=== PATIENT | female | born 1950 | race Caucasian/White ===

== ENCOUNTER 2020-02-24 15:37 | Inpatient (IN) | payer MEDICARE, SELFPAY ==
[2020-02-24] VITALS (7 sets, daily range): BP systolic 126–153; BP diastolic 50–69; PULSE 65–90; RESP 16–20; TEMP 36.6–36.7; O2SAT 95–98; BMI 28.5
--- NOTE | ~2020-02-24 | CT_ITS ---
EXAMINATION: CT abdomen pelvis w con DATE: 02/24/2020 19:38 INDICATION: Abdominal pain. TECHNIQUE: Computed tomography (CT) of the abdomen and pelvis was performed with 100 mL Omnipaque 350 intravenous contrast. Automated exposure control and iterative reconstruction technique were employe d. The dose-length product was 772.20 mGy-cm. COMPARISON: CT abdomen and pelvis 09/30/2017 FINDINGS: The visualized portions of the lung bases demonstrate minimal atelectasis on the left. No p leural effusion. There is left atrial enlargement of the heart. There are coronary artery calcificati ons. There are calcifications of the aortic valve. No pericardial effusion. The liver demonstrates samuels rface nodularity and hypertrophy of left lateral segment, consistent with cirrhosis. The spleen is no rmal in size. There are gallstones in the gallbladder, which is normal in size. The pancreas and adre nal glands are normal. There is cortical thinning of the kidneys. There is a 8 mm cyst in right kidne y. There is a left inguinal hernia containing fat. There is diverticulosis of the colon without evide nce of diverticulitis. There are no dilated loops of bowel. The appendix is normal. There are changes of fundoplication of the stomach. There are no pathologically enlarged lymph nodes. There is no free intraperitoneal fluid. There is calcified atherosclerosis of the aorta and many of the other arterie s. There is lumbar levocurvature and severe spondylosis. There is a chronic burst fracture of T12. Th ere is a chronic compression fracture of L3. IMPRESSION: 1. Cirrhosis of the liver. 2. Cholelithiasis. Reviewed, dictated and finalized at location A.
--- NOTE | 2020-02-24 16:11 | ECG_ITS ---
Measurements Intervals [place] Rate: 67 P: [place]: 0 QRS: -27 QRSD: 102 T: 52 QT: 435 QTc: 460 Interpretive Statements ATRIAL FIBRILLATION DELAYED PRECORDIAL R/S TRANSITION BASELINE ARTIFACT- I, III, AVR, AVL, AVF ABNORMAL ECG Electronically Signed On 02-24-2020 16:29:24 CDT by Bladimir Stein D.O.
[2020-02-24 16:22] LABS: Basophils Percent Auto 0.3 % (0.2-1.2); Eosinophils Absolute Auto 0.3 K/mm3 (0-0.3); Eosinophils Percent Auto 4.2 % (0-4.4); Hematocrit 32.1 % (37.0-47.0); Hemoglobin 10.2 g/dL (12.0-15.0); Immature Granulocyte Absolute 0.05 K/mm3 (0.00-0.031); Immature Granulocyte Percent A 0.8 % (0-0.5); Lymphocytes Absolute Auto 1.68 K/mm3 (0.9-3.2); Lymphocytes Percent Auto 27.2 % (18.3-44.2); Mean Corpuscular HGB Conc 31.8 g/dl (32-36); Mean Corpuscular Hemoglobin 28.5 pg (26-34); Mean Corpuscular Volume 89.7 fl (80-100); Monocytes Absolute Auto 0.6 K/mm3 (0.1-0.6); Monocytes Percent Auto 9.7 % (2.6-8.5); Neutrophils Absolute Auto 3.6 K/mm3 (1.3-6.7); Neutrophils Percent Auto 57.8 % (45.5-73.1); Platelet Count Result 159 k/mm3 (150-375); Red Blood Count 3.58 M/mm3 (4.2-5.4); Red Cell Distribution Width 16.6 % (11.5-14.5); White Blood Count 6.2 K/mm3 (4.5-10.0)
[2020-02-24 16:32] LABS: INR 1.1; Prothrombin Time 13.9 Seconds (11.1-14.7)
[2020-02-24 16:33] LABS: Partial Thromboplastin Time 29.2 SECONDS (22.3-36.8)
[2020-02-24 16:37] LABS: Alanine Aminotransferase 33 U/L (4-35); Albumin Level 4.5 g/dL (3.5-5.1); Alkaline Phosphatase 80 U/L (38-126); Anion Gap 8 mmol/L (8-16); Aspartate Amino Transferase 38 U/L (14-36); Bilirubin,Total 0.6 mg/dL (0.2-1.3); Blood Urea Nitrogen 31 mg/dL (7-17); Calcium 9.4 mg/dL (8.4-10.2); Carbon Dioxide 29 mmol/L (22-30); Chloride 98 mmol/L (98-107); Estimated CRCL calculation 38 ml/min; Estimated Glomerular Filt Rate 37; Glucose 145 mg/dL (65-105); Potassium 3.9 mmol/L (3.4-5.0); Sodium 135 mmol/L (137-145)
--- NOTE | 2020-02-24 18:02 | ED.GIBLEED ---
HPI - GI Bleed General Chief complaint: GI Bleed Stated complaint: abd pain last saturday w/ dark stool Time Seen by Provider: 02/24/20 17:54 Source: RN notes reviewed History of Present Illness HPI Narrative: Patient presents emergency department from home for GI bleed. Patient states that she had an episode of abdominal pain in the upper abdomen approximately 1 week ago. She states that since that time she has been having black stools. She states today she developed dizziness when she stands up she states she does have a history of seen Dr. Simon before in the past with EGD and has had gastric ulcers. She denies vomiting she denies any fevers or chills chest pain shortness of breath or any other symptoms. Patient states she is on a aspirin 81 mg daily but denies any other blood thinners Related Data Home Medications Medication Instructions Recorded Confirmed albuterol sulfate 90 mcg/actuation 2 puff INHALATION Q4-6H PRN gm 04/25/19 02/24/20 aerosol inhaler amlodipine 5 mg tablet 5 mg PO DAILY 04/25/19 02/24/20 aspirin 325 mg tablet 325 mg PO DAILY 04/25/19 02/24/20 bumetanide 2 mg tablet 2 mg PO DAILY 04/25/19 02/24/20 ferrous sulfate 325 mg (65 mg 325 mg PO DAILY 04/25/19 02/24/20 iron) tablet,delayed release magnesium oxide 400 mg (241.3 mg 400 mg PO DAILY 04/25/19 02/24/20 magnesium) tablet pravastatin 40 mg tablet 40 mg PO DAILY 04/25/19 02/24/20 Allergies Allergy/AdvReac Type Severity Reaction Status Date / Time codeine Allergy Intermediate Hives Verified 02/24/20 18:38 meperidine Allergy Intermediate Hives Verified 02/24/20 18:38 propoxyphene Allergy Intermediate Hives Verified 02/24/20 18:38 hydromorphone AdvReac Intermediate Hives Verified 02/24/20 18:38 KETCHUP Allergy Severe Hives, Uncoded 02/24/20 18:38 swelling Review of Systems Review of Systems: Narrative: Gen.: Denies fevers or chills ENT: Denies congestion Respiratory: Denies shortness of breath or cough CV: Denies chest pain or palpitations GI: See HPI denies burning, urgency, frequency or hematuria Musculoskeletal: Denies back pain or muscle pain Neuro: Denies numbness, tingling, weakness or focal weakness Skin: Denies rash Except as documented, all other systems reviewed and negative [facility] Past Medical History Medical History (Updated 02/25/20 @ 09:29 by Gabriele Tavares MD) Acute renal insufficiency Chronic renal failure Aortic valve stenosis Atrial fibrillation Paroxysmal Basal cell carcinoma Cirrhosis noted by CT scan in 2018 with portal venous hypertension COPD (chronic obstructive pulmonary disease) Diastolic congestive heart failure Encounter for removal of skin lesion H/O: GI bleed 2018 Hypercholesterolemia Hyperlipidemia Hypertensive heart disease Moderate aortic valve stenosis Paroxysmal atrial fibrillation Pulmonary hypertension Seizure Type 2 diabetes mellitus Surgical History Surgical History H/O arthroscopy of left knee H/O dilation and curettage H/O rectal polypectomy H/O shoulder surgery Bilateral pens that were later removed. H/O: hysterectomy History of Chelly fundoplication History of tonsillectomy Family History Family History Sibling Cerebrovascular accident, Onset Age: 60 Brother and sister Family history of renal failure Patient's sister is Patient's brother is Hypertension Brother Diabetes mellitus Brother and sister Mother Patient's mother is Family history of diabetes mellitus in first degree relative Heart disease Father Family history of malignant neoplasm, Onset Age: 88 Leukemia Hypertension Social History Social History Social History: The patient lives with her Pawan who is a durable power criminal attorney for he
[2020-02-24 18:19] LABS: Add Urine Microscopic? YES; Appearance Urine Clear (Clear); Bilirubin Urine Negative (Negative); Blood Urine Negative (Negative); Color Urine Straw (Yellow); Glucose Urine UA Negative (Negative); Ketones Urine Negative (Negative); Leukocyte Esterase Ur Negative LEU/UL (Negative); Nitrate Urine Negative (Negative); Protein Urine Negative (Negative); RBC Urine 0-2 /hpf (0-2); Specific Grav Ur 1.009 (1.001-1.035); Squamous Epithelial Cell Urine Occasional /hpf (Few); Urobilinogen Urine Negative mg/dL (<2.0); WBC Urine 0-3 /hpf
[2020-02-24 18:24] LABS: Lipase 97 U/L (23-300)
[2020-02-24] MEDS: PANTOPRAZOLE SODIUM IV 40 MG VIAL IV PUSH (18:27)
[2020-02-24 21:01] LABS: Glucose Point of Care 122 (65-105)
--- NOTE | 2020-02-24 21:01 | ADMGEN ---
This patient, Nisha Lu, was admitted to IMU Room 200-01. Patient/family oriented to hospital policies and general routines including ID bracelet, bed and alarms, visiting hours, pain management, procedures, bathroom and other care routines, personal items, smoking policy, room service/diet, and visiting hours. Valuables list has been completed. Information on how to activate the Rapid Response Team has been discussed. Patient/Family are encouraged to report perceived risks to care and to ask questions if they do not understand what they are told or what they should do. report from [facility] arrived approx [id number]
[2020-02-24] MEDS: SODIUM CHLORIDE 0.9% IV 1,000 ML 125 ML IV CONT (21:09)
[2020-02-24 21:32] LABS: Hematocrit 31.2 % (37.0-47.0); Hemoglobin 10.1 g/dL (12.0-15.0)
[2020-02-25] VITALS (18 sets, daily range): BP systolic 119–178; BP diastolic 50–65; PULSE 55–74; RESP 14–28; TEMP 36.1–36.9; O2SAT 96–100
--- NOTE | 2020-02-25 00:04 | PM.IMHP ---
H&P: HPI History of Present Illness Date/Time: 02/25/20 00:04 Chief complaint: GI blee, anemia, a fib Narrative: Nisha Lu is a 69 year old female who has had a history of having peptic ulcer disease in the past and had a fundoplication in the past. The patient has seen Dr. eller many years ago. The patient stated that she had epigastric pain about 1 week ago and had dark stools than a did have a stool for while. She does not take any iron supplement although ferrous sulfate is listed on her home medication list. Patient's hemoglobin 2 years ago was between 6 point drain 8.5. I have nothing to represent her lab work between 2018 and now. Other than today's H&H was 10.2 and 32.1 and repeat was 10.1 and 31.2. The patient called her primary care doctor who instructed her to come to the emergency room because the dark stools. The patient no longer has any epigastric discomfort. She is not having any bloody stools. She has no hematemesis either. Chills or cough. Patient developed some dizziness when she stands up. Patient still continues to smoke 2 or 3 cigarettes a day. Patient's BUN is 31 creatinine 1.4. However when I look into the past history in 2018 her creatinine was anywhere from 1.1-1.8.Of breath. The patient has a history of COPD. Patient has some valve regurgitation and sees [facility] ear. A CT then of the abdomen and pelvis was read as roses of the liver and cholelithiasis. Review of Systems Review of Systems: All systems reviewed & are unremarkable except as noted in HPI and below Constitutional: Constitutional: Reports as per HPI and Reports no additional constitutional complaints Eyes: Eyes: Reports as per HPI and Reports no additional eye complaints ENT: Reports system reviewed and no additional complaints, except as documented and Reports Normal hearing present Cardiovascular: Cardiovascular: Reports no additional cardiovascular complaints Respiratory: Respiratory: Reports no additional respiratory complaints and Reports no additional respiratory complaints Gastrointestinal: Gastrointestinal: Reports as per HPI and Reports no additional gastrointestinal complaints Musculoskeletal: Musculoskeletal: Reports no additional musculoskeletal complaints Integumentary/Breasts: Skin/Breast: Reports system reviewed and no additional complaints, except as docu and Reports as per HPI Neurologic: Reports system reviewed and no additional complaints, except as documented, Reports as per HPI and Reports Normal hearing present Psychiatric: Psychiatric: Reports no additional psychiatric complaints and Reports as per HPI Endocrine: Endocrine: Reports no additional endocrine complaints Hematologic/Lymphatic: Hematologic/Lymphatic: Reports no additional hematologic/lymphatic complaints Allergic/Immunologic: Allergic/Immunologic: Reports no additional allergic/immunologic complaints [facility] Past Medical History Medical History (Updated 02/25/20 @ 00:20 by Pamela Kaiser NP) Acute renal insufficiency Chronic renal failure Aortic valve stenosis Atrial fibrillation Paroxysmal Basal cell carcinoma COPD (chronic obstructive pulmonary disease) Diastolic congestive heart failure Encounter for removal of skin lesion Hypercholesterolemia Hyperlipidemia Hypertensive heart disease Moderate aortic valve stenosis Paroxysmal atrial fibrillation Pulmonary hypertension Seizure Type 2 diabetes mellitus Surgical History Surgical History (Updated 02/25/20 @ 00:20 by Pamela Kaiser NP) H/O arthroscopy of left knee H/O dilation and curettage H/O rectal polypectomy H/O shoulder surgery Bilateral pens that were later removed. H/O: hysterectomy History of Chelly fundoplication History of tonsillectomy Family History Family History (Updated 02/25/20 @ 00:22 by Pamela Kaiser NP) Sibling Cerebrovascular accident, Onset Age: 60 Brother and sister Family history of renal failure Patie
[2020-02-25 03:23] LABS: Basophils Percent Auto 0.5 % (0.2-1.2); Eosinophils Absolute Auto 0.3 K/mm3 (0-0.3); Eosinophils Percent Auto 4.2 % (0-4.4); Hematocrit 29.7 % (37.0-47.0); Hemoglobin 9.4 g/dL (12.0-15.0); Immature Granulocyte Absolute 0.05 K/mm3 (0.00-0.031); Immature Granulocyte Percent A 0.8 % (0-0.5); Lymphocytes Percent Auto 26.2 % (18.3-44.2); Mean Corpuscular HGB Conc 31.6 g/dl (32-36); Mean Corpuscular Hemoglobin 28.9 pg (26-34); Mean Corpuscular Volume 91.4 fl (80-100); Mean Platelet Volume 10.3 fl (7.4-10.4); Monocytes Absolute Auto 0.6 K/mm3 (0.1-0.6); Monocytes Percent Auto 9.1 % (2.6-8.5); Neutrophils Absolute Auto 3.8 K/mm3 (1.3-6.7); Neutrophils Percent Auto 59.2 % (45.5-73.1); Platelet Count Result 149 k/mm3 (150-375); Red Blood Count 3.25 M/mm3 (4.2-5.4); Red Cell Distribution Width 16.3 % (11.5-14.5); White Blood Count 6.5 K/mm3 (4.5-10.0)
[2020-02-25 03:32] LABS: Anion Gap 5 mmol/L (8-16); Blood Urea Nitrogen 25 mg/dL (7-17); Carbon Dioxide 27 mmol/L (22-30); Chloride 104 mmol/L (98-107); Estimated CRCL calculation 44 ml/min; Estimated Glomerular Filt Rate 45; Glucose 126 mg/dL (65-105); Potassium 3.8 mmol/L (3.4-5.0); Sodium 136 mmol/L (137-145)
[2020-02-25] MEDS: SODIUM CHLORIDE 0.9% IV 1,000 ML 125 ML IV CONT (05:35)
[2020-02-25 08:25] LABS: Hematocrit 29.6 % (37.0-47.0); Hemoglobin 9.5 g/dL (12.0-15.0)
[2020-02-25] MEDS: POTASSIUM CHLORIDE 10 MEQ TABLET.ER PO (08:28)
[2020-02-25] MEDS: PANTOPRAZOLE SODIUM IV 40 MG VIAL IV PUSH ×2 (08:28→17:33)
[2020-02-25] MEDS: METOPROLOL TARTRATE 25 MG TABLET PO ×2 (08:28→19:57)
[2020-02-25] MEDS: PRAVASTATIN SODIUM 20 MG TABLET 40 MG PO (08:28)
[2020-02-25] MEDS: MAGNESIUM OXIDE 400 MG TABLET PO (08:28)
[2020-02-25] MEDS: BUMETANIDE 1 MG TABLET 2 MG PO (08:29)
--- NOTE | 2020-02-25 08:58 | WPDCN ---
Assessment and Plan Assessment and plan (1) Atrial fibrillation: Code(s): I48.91 - Unspecified atrial fibrillation Status: Chronic Assessment and Plan: Patient with a history of paroxysmal AFib, now appears persistent, with a controlled heart rate of taking metoprolol 25 mg b.i.d. Has not been anticoagulated because of a history of GI bleeds. Considering referral for Watchman device, although patient still need to be able to take anticoagulants for short per time and then long-term aspirin (or Plavix). Will FU on this as OPT. Continue metoprolol. (2) Aortic valve stenosis: Code(s): I35.0 - Nonrheumatic aortic (valve) stenosis Status: Chronic Assessment and Plan: Moderate to severe aortic stenosis which appears asymptomatic. Followed in our office. Stable. (3) Diastolic congestive heart failure: Code(s): I50.30 - Unspecified diastolic (congestive) heart failure Status: Chronic Assessment and Plan: History of diastolic heart failure, appearing euvolemic now. Will follow fluid status during her hospital stay which may change depending on IV fluids, bleeding etc.. (4) GI bleed: Code(s): K92.2 - Gastrointestinal hemorrhage, unspecified Status: Acute Assessment and Plan: Melena with GI bleeding and a drop in hematocrit , while taking aspirin, occasional Naprosyn and pantoprazole. History of GI bleeds in the past. Mildly symptomatic with dizziness and mild orthostasis. Blood pressure medicines on hold. (5) Hypertensive heart disease: Code(s): I11.9 - Hypertensive heart disease without heart failure Status: Chronic Assessment and Plan: Blood pressure reasonably controlled. Spironolactone and amlodipine are on hold. Resume when we are sure she is hemodynamically stable. (6) COPD (chronic obstructive pulmonary disease): Code(s): J44.9 - Chronic obstructive pulmonary disease, unspecified Status: Chronic Assessment and Plan: Previously used Ellipta and albuterol inhalers. Seems moderately wheezy, will resume Albuteral. HPI Data of Consult Date/Time: 02/25/20 08:58 Requesting Physician: Mike Van MD Primary Care Provider: Enoch Gandhi DO Consult Narrative Narrative: Date of service: 02/25/2020 Nisha Lu is a 69 year old female We were asked to see at the request of the hospitalist for advice and opinion regarding her atrial fibrillation in consultation. She was admitted with melena and dizziness. She normally sees Dr. Colby for her paroxysmal atrial fibrillation, and aortic stenosis. The patient takes aspirin for her atrial fibrillation and Naprosyn p.r.n. for her DJD. She takes Protonix also. She was in her normal state of health until Saturday when she started having lower abdominal pain and melena. She has progressive dizziness and came to the emergency room yesterday. She was mildly orthostatic with her blood pressure dropping 25 points yesterday and her blood pressure medicines have been held. She is mildly anemic with a hematocrit status dropped down to 29. Dr. Linares has been consulted. She has been in persistent atrial fibrillation with a heart rate in the 60s. The patient has a history of a GI bleed when on Eliquis in the past. Subsequently she has been treated with aspirin and when she last saw Dr. Colby in May 2019 they discussed the Watchman device; she was going to to discuss with her and call back if she wanted to proceed with the procedure. She states that she has been distracted with her other health issues and COVID and never got back to the office. Her last echocardiogram was in July 2019 showing EF 67%, mild LVH, diastolic dysfunctio
--- NOTE | 2020-02-25 09:16 | WPDGICN ---
Assessment and Plan Assessment and plan (1) Melena: Code(s): K92.1 - Melena Status: Acute Assessment and Plan: will proceed with EGD today. she has known history of ulcer and also gastric AVM's, will check also for PGH (h/o cirrhosis), varices, etc continue with ppi for now, she is already npo trend hb (2) GI bleed: Code(s): K92.2 - Gastrointestinal hemorrhage, unspecified Status: Acute Assessment and Plan: monitor hb and transfuse if hb less than 7 (3) Cirrhosis: Code(s): K74.60 - Unspecified cirrhosis of liver Status: Acute Assessment and Plan: CT scan 2018 and again this time we will get blood work to further investigate for potential cause denies etoh, ? MEZA (4) Diastolic congestive heart failure: Code(s): I50.30 - Unspecified diastolic (congestive) heart failure Status: Chronic (5) COPD (chronic obstructive pulmonary disease): Code(s): J44.9 - Chronic obstructive pulmonary disease, unspecified Status: Chronic Assessment and Plan: by primary, still smoking counseled to quit (6) Atrial fibrillation: Code(s): I48.91 - Unspecified atrial fibrillation Status: Chronic Assessment and Plan: only using aspirin GI Consult Note Consult date/time: 02/25/20 09:16 Reason for consult: melena HPI: Nisha Lu is a 69 year old female with most recent hospitalization here 2017 with anemia, hb 7.2 and ferritin 3. She is a patient of Dr Henderson who has seen her several times because GIB, she had EGD in January 2015 and she was found to have a 2 cm antral ulcer, repeat EGD later 2014 confirmed healing of the gastric antral ulcer. She also had a previous colonoscopy in April 2016, revealing extensive diverticular disease, otherwise unremarkable. 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 She also has cirrhosis based on CT imaging, diastolic heart failure, COPD. She came to the hospital because last Saturday noted dark tarry stools and she has been feeling dizzy, also abdominal discomfort therefore called her doctor and was advised to come here. Blood work BUN is 31 creatinine 1.4, hb 9.4, inr 1.1, platelets 149 (130-140's in the past), ast 38, alb 4.5, normal bili. She is using pantoprazole at home, also aspirin no other blood thinners. Denies nsaid's Review of Systems Constitutional: Constitutional: Denies headache(s) and Reports weakness Eyes: Eyes: Denies blurry vision ENT: Reports Normal hearing present, Denies headache(s) and Denies neck pain Cardiovascular: Cardiovascular: Denies chest pain and Denies dyspnea Respiratory: Respiratory: Denies dyspnea Gastrointestinal: Gastrointestinal: Reports no additional gastrointestinal complaints Genitourinary: Genitourinary: Denies dysuria Musculoskeletal: Musculoskeletal: Denies neck pain Integumentary/Breasts: Skin/Breast: Denies dry skin Neurologic: Reports Normal hearing present, Reports dizziness and Denies weakness Psychiatric: Psychiatric: Denies anxiety Endocrine: Endocrine: Denies change in body appearance Hematologic/Lymphatic: Hematologic/Lymphatic: Denies easy bleeding Allergic/Immunologic: Allergic/Immunologic: Denies urticaria PMFSH Past Medical History Medical History (Updated 02/25/20 @ 09:29 by Gabriele Tavares MD) Acute renal insufficiency Chronic renal failure Aortic valve stenosis Atrial fibrillation Paroxysmal Basal cell carcinoma Cirrhosis noted by CT scan in 2018 with portal venous hypertension COPD (chronic obstructive pulmonary disease) Diastolic congestive heart failure Encounter for removal of skin lesion H/O: GI bleed 2018 Hypercholesterolemia Hyperlipidemia Hypertensive heart disease Moderate aortic valve stenosis Paroxysmal atrial fibrillation Pulmonary hypertension Seizure Type 2 diabe
--- NOTE | 2020-02-25 09:58 | PM.IMPN ---
Progress Note: A&P Assessment and Plan (1) Melena: Code(s): K92.1 - Melena Status: Acute Assessment and Plan: Patient is now s/p EGD, will resume a diet. Follow GI recs. Continue to monitor. (2) H/O: GI bleed: Code(s): Z87.19 - Personal history of other diseases of the digestive system Status: Acute Assessment and Plan: Hx of peptic ulcer and gastrici AVM, will continue to monitor. (3) Hyperlipidemia: Code(s): E78.5 - Hyperlipidemia, unspecified Status: Chronic Assessment and Plan: Low cholesterol, low fat high fiber diet. (4) Aortic valve stenosis: Code(s): I35.0 - Nonrheumatic aortic (valve) stenosis Status: Chronic Assessment and Plan: Stable, continue to monitor. Follow up i the outaptient setting. (5) Diastolic congestive heart failure: Code(s): I50.30 - Unspecified diastolic (congestive) heart failure Status: Chronic Assessment and Plan: Stable, does not appear to be in exacerbation. Continue to monitor. (6) COPD (chronic obstructive pulmonary disease): Code(s): J44.9 - Chronic obstructive pulmonary disease, unspecified Status: Chronic Assessment and Plan: Does not appear to in exacerbation, continue to monitor. (7) Hypertensive heart disease: Code(s): I11.9 - Hypertensive heart disease without heart failure Status: Chronic Assessment and Plan: Stable, resume home meds. Continue to monitor. (8) LENORA (obstructive sleep apnea): Code(s): G47.33 - Obstructive sleep apnea (adult) (pediatric) Status: Chronic Assessment and Plan: Encourage the use of CPAP at night time. (9) Atrial fibrillation: Code(s): I48.91 - Unspecified atrial fibrillation Status: Chronic Assessment and Plan: Rate controlled, has had GI bleed in the past currently on no anticoagulation. Appreciate Cardiology note.Follow recs. Subjective Date/time seen: 02/25/20 09:58 Patient seen and examined earlier today in the morning. Review of Systems Review of Systems: Narrative: Patient presented to ED due to having melena few episodes for the last 5 to 6 days. Constitutional: Comments: No weight loss, no fevers, no fatigue. Eyes: Comments: Denies any vision changes. ENT: Comments: No blurry vision, no throat pain, no ear pain, no hearing loss. Cardiovascular: Comments: No pnd or orthopnea, no sob, no chest pain. Respiratory: Comments: No changes, patient is a chronic smoker. Gastrointestinal: Gastrointestinal: Reports as per HPI Comments: Melena, several episodes. Musculoskeletal: Musculoskeletal: Reports no additional musculoskeletal complaints Integumentary/Breasts: Comments: Denies rashes, changes, discoloration, wounds. Neurologic: Comments: Denies sensation or motor deficit, no paresthesias as well. Exam Narrative: Exam Narrative: In bed in NAD, well appearing. Const: General: cooperative, healthy appearing, comfortable, no acute distress and well developed Nutritional Appearance: well nourished Orientation/consciousness: patient oriented x3 Limitations: no limitations HENMT: Head: normal to inspection and normocephalic Ears: hearing grossly normal bilaterally General nose exam: Normal external nose present Face and sinus: normal facial exam Mouth: Yes Normal oral and palatal mucosa present Eyes: General: appearance normal, both eyes and all related structures Pupils: Equal, round and reactive pupils present EOM: EOMs intact bilaterally Neck: Neck: normal visual inspection, full ROM, no lymphadenopathy and no JVD Thyroid: thyroid normal Resp: Effort & Inspection: normal respiratory effort Auscultation: clear to auscultation bilaterally Cardio: Jugular venous distension: no JVD Palpation: normal PMI Rate: regular rate Rhythm: regular rhythm Heart sounds: S1 normal heart sound present and S2 normal heart sound present GI: Inspection: normal to inspe
[2020-02-25] MEDS: LACTATED RINGERS 1,000 ML 150 ML IV CONT (12:15)
--- NOTE | 2020-02-25 12:17 | WPDANESEPPF ---
Anes - Initial Pre Proc Eval Procedure: Operation Date: 02/25/20 13:00 Proposed Procedures p Esophagogastroduodenoscopy - Gabriele Tavares MD Date/Time: 02/25/20 12:17 Surgeon: Mike Van MD Pre Op Diagnosis: GI blee, anemia, a fib Patient Data Age: 69 Gender: F Height: 1.7 m Weight: 82.3 kg Last Vital Signs Temp 36.8 C 02/25/20 12:16 Pulse 66 02/25/20 12:16 Resp 18 02/25/20 12:16 BP 178/50 H 02/25/20 12:16 Pulse Ox 97 02/25/20 12:16 Allergies Allergy/AdvReac Type Severity Reaction Status Date / Time codeine Allergy Intermediate Hives Verified 02/24/20 18:38 meperidine Allergy Intermediate Hives Verified 02/24/20 18:38 propoxyphene Allergy Intermediate Hives Verified 02/24/20 18:38 hydromorphone AdvReac Intermediate Hives Verified 02/24/20 18:38 KETCHUP Allergy Severe Hives, Uncoded 02/24/20 18:38 swelling Home Medications Medication Instructions Recorded Confirmed Type albuterol sulfate 90 mcg/actuation 2 puff INHALATION Q4-6H PRN gm 04/25/19 02/24/20 History aerosol inhaler amlodipine 5 mg tablet 5 mg PO DAILY 04/25/19 02/24/20 History aspirin 325 mg tablet 325 mg PO DAILY 04/25/19 02/24/20 History bumetanide 2 mg tablet 2 mg PO DAILY 04/25/19 02/24/20 History ferrous sulfate 325 mg (65 mg 325 mg PO DAILY 04/25/19 02/24/20 History iron) tablet,delayed release magnesium oxide 400 mg (241.3 mg 400 mg PO DAILY 04/25/19 02/24/20 History magnesium) tablet pravastatin 40 mg tablet 40 mg PO DAILY 04/25/19 02/24/20 History blood sugar diagnostic #100 each 04/30/19 02/24/20 Rx blood-glucose meter #1 each 04/30/19 02/24/20 Rx metoprolol tartrate 25 mg tablet 25 mg PO BID #60 tablet 05/11/19 02/24/20 Rx sucralfate 1 gram tablet 1 gm PO QID #120 tablet 08/02/19 02/24/20 Rx potassium chloride 10 mEq 10 meq PO DAILY #90 tablet 10/07/19 02/24/20 Rx tablet,extended release spironolactone 25 mg tablet 25 mg PO DAILY #30 tablet 11/09/19 02/24/20 Rx pantoprazole 40 mg tablet,delayed 40 mg PO QAM #30 tablet 11/10/19 02/24/20 Rx release Laboratory Tests 02/24/20 02/24/20 02/24/20 16:07 16:07 16:07 WBC 6.2 K/mm3 K/mm3 (4.5-10.0) RBC 3.58 M/mm3 L M/mm3 (4.2-5.4) Hgb 10.2 g/dL L g/dL (12.0-15.0) Hct 32.1 % L % (37.0-47.0) MCV 89.7 fl fl (80-100) MCH 28.5 pg pg (26-34) MCHC 31.8 g/dl L g/dl (32-36) RDW 16.6 % H % (11.5-14.5) Plt Count 159 k/mm3 k/mm3 (150-375) MPV 10.0 fl fl (7.4-10.4) Immature Gran % (Auto) 0.8 % H % (0-0.5) Neut % (Auto) 57.8 % % (45.5-73.1) Lymph % (Auto) 27.2 % % (18.3-44.2) Wilkin % (Auto) 9.7 % H % (2.6-8.5) Eos % (Auto) 4.2 % % (0-4.4) Baso % (Auto) 0.3 % % (0.2-1.2) Lymph # (Auto) 1.68 K/mm3 K/mm3 (0.9-3.2) Wilkin # (Auto) 0.6 K/mm3 K/mm3 (0.1-0.6) Eos # (Auto) 0.3 K/mm3 K/mm3 (0-0.3) Baso # (Auto) 0.0 K/mm3 K/mm3 (0.0-0.1) Abs Immat Gran (auto) 0.05 K/mm3 H K/mm3 (0.00-0.031) Absolute Neuts (auto) 3.6 K/mm3 K/mm3 (1.3-6.7) Absolute Nucleated RBC 0.0 K/mm3 K/mm3 (0.0-0.012) Nucleated RBC % 0.0 % % (0.0-0.2) PT 13.9 Seconds Seconds (11.1-14.7) INR 1.1 APTT 29.2 SECONDS SECONDS (22.3-36.8) Sodium 135 mmol/L L mmol/L (137-145) Potassium 3.9 mmol/L mmol/L (3.4-5.0) Chloride 98 mmol/L mmol/L (98-107) Carbon Dioxide 29 mmol/L mmol/L (22-30) Anion Gap 8 mmol/L mmol/L (8-16) BUN 31 mg/dL H mg/dL (7-17) Creatinine 1.40 mg/dL H mg/dL (0.7-1.0) Estim Creat Clear Calc 38 ml/min ml/min Estimated GFR 37 L (59 - ) Glucose 145 mg/dL H mg/dL (65-105) POC Capillary Glucose Calcium 9.4 mg/dL mg/dL (8.4-10
--- NOTE | 2020-02-25 20:49 | PC.NURSE ---
This patient, Nisha Lu, was transferred to [facility] on 02/25/20 at 2049. Personal belongings sent with patient. Belongings list checked and signed with receiving. Report given to [employer] AGUILAR. Appropriate documentation sent with patient.
[2020-02-26 06:01] VITALS: BP 134/52; PULSE 60; RESP 17; TEMP 36.5; O2SAT 97
[2020-02-26 07:08] LABS: Iron 44 ug/dL (37-170)
[2020-02-26 07:17] LABS: Percent Iron Saturation 11 % (20-50)
[2020-02-26 07:31] LABS: Hepatitis B Surface Antigen Negative (Negative)
[2020-02-26 07:37] LABS: HAV RESULT Negative (Negative); Hepatitis B Core IgM Result Negative (Negative)
[2020-02-26 07:48] LABS: Hepatitis C Virus Antibody Negative (Negative)
[2020-02-26 08:07] LABS: Magnesium 1.9 mg/dL (1.6-2.3)
[2020-02-26 08:12] LABS: Hematocrit 30.8 % (37.0-47.0); Hemoglobin 9.8 g/dL (12.0-15.0); Mean Corpuscular HGB Conc 31.8 g/dl (32-36); Mean Corpuscular Hemoglobin 28.8 pg (26-34); Mean Corpuscular Volume 90.6 fl (80-100); Mean Platelet Volume 10.4 fl (7.4-10.4); Platelet Count Result 173 k/mm3 (150-375); Red Cell Distribution Width 15.9 % (11.5-14.5); White Blood Count 6.1 K/mm3 (4.5-10.0)
--- NOTE | 2020-02-26 09:08 | WPDGIPROGNO ---
Progress Note: A&P Assessment and Plan (1) AVM (arteriovenous malformation) of stomach, acquired: Code(s): K31.819 - Angiodysplasia of stomach and duodenum without bleeding Status: Acute Assessment and Plan: non-bleeding but treated with apc denies any more bleeding and she is not feeling dizzy anymore tolerated diet hb stable she can go home by gi standpoint. (2) Melena: Code(s): K92.1 - Melena Status: Acute Assessment and Plan: resolved (3) Cirrhosis: Code(s): K74.60 - Unspecified cirrhosis of liver Status: Acute Assessment and Plan: work up pending, she can see me in office in 3-4 weeks ? mckeon related (4) Atrial fibrillation: Code(s): I48.91 - Unspecified atrial fibrillation Status: Chronic Assessment and Plan: ok to use aspirin, she is not using any other blood thinners (5) Aortic valve stenosis: Code(s): I35.0 - Nonrheumatic aortic (valve) stenosis Status: Chronic (6) Anemia: Code(s): D64.9 - Anemia, unspecified Status: Acute Assessment and Plan: stable and chronic Subjective Date/time seen: 02/26/20 09:08 Interval history: no melena, no pain or feeling dizzy. Tolerated diet EGD found small non-bleeding avm in stomach treated with apc Review of Systems Review of Systems: All systems reviewed & are unremarkable except as noted in HPI and below Exam Const: General: comfortable and no acute distress HENMT: General nose exam: Normal nares present Eyes: General: appearance normal, both eyes and all related structures Neck: Neck: no JVD Resp: Auscultation: clear to auscultation bilaterally Cardio: Rhythm: abnormal rhythm GI: Inspection: non-distended GI Palp: Yes Soft to palpation Auscultation: normal bowel sounds Skin: General skin exam: normal color Neuro: General: gait normal Speech: normal speech Extrem: General: normal to inspection Psych: Mental Status: mental status grossly normal Objective Data Vital Signs Vital Signs: Vital Signs - 24 hr 02/25/20 10:00 02/25/20 12:00 02/25/20 12:16 Temperature 98.3 F Pulse Rate 55 L 67 66 Respiratory Rate 18 Blood Pressure 178/50 H Pulse Oximetry 97 02/25/20 13:11 02/25/20 13:21 02/25/20 13:31 Temperature Pulse Rate 70 66 61 Respiratory Rate 28 H 20 22 H Blood Pressure 139/59 L 133/54 L 133/54 L Pulse Oximetry 100 100 99 02/25/20 14:00 02/25/20 16:00 02/25/20 19:54 Temperature 98.4 F Pulse Rate 68 64 Respiratory Rate 18 Blood Pressure 123/65 141/51 H Pulse Oximetry 97 02/25/20 19:57 02/26/20 06:01 Temperature 97.7 F Pulse Rate 65 60 Respiratory Rate 17 Blood Pressure 134/52 L Pulse Oximetry 97 Intake/Output Intake/Output: Intake & Output 02/23/20 02/24/20 02/25/20 02/26/20 23:59 23:59 23:59 23:59 Intake Total 1940 400 Output Total 2650 Balance -710 400 Meds/Results Medications: Active Medications Generic Name Dose Route Start Last Admin Trade Name Freq PRN Reason Stop Dose Admin Albuterol 2 puff 02/25/20 00:02 Proventil Hfa INHALATION Q4-6H PRN Shortness Of Breath Bumetanide 2 mg 02/25/20 09:00 02/25/20 08:29 Bumex Po PO 2 mg DAILY ZULEIKA Administration Magnesium Oxide 400 mg 02/25/20 09:00 02/25/20 08:28 Mag-Ox PO 400 mg DAILY ZULEIKA Administration Metoprolol Tartrate 25 mg 02/25/20 09:00 02/25/20 19:57 Lopressor PO 25 mg Q12HR ZULEIKA Administration Pantoprazole Sodium 40 mg 02/25/20 09:00 02/25/20 17:33 Protonix Iv IV PUSH 40 mg BID ZULEIKA Administration Potassium Chloride 10 meq 02/25/20 08:00 02/25/20 08:28 Kcl Tablet PO 10 meq DAILY@0800 ZULEIKA Administration Pravastatin Sodium 40 mg 02/25/20 09:00 02/25/20 08:28 Pravastatin Sodium PO 40 mg DAILY ZULEIKA Administration Radiology Results: ITS Impressions Abdomen/Pelvis CT 02/24/20 20:04 IMPRESSION: 1. Cirrhosis of t
[2020-02-26] MEDS: MAGNESIUM OXIDE 400 MG TABLET PO (09:23)
[2020-02-26] MEDS: BUMETANIDE 1 MG TABLET 2 MG PO (09:23)
[2020-02-26] MEDS: PANTOPRAZOLE SODIUM IV 40 MG VIAL IV PUSH (09:23)
[2020-02-26 09:24] VITALS: PULSE 73
[2020-02-26] MEDS: PRAVASTATIN SODIUM 20 MG TABLET 40 MG PO (09:24)
[2020-02-26] MEDS: POTASSIUM CHLORIDE 10 MEQ TABLET.ER PO (09:24)
[2020-02-26] MEDS: METOPROLOL TARTRATE 25 MG TABLET PO (09:24)
[2020-02-26 10:24] LABS: Anion Gap 6 mmol/L (8-16); Blood Urea Nitrogen 21 mg/dL (7-17); Calcium 9.1 mg/dL (8.4-10.2); Carbon Dioxide 28 mmol/L (22-30); Chloride 101 mmol/L (98-107); Estimated CRCL calculation 43 ml/min; Estimated Glomerular Filt Rate 45; Glucose 123 mg/dL (65-105); Sodium 135 mmol/L (137-145)
--- NOTE | 2020-02-26 10:34 | PM.DS ---
DS: Admitting Diagnosis Admitting Diagnosis Admitting Diagnosis: GI blee, anemia, a fib DS: Discharge Diagnosis Discharge Diagnosis (1) Anemia: Code(s): D64.9 - Anemia, unspecified Status: Acute Assessment and Plan: Follow up in the outpatient setting.Patient is known to have AVM. (2) AVM (arteriovenous malformation) of stomach, acquired: Code(s): K31.819 - Angiodysplasia of stomach and duodenum without bleeding Status: Acute Assessment and Plan: Follow up in the outpatient setting. (3) Melena: Code(s): K92.1 - Melena Status: Acute Assessment and Plan: Resolved, underwent EGD. (4) Aortic valve stenosis: Qualifiers: Cardiac valve disease etiology: nonrheumatic Qualified Code(s): I35.0 - Nonrheumatic aortic (valve) stenosis Code(s): I35.0 - Nonrheumatic aortic (valve) stenosis Status: Chronic Assessment and Plan: Unchanged, follow up in the outpatient setting. (5) COPD (chronic obstructive pulmonary disease): Code(s): J44.9 - Chronic obstructive pulmonary disease, unspecified Status: Chronic Assessment and Plan: Stable, continue home meds, continue to monitor. (6) Acute renal insufficiency: Code(s): N28.9 - Disorder of kidney and ureter, unspecified Status: Chronic Assessment and Plan: Mildly elevated creatinine (7) Atrial fibrillation: Qualifiers: Atrial fibrillation type: persistent (not longstanding) Qualified Code(s): I48.19 - Other persistent atrial fibrillation Code(s): I48.91 - Unspecified atrial fibrillation Status: Chronic Assessment and Plan: Stable, rate controlled. (8) GI bleed: Code(s): K92.2 - Gastrointestinal hemorrhage, unspecified Status: Acute Assessment and Plan: S/O EGD. DS: Summary Time Spent with Patient Time attestation: Total time spent providing and/or coordinating discharge services: Exam Narrative: Exam Narrative: 69 yo presented to ED due to melena, well appearing. Const: General: no acute distress Nutritional Appearance: average body habitus HENMT: Head: normal to inspection Ears: hearing grossly normal bilaterally General nose exam: Normal external nose present Face and sinus: normal facial exam Mouth: Yes Normal oral and palatal mucosa present Eyes: General: appearance normal, both eyes and all related structures Pupils: Equal, round and reactive pupils present EOM: EOMs intact bilaterally Neck: Neck: full ROM, no lymphadenopathy and no JVD Resp: Auscultation: clear to auscultation bilaterally Cardio: Jugular venous distension: no JVD Heart sounds: Murmur heart sound present (Aortic area.) diastolic GI: Inspection: normal to inspection GI Palp: Yes Soft to palpation and Yes No hepatosplenomegaly present Auscultation: normal bowel sounds Skin: General skin exam: normal color Lesions: no lesions Rashes: no rashes Wounds: no wounds Neuro: General: patient oriented x3 Cranial nerves: Yes CN's II-XII intact bilaterally and Yes Equal, round and reactive pupils present Extrem: General: normal to inspection DS: Data Data Completed and Pending Pending studies at discharge: Pending at discharge 02/25/20 13:05 Surgical [PTH] Routine Labs on day of discharge: Labs from last 24 hours 02/26/20 02/26/20 02/26/20 06:00 06:00 06:00 WBC RBC Hgb Hct MCV MCH MCHC RDW Plt Count MPV Sodium 135 L Potassium 4.0 Chloride 101 Carbon Dioxide 28 Anion Gap 6 L BUN 21 H Creatinine 1.20 H Estim Creat Clear Calc 43 Estimated GFR 45 L Glucose 123 H Calcium 9.1 Magnesium Iron TIBC % Saturation Ferritin Alpha-1-AT Phenotype Ceruloplasmin TSH (Reflex) NACHO Screen Mitochondria M2 IgG Ab Pending Hepatitis A IgM Ab Negative Hep Bs Antigen Negative Hep B Core IgM Ab Negative
--- NOTE | 2020-02-26 11:19 | PM.PNCARD ---
Progress Note: A&P Assessment and Plan (1) Atrial fibrillation: Qualifiers: Atrial fibrillation type: persistent (not longstanding) Qualified Code(s): I48.19 - Other persistent atrial fibrillation Code(s): I48.91 - Unspecified atrial fibrillation Status: Chronic Assessment and Plan: History of paroxysmal AFib, now appears persistent, with a controlled heart rate of taking metoprolol 25 mg b.i.d. Has not been anticoagulated because of a history of GI bleeds. Considering referral for Watchman device, although she would still need to be able to take anticoagulants for short per time and then long-term aspirin (or Plavix). Will follow-up with Dr Colby in the office or by telephone/video appointment. Continue metoprolol. (2) Aortic valve stenosis: Qualifiers: Cardiac valve disease etiology: nonrheumatic Qualified Code(s): I35.0 - Nonrheumatic aortic (valve) stenosis Code(s): I35.0 - Nonrheumatic aortic (valve) stenosis Status: Chronic Assessment and Plan: Moderate to severe aortic stenosis which appears asymptomatic. Followed in our office. Stable. (3) Diastolic congestive heart failure: Qualifiers: Heart failure chronicity: chronic Qualified Code(s): I50.32 - Chronic diastolic (congestive) heart failure Code(s): I50.30 - Unspecified diastolic (congestive) heart failure Status: Chronic Assessment and Plan: History of diastolic heart failure, appearing euvolemic now. Metoprolol was continued through her hospital stay. She was also continued on her Bumex 2 mg daily. (4) GI bleed: Code(s): K92.2 - Gastrointestinal hemorrhage, unspecified Status: Acute Assessment and Plan: Melena with GI bleeding and a drop in hematocrit , while taking aspirin, occasional Naprosyn and pantoprazole. History of GI bleeds in the past. Mildly symptomatic with dizziness and mild orthostasis. No further dizziness. EGD : Single AVM evident in the body of the stomach with an average size of 2 mm. The AVM was not actively bleeding. The lesion was ablated with APC successfully. The bulb and 2nd portion the duodenum were normal with no ulcers or masses. Mild localized gastritis is seen in the gastric cardia with scarring tissue in the pre-pyloric area mostly from healed ulcer no signs of bleeding. Gastritis has mild erythema. Multiple biopsies were taken. Continue PPI. OK to use aspirin per Dr Tavares (5) Hypertensive heart disease: Qualifiers: Heart failure presence: without heart failure Qualified Code(s): I11.9 - Hypertensive heart disease without heart failure Code(s): I11.9 - Hypertensive heart disease without heart failure Status: Chronic Assessment and Plan: Blood pressure reasonably controlled. Spironolactone and amlodipine are on hold. Resume when we are sure she is hemodynamically stable. Orthostatics 150/57 lying, 151/70 sitting, 143/54 standing Resume spironolactone and amlodipine tomorrow. (6) COPD (chronic obstructive pulmonary disease): Code(s): J44.9 - Chronic obstructive pulmonary disease, unspecified Status: Chronic Assessment and Plan: Previously used Ellipta and albuterol inhalers. Seems moderately wheezy, will resume Albuteral. Still smoking approximately 6 cigarettes per day. Smoking cessation counseling done Additional Plan OK to discharge from cardiac standpoint. See discharge instructions for follow-up Plan discussed with Dr. Medrano 1140 02/26/2020 Subjective Date/time seen: 02/26/20 11:19 Interval history: Follow-up for: Atrial fibrillation now -persistent, aortic valve stenosis, G
[2020-02-26 11:40] VITALS: BP 150/57
[2020-02-26 11:41] VITALS: BP 143/54; BP 151/70
[2020-03-01 22:06] LABS: Mitochondrial (M2) Ab (IgG) <=20.0 U (<=20.0)
[2020-03-02 22:15] LABS: Ceruloplasmin 38 mg/dL (18-53)
[2020-03-03 12:00] LABS: Anti Nuclear Antibody Pattern Nuclear, Speckled; Anti Nuclear Antibody Titer 1:40 (Negative)
== END 2020-02-26 12:45 | disposition home or self-care (01) | DRG 378 ==
LOC: ANHED 18:47 → ANHIMU 19:29 → ANH3MED 02-26 10:34 → ANHIMU 03-01 16:34
PROVIDERS: Emergency Medicine; Internal Medicine Gastroenterology; Internal Medicine Hematology & Oncology; Nurse Practitioner; Admitting Provider Family Medicine; Emergency Provider Emergency Medicine; PCP Internal Medicine; Visit Provider Internal Medicine
PROC: 0DJ08ZZ Inspection of Upper Intestinal Tract, Via Natural or Artificial Opening Endoscopic (ICD-10-PCS; CPT 43235; principal; 2020-02-25 13:00)
DX: K31.811 Angiodysplasia of stomach and duodenum with bleeding (principal); I13.0 Hypertensive heart and chronic kidney disease with heart failure and stage 1 through stage 4 chronic kidney disease, or unspecified chronic kidney disease; I50.32 Chronic diastolic (congestive) heart failure; K76.6 Portal hypertension; I48.19 Other persistent atrial fibrillation; I27.20 Pulmonary hypertension, unspecified; K29.70 Gastritis, unspecified, without bleeding; Z28.21 Immunization not carried out because of patient refusal; D64.9 Anemia, unspecified; I35.0 Nonrheumatic aortic (valve) stenosis; J44.9 Chronic obstructive pulmonary disease, unspecified; G47.33 Obstructive sleep apnea (adult) (pediatric); E11.22 Type 2 diabetes mellitus with diabetic chronic kidney disease; N18.9 Chronic kidney disease, unspecified; K74.60 Unspecified cirrhosis of liver; E78.5 Hyperlipidemia, unspecified; F17.210 Nicotine dependence, cigarettes, uncomplicated; Z79.82 Long term (current) use of aspirin; Z87.11 Personal history of peptic ulcer disease
CPT/HCPCS: 36415; 74177; 80048; 80053; 80074; 81001; 82104; 82390; 82728; 83520; 83540; 83550; 83690; 83735; 84443; 85014; 85018; 85025; 85027; 85610; 85730; 86038; 86039; 86850; 86900; 86901; 88305; 93005; 96361; 96374; 96376; 99285; A9270; C9113; G0378; J2704; J7030; J7120; Q9967

== ENCOUNTER 2020-03-30 06:48 | Outpatient (NON) | payer MEDICARE, SELFPAY ==
[2020-03-30 23:56] LABS: SARS-CoV-2 RNA PCR Negative
== END 2020-03-30 06:49 ==
LOC: ANHCOVIDDT 06:51
PROVIDERS: PCP Internal Medicine; Visit Provider Internal Medicine
DX: Z20.828 Contact with and (suspected) exposure to other viral communicable diseases (principal); R50.9 Fever, unspecified
CPT/HCPCS: 87635; C9803; U0003

== ENCOUNTER 2020-09-01 11:24 | Inpatient (IN) | payer MEDICARE, SELFPAY ==
[2020-09-01] VITALS (28 sets, daily range): BP systolic 122–181; BP diastolic 48–65; PULSE 62–77; RESP 15–24; TEMP 36.4–36.8; O2SAT 98–100
[2020-09-01 11:50] LABS: Basophils Absolute Auto 0.1 K/mm3 (0.0-0.1); Basophils Percent Auto 0.6 % (0.2-1.2); Eosinophils Absolute Auto 0.4 K/mm3 (0-0.3); Eosinophils Percent Auto 4.6 % (0-4.4); Hemoglobin 8.1 g/dL (12.0-15.0); Immature Granulocyte Absolute 0.04 K/mm3 (0.00-0.031); Immature Granulocyte Percent A 0.5 % (0-0.5); Lymphocytes Absolute Auto 2.33 K/mm3 (0.9-3.2); Lymphocytes Percent Auto 27.5 % (18.3-44.2); Mean Corpuscular Hemoglobin 22.8 pg (26-34); Mean Corpuscular Volume 76.1 fl (80-100); Mean Platelet Volume 9.9 fl (7.4-10.4); Monocytes Absolute Auto 0.8 K/mm3 (0.1-0.6); Monocytes Percent Auto 9.6 % (2.6-8.5); Neutrophils Absolute Auto 4.8 K/mm3 (1.3-6.7); Neutrophils Percent Auto 57.2 % (45.5-73.1); Platelet Count Result 213 k/mm3 (150-375); Red Blood Count 3.55 M/mm3 (4.2-5.4); White Blood Count 8.5 K/mm3 (4.5-10.0)
--- NOTE | 2020-09-01 11:53 | ED.GIBLEED ---
HPI - GI Bleed General Chief complaint: GI Bleed Stated complaint: GI bleeding, Dizzy Time Seen by Provider: 09/01/20 11:43 Source: patient Mode of arrival: ambulatory Limitations: no limitations History of Present Illness HPI Narrative: Patient is 69 years old white female presents with black stool, noticed today. Patient reports lower abdominal discomfort 3 days ago, today about abdominal cramps. History of GI bleed secondary to gastric peptic ulcer disease which was cauterized March 2020. Patient on baby aspirin once a day, actively smoking and drinking alcohol. Patient is not on any antacid. Patient denies any fever, chills, or vomiting. Related Data Home Medications Medication Instructions Recorded Confirmed albuterol sulfate 90 mcg/actuation 2 puff INHALATION Q4-6H PRN gm 04/25/19 02/24/20 aerosol inhaler amlodipine 5 mg tablet 5 mg PO DAILY 04/25/19 02/24/20 aspirin 325 mg tablet 325 mg PO DAILY 04/25/19 02/24/20 bumetanide 2 mg tablet 2 mg PO DAILY 04/25/19 02/24/20 ferrous sulfate 325 mg (65 mg 325 mg PO DAILY 04/25/19 02/24/20 iron) tablet,delayed release magnesium oxide 400 mg (241.3 mg 400 mg PO DAILY 04/25/19 02/24/20 magnesium) tablet pravastatin 40 mg tablet 40 mg PO DAILY 04/25/19 02/24/20 Allergies Allergy/AdvReac Type Severity Reaction Status Date / Time codeine Allergy Intermediate Hives Verified 02/24/20 18:38 meperidine Allergy Intermediate Hives Verified 02/24/20 18:38 propoxyphene Allergy Intermediate Hives Verified 02/24/20 18:38 hydromorphone AdvReac Intermediate Hives Verified 02/24/20 18:38 KETCHUP Allergy Severe Hives, Uncoded 02/24/20 18:38 swelling Review of Systems Review of Systems: Narrative: CONSTITUTIONAL: Denies fever, chills, or sweats. EYES: Denies visual changes, redness, or discharge. ENT: Denies rhinorrhea, congestion, sore throat, or otalgia. CARDIOVASCULAR: Denies chest pain, palpitations, or edema. RESPIRATORY: Denies cough or dyspnea. GASTROINTESTINAL: Denies abdominal pain, nausea, vomiting, or diarrhea. GENITOURINARY: Denies dysuria or hematuria. SKIN: Denies rash or itching. MUSCULOSKELETAL: Denies back pain, joint pain, or myalgia. NEUROLOGIC: Denies headache, numbness, or weakness. PSYCHIATRIC: Denies anxiety or depression. [facility] Past Medical History Medical History Acute renal insufficiency Chronic renal failure Anemia Aortic valve stenosis Atrial fibrillation Paroxysmal AVM (arteriovenous malformation) of stomach, acquired Basal cell carcinoma Cirrhosis noted by CT scan in 2018 with portal venous hypertension COPD (chronic obstructive pulmonary disease) Diastolic congestive heart failure Encounter for removal of skin lesion H/O: GI bleed 2018 Hypercholesterolemia Hyperlipidemia Hypertensive heart disease Moderate aortic valve stenosis Paroxysmal atrial fibrillation Pulmonary hypertension Seizure Type 2 diabetes mellitus Surgical History Surgical History H/O arthroscopy of left knee H/O dilation and curettage H/O rectal polypectomy H/O shoulder surgery Bilateral pens that were later removed. H/O: hysterectomy History of Chelly fundoplication History of tonsillectomy Family History Family History Sibling Cerebrovascular accident, Onset Age: 60 Brother and sister Family history of renal failure Patient's sister is Patient's brother is Hypertension Brother Diabetes mellitus Brother and sister Mother Patient's mother is Family history of diabetes mellitus in first degree relative Heart disease Father Family history of malignant neoplasm, Onset Age: 88 Leukemia Hypertension Social History Social History Social History: The patient lives w
[2020-09-01 11:59] LABS: Prothrombin Time 13.7 Seconds (11.1-14.7)
[2020-09-01 12:00] LABS: Partial Thromboplastin Time 26.5 SECONDS (22.3-36.8)
[2020-09-01 12:04] LABS: Alanine Aminotransferase 23 U/L (4-35); Albumin Level 4.2 g/dL (3.5-5.1); Alkaline Phosphatase 78 U/L (38-126); Anion Gap 8 mmol/L (8-16); Aspartate Amino Transferase 38 U/L (14-36); Bilirubin,Total 0.5 mg/dL (0.2-1.3); Blood Urea Nitrogen 32 mg/dL (7-17); Calcium 9.3 mg/dL (8.4-10.2); Carbon Dioxide 29 mmol/L (22-30); Chloride 100 mmol/L (98-107); Estimated CRCL calculation 39 ml/min; Estimated Glomerular Filt Rate 41; Glucose 141 mg/dL (65-105); Potassium 4.6 mmol/L (3.4-5.0); Sodium 137 mmol/L (137-145)
[2020-09-01 12:08] LABS: Magnesium 2.2 mg/dL (1.6-2.3)
[2020-09-01] MEDS: PANTOPRAZOLE SODIUM IV 40 MG VIAL IV PUSH ×2 (12:08→20:33)
[2020-09-01] MEDS: SODIUM CHLORIDE 0.9% IV 1,000 ML 999 ML IV CONT (12:08)
[2020-09-01 12:30] LABS: Lactic Acid Reflex 1.5 mmol/L (0.7-2.1)
[2020-09-01 13:15] LABS: Hematocrit 24.6 % (37.0-47.0); Hemoglobin 7.4 g/dL (12.0-15.0)
--- NOTE | 2020-09-01 14:19 | PM.IMHP ---
H&P: HPI History of Present Illness Date/Time: 09/01/20 14:19 this is a 69-year-old female patient who has a history of paroxysmal atrial fibrillation. She is no longer on any anticoagulation. She has history of AVM of the stomach. The patient was admitted here on 02/25/2020 for GI bleed and was seen by Dr. Linares and had an EGD at that admission. Patient also has a history of cirrhosis. She has nonrheumatic aortic valve stenosis which is chronic as well. It was noted that the patient's AVM will be treated with APC. She she received the okay to return back to her daily aspirin. The patient came in with black stools that she noticed earlier today. She has been having some abdominal cramping for the last 3 days. The patient stated that it was more like a muscle cramp. She has been taking the aspirin once a day. She has not been on any antacids. She denied any fever chills or vomiting. 7.4 and 24.6 today. Her previous H&H was 11.1 and 37.2 May of last year. Otherwise her hemoglobin is typically 9 or 10. The same as what it typically is. She has chronic renal failure stage 3. The patient is being admitted to inpatient status on the date of service of 09/01/2020. Chief Complaint: GI bleed Review of Systems Review of Systems: All systems reviewed & are unremarkable except as noted in HPI and below Constitutional: Constitutional: Reports as per HPI and Reports no additional constitutional complaints Eyes: Eyes: Reports as per HPI and Reports no additional eye complaints ENT: Reports system reviewed and no additional complaints, except as documented and Reports Normal hearing present Cardiovascular: Cardiovascular: Reports no additional cardiovascular complaints Respiratory: Respiratory: Reports no additional respiratory complaints and Reports no additional respiratory complaints Gastrointestinal: Gastrointestinal: Reports as per HPI and Reports no additional gastrointestinal complaints Musculoskeletal: Musculoskeletal: Reports no additional musculoskeletal complaints Integumentary/Breasts: Skin/Breast: Reports system reviewed and no additional complaints, except as docu and Reports as per HPI Neurologic: Reports system reviewed and no additional complaints, except as documented, Reports as per HPI and Reports Normal hearing present Psychiatric: Psychiatric: Reports no additional psychiatric complaints and Reports as per HPI Endocrine: Endocrine: Reports no additional endocrine complaints Hematologic/Lymphatic: Hematologic/Lymphatic: Reports no additional hematologic/lymphatic complaints Allergic/Immunologic: Allergic/Immunologic: Reports no additional allergic/immunologic complaints PMFSH Past Medical History Medical History Acute renal insufficiency Chronic renal failure Anemia Aortic valve stenosis Atrial fibrillation Paroxysmal AVM (arteriovenous malformation) of stomach, acquired Basal cell carcinoma Cirrhosis noted by CT scan in 2018 with portal venous hypertension COPD (chronic obstructive pulmonary disease) Diastolic congestive heart failure Encounter for removal of skin lesion H/O: GI bleed 2018 History of obstructive sleep apnea Intolerant of the CPAP Hypercholesterolemia Hyperlipidemia Hypertensive heart disease Moderate aortic valve stenosis Paroxysmal atrial fibrillation Pulmonary hypertension Seizure Type 2 diabetes mellitus Surgical History Surgical History H/O arthroscopy of left knee H/O dilation and curettage H/O rectal polypectomy H/O shoulder surgery Bilateral pens that were later removed. H/O: hysterectomy History of Chelly fundoplication History of tonsillectomy Family History Family History Sibling Cerebrovascular accident, Onset Age: 60 Brother and sister Family history of renal failure Pa
--- NOTE | 2020-09-01 16:00 | ADMGEN ---
This patient, Nisha Lu, was admitted to [facility] Surg Room 303-01. Patient/family oriented to hospital policies and general routines including ID bracelet, bed and alarms, visiting hours, pain management, procedures, bathroom and other care routines, personal items, smoking policy, room service/diet, and visiting hours. Information on how to activate the Rapid Response Team has been discussed. Patient/Family are encouraged to report perceived risks to care and to ask questions if they do not understand what they are told or what they should do.
--- NOTE | 2020-09-01 16:18 | WPDGICN ---
Assessment and Plan Assessment and plan (1) GI bleed: Qualifiers: GI bleed type/associated pathology: unspecified gastrointestinal hemorrhage type Qualified Code(s): K92.2 - Gastrointestinal hemorrhage, unspecified Code(s): K92.2 - Gastrointestinal hemorrhage, unspecified Status: Acute Assessment and Plan: she has melena again, admitted to hospital and will proceed with egd tomorrow, had AVM in the past but also cirrhosis (need to assess for other etiologies of bleeding) on ppi bid will do a colonoscopy to assess if avm in colon, she is due to have a colonoscopy anyway and had diverticulosis in the past (2) Melena: Code(s): K92.1 - Melena Status: Acute Assessment and Plan: egd in am ppi bid (3) Acute blood loss anemia: Code(s): D62 - Acute posthemorrhagic anemia Status: Acute Assessment and Plan: trend hb and transfuse if <7 (4) Cirrhosis: Code(s): K74.60 - Unspecified cirrhosis of liver Status: Acute Assessment and Plan: work up in the past negative (only mild elevated marika titer), ? MEZA will need liver imaging every 6 months for hcc surveillance (can follow up in office) (5) COPD (chronic obstructive pulmonary disease): Code(s): J44.9 - Chronic obstructive pulmonary disease, unspecified Status: Chronic Assessment and Plan: she is wheezing and still smoking breathing rx as needed, quit smoking (6) AVM (arteriovenous malformation) of stomach, acquired: Code(s): K31.819 - Angiodysplasia of stomach and duodenum without bleeding Status: Acute Assessment and Plan: reassess with egd (7) Colon, diverticulosis: Code(s): K57.30 - Diverticulosis of large intestine without perforation or abscess without bleeding Status: Acute GI Consult Note Consult date/time: 09/01/20 16:18 Reason for consult: melena HPI: Nisha Lu is a 69 year old female with history of gastric ulcer in January 2015- found to have a 2 cm antral ulcer, repeat EGD later 2014 confirmed healing of the gastric antral ulcer. She also had a previous colonoscopy in April 2016, revealing extensive diverticular disease. She was admitted in 2018 with anemia, EGD showed AVM's in stomach treated with APC. She also has cirrhosis based on CT imaging, diastolic heart failure, COPD, Afib but not longer on anticoagulation. I met her when she was admitted to hospital 02/2020 with anemia, EGD with gastric AVM treated with APC. She is here again with dark stools, she remembers few days ago took nyquil for cough. Hb showed worsening anemia with hb 7.4 (few months ago 11). Denies abdominal pain. Review of Systems Constitutional: Constitutional: Denies chills Eyes: Eyes: Denies blurry vision ENT: Reports system reviewed and no additional complaints, except as documented Cardiovascular: Cardiovascular: Denies chest pain Respiratory: Respiratory: Reports cough and Reports wheezing Comments: smoker Gastrointestinal: Gastrointestinal: Denies abdominal pain and Reports melena Genitourinary: Genitourinary: Denies hematuria Musculoskeletal: Musculoskeletal: Reports no additional musculoskeletal complaints Integumentary/Breasts: Skin/Breast: Denies dry skin Neurologic: Denies headache(s) Psychiatric: Psychiatric: Denies behavioral changes [facility] Past Medical History Medical History Acute renal insufficiency Chronic renal failure Anemia Aortic valve stenosis Atrial fibrillation Paroxysmal AVM (arteriovenous malformation) of stomach, acquired Basal cell carcinoma Cirrhosis noted by CT scan in 2018 with portal venous hypertension COPD (chronic obstructive pulmonary disease) Diastolic congestive heart failure Encounter for removal of skin lesion H/O: GI bleed 2018 History of obstructive sleep apnea Intolerant of the CPAP Hypercholesterolemia Hyperlipidemia Hypertensiv
[2020-09-01] MEDS: SODIUM CHLORIDE 0.9% IV 1,000 ML 125 ML IV CONT (16:38)
[2020-09-01] MEDS: BISACODYL 5 MG TABLET EC 20 MG PO (17:53)
[2020-09-01] MEDS: polyethylene glycoL 3350 238 GM BOTTLE PO (17:53)
--- NOTE | 2020-09-01 19:02 | ECG_ITS ---
Measurements Intervals [place] Rate: 72 P: CO: 0 QRS: 16 QRSD: 109 T: 48 QT: 424 QTc: 464 Interpretive Statements ATRIAL FIBRILLATION DELAYED PRECORDIAL R/S TRANSITION BASELINE ARTIFACT- I, II, III, AVR, AVL, AVF, V1-V6 ABNORMAL ECG Electronically Signed On 09-02-2020 6:38:14 CDT by Bladimir Stein D.O.
[2020-09-01 19:06] LABS: Hemoglobin 7.8 g/dL (12.0-15.0)
[2020-09-01 19:31] LABS: Troponin I < 0.012 ng/mL (0.000-0.034)
[2020-09-01] MEDS: traMADol HCL (*CRX) 25 MG TABLET PO (23:24)
[2020-09-02] VITALS (17 sets, daily range): BP systolic 131–163; BP diastolic 40–85; PULSE 61–84; RESP 18–33; TEMP 36.2–37.2; O2SAT 91–100
[2020-09-02 00:46] LABS: Hematocrit 23.2 % (37.0-47.0); Hemoglobin 7.1 g/dL (12.0-15.0)
[2020-09-02] MEDS: SODIUM CHLORIDE 0.9% IV 1,000 ML 125 ML IV CONT ×2 (03:42→11:44)
[2020-09-02] MEDS: MAGNESIUM CITRATE 300 ML BTL PO (05:39)
[2020-09-02 06:23] LABS: Hematocrit 24.2 % (37.0-47.0); Hemoglobin 7.3 g/dL (12.0-15.0)
[2020-09-02 07:38] LABS: Anion Gap 8 mmol/L (8-16); Blood Urea Nitrogen 21 mg/dL (7-17); Calcium 8.7 mg/dL (8.4-10.2); Carbon Dioxide 26 mmol/L (22-30); Chloride 103 mmol/L (98-107); Estimated CRCL calculation 42 ml/min; Estimated Glomerular Filt Rate 45; Glucose 151 mg/dL (65-105); Potassium 3.6 mmol/L (3.4-5.0); Sodium 137 mmol/L (137-145)
[2020-09-02 07:39] LABS: Magnesium 1.8 mg/dL (1.6-2.3)
[2020-09-02] MEDS: PANTOPRAZOLE SODIUM IV 40 MG VIAL IV PUSH (08:25)
[2020-09-02] MEDS: METOPROLOL TARTRATE 25 MG TABLET PO ×2 (09:30→20:44)
[2020-09-02 13:25] LABS: Glucose Point of Care 157 (65-105)
[2020-09-02] MEDS: LACTATED RINGERS 1,000 ML 150 ML IV CONT (13:38)
--- NOTE | 2020-09-02 13:42 | WPDANESEPPF ---
Anes - Initial Pre Proc Eval Procedure: Operation Date: 09/02/20 14:15 Proposed Procedures p Esophagogastroduodenoscopy & Colonoscopy - Gabriele Tavares MD Date/Time: 09/02/20 13:42 Surgeon: Rodolfo Tapia PA-C Pre Op Diagnosis: GI bleeding, anemia Patient Data Age: 69 Gender: F Height: 5 ft 5 in Weight: 81.6 kg Last Vital Signs Temp 97.7 F 09/02/20 13:34 Pulse 61 09/02/20 13:34 Resp 19 09/02/20 13:34 BP 143/46 H 09/02/20 13:34 Pulse Ox 94 09/02/20 13:34 Allergies Allergy/AdvReac Type Severity Reaction Status Date / Time codeine Allergy Intermediate Hives Verified 09/02/20 13:27 meperidine Allergy Intermediate Hives Verified 09/02/20 13:27 propoxyphene Allergy Intermediate Hives Verified 09/02/20 13:27 hydromorphone AdvReac Intermediate Hives Verified 09/02/20 13:27 KETCHUP Allergy Severe Hives, Uncoded 09/02/20 13:27 swelling Home Medications Medication Instructions Recorded Confirmed Type albuterol sulfate 90 mcg/actuation 2 puff INHALATION Q4-6H PRN gm 04/25/19 09/02/20 History aerosol inhaler amlodipine 5 mg tablet 5 mg PO DAILY 04/25/19 09/02/20 History aspirin 325 mg tablet 325 mg PO DAILY 04/25/19 09/02/20 History bumetanide 2 mg tablet 2 mg PO DAILY 04/25/19 09/02/20 History ferrous sulfate 325 mg (65 mg 325 mg PO DAILY 04/25/19 09/02/20 History iron) tablet,delayed release magnesium oxide 400 mg (241.3 mg 400 mg PO DAILY 04/25/19 09/02/20 History magnesium) tablet pravastatin 40 mg tablet 40 mg PO DAILY 04/25/19 09/02/20 History blood sugar diagnostic #100 each 04/30/19 09/02/20 Rx blood-glucose meter #1 each 04/30/19 09/02/20 Rx potassium chloride 10 mEq 10 meq PO DAILY #90 tablet 04/05/20 09/02/20 Rx tablet,extended release sucralfate 1 gram tablet 1 g PO QID #120 tablet 04/12/20 09/02/20 Rx spironolactone 25 mg tablet 25 mg PO DAILY #30 tablet 04/19/20 09/02/20 Rx metoprolol tartrate 25 mg tablet 25 mg PO BID #60 tablet 05/18/20 09/02/20 Rx pantoprazole 40 mg tablet,delayed 40 mg PO QAM #90 tablet 05/23/20 09/02/20 Rx release Laboratory Tests 09/01/20 09/01/20 09/02/20 18:48 18:53 00:27 Hgb 7.8 g/dL L g/dL 7.1 g/dL L g/dL (12.0-15.0) (12.0-15.0) Hct 26.0 % L % 23.2 % L % (37.0-47.0) (37.0-47.0) Sodium Potassium Chloride Carbon Dioxide Anion Gap BUN Creatinine Estim Creat Clear Calc Estimated GFR Glucose POC Capillary Glucose Calcium Magnesium Troponin I < 0.012 ng/mL ng/mL (0.000-0.034) 09/02/20 09/02/20 09/02/20 06:15 06:15 06:15 Hgb 7.3 g/dL L g/dL (12.0-15.0) Hct 24.2 % L % (37.0-47.0) Sodium 137 mmol/L mmol/L (137-145) Potassium 3.6 mmol/L mmol/L (3.4-5.0) Chloride 103 mmol/L mmol/L (98-107) Carbon Dioxide 26 mmol/L mmol/L (22-30) Anion Gap 8 mmol/L mmol/L (8-16) BUN 21 mg/dL H D mg/dL (7-17) Creatinine 1.20 mg/dL H mg/dL (0.7-1.0) Estim Creat Clear Calc 42 ml/min ml/min Estimated GFR 45 L (59 - ) Glucose 151 mg/dL H mg/dL (65-105) POC Capillary Glucose Calcium 8.7 mg/dL mg/dL (8.4-10.2) Magnesium 1.8 mg/dL mg/dL (1.6-2.3) Troponin I 09/02/20 13:22 Hgb Hct Sodium Potassium Chloride Carbon Dioxide Anion Gap BUN Creatinine Estim Creat Clear Calc Estimated GFR Glucose POC Capillary Glucose 157 mg/dl H mg/dl (65-105) Calcium Magnesium Troponin I Patient hx anesthesia problems: none Family hx anesthesia problems: none PMFSH Past Medical History Medical History (Updated 09/01/20 @ 16:31 by Gabriele Tavares MD) Acute
[2020-09-02] MEDS: BENZOCAINE (*SP) 60 ML SPRAY CAN (HURRICAINE) 1 SPRAY MUCOUS MEM (14:35)
[2020-09-02] MEDS: MAGNESIUM OXIDE 400 MG TABLET PO (16:18)
[2020-09-02] MEDS: BUMETANIDE 1 MG TABLET 2 MG PO (16:18)
[2020-09-02] MEDS: POTASSIUM CHLORIDE 10 MEQ TABLET.ER PO (16:18)
[2020-09-02] MEDS: SPIRONOLACTONE 25 MG TABLET PO (16:18)
[2020-09-02] MEDS: SUCRALFATE 1 GM TABLET PO ×2 (16:20→20:44)
[2020-09-02] MEDS: amLODIPine BESYLATE 5 MG TABLET PO (16:20)
--- NOTE | 2020-09-02 16:43 | PM.IMPN ---
Progress Note: A&P Assessment and Plan (1) GI bleed: Qualifiers: GI bleed type/associated pathology: unspecified gastrointestinal hemorrhage type Qualified Code(s): K92.2 - Gastrointestinal hemorrhage, unspecified Code(s): K92.2 - Gastrointestinal hemorrhage, unspecified Status: Acute Assessment and Plan: EGD/colonoscopy today per Dr. Linares. [place] to be related to AVM which did not appear to be actively bleeding. H&H relatively stable. Aspirin has been held. Continue BID PPI Monitor H&H tomorrow ASA held; anticipate will hold for 1 week Monitor overnight; hopefully d/c tomorrow if H&H stable (2) AVM (arteriovenous malformation) of stomach, acquired: Code(s): K31.819 - Angiodysplasia of stomach and duodenum without bleeding Status: Acute Assessment and Plan: Please see above a/p. Further recommendations per GI (3) Hyperlipidemia: Code(s): E78.5 - Hyperlipidemia, unspecified Status: Chronic Assessment and Plan: continue home meds (4) Diastolic congestive heart failure: Qualifiers: Heart failure chronicity: chronic Qualified Code(s): I50.32 - Chronic diastolic (congestive) heart failure Code(s): I50.30 - Unspecified diastolic (congestive) heart failure Status: Chronic Assessment and Plan: Appears to be compensated Continue home meds (5) COPD (chronic obstructive pulmonary disease): Code(s): J44.9 - Chronic obstructive pulmonary disease, unspecified Status: Chronic Assessment and Plan: A bit wheezy on exam today. Would benefit from neb treatment DuoNebs now and then Q6hr prn Continue with home medication. (6) Hypertensive heart disease: Qualifiers: Heart failure presence: without heart failure Qualified Code(s): I11.9 - Hypertensive heart disease without heart failure Code(s): I11.9 - Hypertensive heart disease without heart failure Status: Chronic Assessment and Plan: BP 140s sys Continue with home medications (7) Atrial fibrillation: Qualifiers: Atrial fibrillation type: persistent (not longstanding) Qualified Code(s): I48.19 - Other persistent atrial fibrillation Code(s): I48.91 - Unspecified atrial fibrillation Status: Chronic Assessment and Plan: Takes ASA 325 mg daily as she is not on a/c due to previous GI bleed. Rate controlled Hold aspirin Continue home metoprolol Subjective Date/time seen: 09/02/20 16:43 Interval history: Patient is a 69 yo F with history of gastric ulcer 01/2015 (repeat EGD confirmed healing), GI bleed due to AVM 02/2020, COPD, Cirrhosis based on CT imaging, a fib (not on a/c due to previous GI bleed; takes full dose aspirin), diastolic CHF, among other comorbid conditions who is seen in follow up for anemia likely secondary to GI bleed likely from AVM. Patient states she feels okay currently; a bit dizzy when walking to bathroom, but she feels this is from being NPO. She thinks her BMs do not appear as dark/black. She is a bit SOB but relates this to her COPD. No other complaints. Denies f/c/s, cp/palpitations, cough, n/v/d/c, abd pain, dysuria, hematuria, cloudy urine, calf pain/swelling. Review of Systems Review of Systems: All systems reviewed & are unremarkable except as noted in HPI and below Exam Narrative: Exam Narrative: General: Patient resting supine in bed in no acute distress. HEENT: Normocephalic, EOMI, oral mucosa moist. Cardiovascular: Rate and rhythm are regular. systolic murmur appreciated Respiratory: Mild scattered rhonchi/wheezing. Non-labored breathing. speaks in full sentences. On RA at time of visit [place]
[2020-09-02 16:45] LABS: Hematocrit 24.2 % (37.0-47.0); Hemoglobin 7.2 g/dL (12.0-15.0)
[2020-09-02 17:04] LABS: Iron 20 ug/dL (37-170)
[2020-09-02 17:14] LABS: Percent Iron Saturation 5 % (20-50)
[2020-09-02] MEDS: ALBUTEROL SULFATE NEB 2.5 MG/0.5 ML INH INHALATION (17:53)
[2020-09-02] MEDS: IPRATROPIUM BR 0.02% INH SOLN 0.5 MG/2.5 ML VIAL INHALATION (17:53)
[2020-09-02] MEDS: MELATONIN 3 MG TABLET PO (21:40)
[2020-09-02] MEDS: ACETAMINOPHEN 325 MG TABLET 650 MG PO (21:40)
[2020-09-03] VITALS (14 sets, daily range): BP systolic 119–145; BP diastolic 35–47; PULSE 49–671; RESP 16–18; TEMP 36.6–37.3; O2SAT 91–98
[2020-09-03] MEDS: SUCRALFATE 1 GM TABLET PO ×2 (06:25→11:55)
[2020-09-03 06:28] LABS: Hematocrit 22.4 % (37.0-47.0); Mean Corpuscular HGB Conc 29.5 g/dl (32-36); Mean Corpuscular Hemoglobin 22.9 pg (26-34); Mean Corpuscular Volume 77.8 fl (80-100); Mean Platelet Volume 10.2 fl (7.4-10.4); Platelet Count Result 173 k/mm3 (150-375); Red Blood Count 2.88 M/mm3 (4.2-5.4); Red Cell Distribution Width 18.4 % (11.5-14.5); White Blood Count 7.4 K/mm3 (4.5-10.0)
[2020-09-03 06:30] LABS: Hemoglobin 6.6 g/dL (12.0-15.0)
[2020-09-03 06:37] LABS: INR 1.1; Prothrombin Time 14.4 Seconds (11.1-14.7)
[2020-09-03 06:44] LABS: Potassium 3.3 mmol/L (3.4-5.0)
[2020-09-03 06:49] LABS: Anion Gap 5 mmol/L (8-16); Blood Urea Nitrogen 16 mg/dL (7-17); Calcium 8.6 mg/dL (8.4-10.2); Carbon Dioxide 29 mmol/L (22-30); Chloride 103 mmol/L (98-107); Estimated CRCL calculation 42 ml/min; Estimated Glomerular Filt Rate 45; Glucose 133 mg/dL (65-105); Magnesium 1.9 mg/dL (1.6-2.3); Sodium 137 mmol/L (137-145)
--- NOTE | 2020-09-03 08:25 | WPDANESPN ---
Anes - Prog Note Post-Op Date/Time: 09/03/20 08:25 Cardiovascular status: normal Respiratory status: normal Airway patency: baseline Mental status: baseline Post-Op hydration status: normal Vital Signs: Last Vital Signs Temp 37.0 C 09/03/20 05:35 Pulse 61 09/03/20 05:35 Resp 18 09/03/20 05:35 BP 119/36 L 09/03/20 05:35 Pulse Ox 91 09/03/20 05:35 Pain Score (VAS): 0/10. Patient resting in bed at time of assessment, appears comfortable. I/O: Intake & Output 09/02/20 09/03/20 09/03/20 23:59 07:59 15:59 Intake Total 790 250 Output Total 600 400 Balance 190 -150 Laboratory Tests 09/03/20 05:46 09/03/20 05:46 09/01/20 09/02/20 09/02/20 11:41 13:22 16:32 WBC RBC Hgb 7.2 L Hct 24.2 L MCV MCH MCHC RDW Plt Count MPV PT INR Sodium Potassium Chloride Carbon Dioxide Anion Gap BUN Creatinine Estim Creat Clear Calc Estimated GFR Glucose POC Capillary Glucose 157 H Calcium Magnesium Iron TIBC % Saturation Ferritin Blood Type O Negative Antibody Screen Negative Crossmatch See Detail 09/02/20 09/03/20 09/03/20 16:32 05:46 05:46 WBC 7.4 RBC 2.88 L Hgb 6.6 L* Hct 22.4 L MCV 77.8 L MCH 22.9 L MCHC 29.5 L RDW 18.4 H Plt Count 173 MPV 10.2 PT 14.4 INR 1.1 Sodium Potassium Chloride Carbon Dioxide Anion Gap BUN Creatinine Estim Creat Clear Calc Estimated GFR Glucose POC Capillary Glucose Calcium Magnesium Iron 20 L TIBC 434 % Saturation 5 L Ferritin 8.00 L Blood Type Antibody Screen Crossmatch 09/03/20 05:46 WBC RBC Hgb Hct MCV MCH MCHC RDW Plt Count MPV PT INR Sodium 137 Potassium 3.3 L Chloride 103 Carbon Dioxide 29 Anion Gap 5 L BUN 16 Creatinine 1.20 H Estim Creat Clear Calc 42 Estimated GFR 45 L Glucose 133 H POC Capillary Glucose Calcium 8.6 Magnesium 1.9 Iron TIBC % Saturation Ferritin Blood Type Antibody Screen Crossmatch Post-procedural complaints: none Patient Feedback: Patient satisfied with anesthetic care.
[2020-09-03] MEDS: PRAVASTATIN SODIUM 20 MG TABLET 40 MG PO (08:34)
[2020-09-03] MEDS: FERROUS SULFATE 324 MG TABLET PO (08:34)
[2020-09-03] MEDS: MAGNESIUM OXIDE 400 MG TABLET PO (08:35)
[2020-09-03] MEDS: SPIRONOLACTONE 25 MG TABLET PO (08:35)
[2020-09-03] MEDS: BUMETANIDE 1 MG TABLET 2 MG PO (08:35)
[2020-09-03] MEDS: POTASSIUM CHLORIDE 10 MEQ TABLET.ER PO (08:35)
[2020-09-03] MEDS: SODIUM CHLORIDE 0.9% IV 250 ML 30 ML IV CONT (08:50)
--- NOTE | 2020-09-03 08:54 | PM.DS ---
DS: Admitting Diagnosis Admitting Diagnosis Admitting Diagnosis: GI bleed, acute blood loss anemia DS: Discharge Diagnosis Discharge Diagnosis (1) GI bleed: Qualifiers: GI bleed type/associated pathology: unspecified gastrointestinal hemorrhage type Qualified Code(s): K92.2 - Gastrointestinal hemorrhage, unspecified Code(s): K92.2 - Gastrointestinal hemorrhage, unspecified Status: Acute Assessment and Plan: EGD/colonoscopy 09/[address] Linares. [place] to be related to small AVM x2 in body of stomach which did not appear to be actively bleeding; treated with APC. Hgb 6.6 this morning; 1 u pRBC transfused today; repeat Hgb 8.0. Patient denies any further bleeding; feels much better today; eager to be discharged. Aspirin has been held. Okay to discharge per GI. Continue daily PPI Received 1 u pRBC 09/03 Hgb 8.0 ASA held; anticipate will hold for 1 week Discharge today with labs on 09/05 and f/u with PCP on 09/08 and f/u with Dr. Vijay Kahn (2) Acute blood loss anemia: Code(s): D62 - Acute posthemorrhagic anemia Status: Acute Assessment and Plan: 07/12 above. No longer showing s/sx of bleeding. Iron studies suggest KYLE as well. Received 300 mg IV venofer x 2 during stay Will increase dosing of iron supplementation to 325 mg BIDWM f/u with PCP Please see above a/p. (3) AVM (arteriovenous malformation) of stomach, acquired: Code(s): K31.819 - Angiodysplasia of stomach and duodenum without bleeding Status: Acute Assessment and Plan: Please see above a/p. Further recommendations per GI (4) Hyperlipidemia: Code(s): E78.5 - Hyperlipidemia, unspecified Status: Chronic Assessment and Plan: continue home meds (5) Diastolic congestive heart failure: Qualifiers: Heart failure chronicity: chronic Qualified Code(s): I50.32 - Chronic diastolic (congestive) heart failure Code(s): I50.30 - Unspecified diastolic (congestive) heart failure Status: Chronic Assessment and Plan: Appears to be compensated Continue home meds (6) COPD (chronic obstructive pulmonary disease): Code(s): J44.9 - Chronic obstructive pulmonary disease, unspecified Status: Chronic Assessment and Plan: Improved exam today, but still slightly wheezy. Feels much better. DuoNeb treatment today prior to discharge Continue with home medication. (7) Hypertensive heart disease: Qualifiers: Heart failure presence: without heart failure Qualified Code(s): I11.9 - Hypertensive heart disease without heart failure Code(s): I11.9 - Hypertensive heart disease without heart failure Status: Chronic Assessment and Plan: BP 140s sys Continue with home medications (8) Atrial fibrillation: Qualifiers: Atrial fibrillation type: persistent (not longstanding) Qualified Code(s): I48.19 - Other persistent atrial fibrillation Code(s): I48.91 - Unspecified atrial fibrillation Status: Chronic Assessment and Plan: Takes ASA 325 mg daily as she is not on a/c due to previous GI bleed. Rate controlled Hold aspirin x 1 week Continue home metoprolol DS: Summary Hospital Course Reason for hospitalization: GI bleed, acute blood loss anemia Hospital Course: Date of arrival: 09/01/20 Date of discharge: 09/03/20 Patient is a 69 yo F with history of gastric ulcer 01/2015 (repeat EGD confirmed healing), GI bleed due to AVM 02/2020, COPD, Cirrhosis based on CT imaging, a fib (not on a/c due to previous GI bleed; takes full dose aspirin), diastolic CHF, among other comorbid conditions who presented
[2020-09-03] MEDS: ACETAMINOPHEN 325 MG TABLET 650 MG PO (09:20)
[2020-09-03] MEDS: POTASSIUM CHLORIDE 20 MEQ PACKET (FOR LIQUID) PO (11:34)
[2020-09-03] MEDS: METOPROLOL TARTRATE 25 MG TABLET PO (11:49)
[2020-09-03] MEDS: PANTOPRAZOLE 40 MG TABLET PO (11:55)
--- NOTE | 2020-09-03 12:10 | WPDGIPROGNO ---
Progress Note: A&P Assessment and Plan (1) AVM (arteriovenous malformation) of stomach, acquired: Code(s): K31.819 - Angiodysplasia of stomach and duodenum without bleeding Status: Acute Assessment and Plan: treated yesterday with apc again no more melena, still low hb getting iv iron infusion and then she is going home, will need to monitor cbc as outpatient and if more anemic then we can perform another EGD (known history of gastric avm's) (2) Acute blood loss anemia: Code(s): D62 - Acute posthemorrhagic anemia Status: Acute Assessment and Plan: from egd findings most likely colonoscopy negative for bleeding had polyps, next colonoscopy in 5 years (3) GI bleed: Qualifiers: GI bleed type/associated pathology: unspecified gastrointestinal hemorrhage type Qualified Code(s): K92.2 - Gastrointestinal hemorrhage, unspecified Code(s): K92.2 - Gastrointestinal hemorrhage, unspecified Status: Acute (4) Colon, diverticulosis: Code(s): K57.30 - Diverticulosis of large intestine without perforation or abscess without bleeding Status: Acute (5) Pulmonary hypertension: Code(s): I27.20 - Pulmonary hypertension, unspecified Status: Chronic (6) COPD (chronic obstructive pulmonary disease): Code(s): J44.9 - Chronic obstructive pulmonary disease, unspecified Status: Chronic (7) Cirrhosis: Code(s): K74.60 - Unspecified cirrhosis of liver Status: Acute Assessment and Plan: she can also follow up in office Subjective Date/time seen: 09/03/20 12:10 Interval history: no new complaints, tolerating diet and she is getting iv iron infusion Review of Systems Review of Systems: All systems reviewed & are unremarkable except as noted in HPI and below Exam Const: General: comfortable and no acute distress HENMT: General nose exam: Normal nares present Eyes: General: appearance normal, both eyes and all related structures Neck: Neck: supple Resp: Auscultation: no crackles and wheezes Cardio: Rhythm: abnormal rhythm irregularly irregular GI: Inspection: non-distended GI Palp: Yes Soft to palpation, No Firmness to palpation present (GI) and No Tenderness to palpation present (GI) Auscultation: normal bowel sounds Skin: General skin exam: normal color Neuro: Speech: normal speech Motor exam (neuro): Normal motor muscle tone present throughout Extrem: General: no edema Psych: Mental Status: mental status grossly normal Objective Data Vital Signs Vital Signs: Vital Signs - 24 hr 09/02/20 13:34 09/02/20 15:17 09/02/20 15:27 Temperature 97.7 F Pulse Rate 61 78 76 Respiratory Rate 19 33 H 27 H Blood Pressure 143/46 H 136/85 149/46 H Pulse Oximetry 94 100 96 09/02/20 15:37 09/02/20 15:45 09/02/20 16:00 Temperature 98.6 F Pulse Rate 67 68 67 Respiratory Rate 27 H 18 Blood Pressure 140/40 L 142/56 H Pulse Oximetry 93 91 09/02/20 17:55 09/02/20 20:00 09/02/20 22:00 Temperature 98.9 F Pulse Rate 75 70 70 Respiratory Rate 18 18 18 Blood Pressure 131/48 L Pulse Oximetry 92 92 09/03/20 00:00 09/03/20 04:00 09/03/20 05:35 Temperature 98.6 F Pulse Rate 70 49 L 61 Respiratory Rate 18 Blood Pressure 119/36 L Pulse Oximetry 91 09/03/20 08:52 09/03/20 09:07 09/03/20 09:20 Temperature 98.7 F 99.2 F 99.2 F Pulse Rate 68 63 Respiratory Rate 16 16 Blood Pressure 142/35 H 130/36 L Pulse Oximetry 96 92 09/03/20 09:22 09/03/20 10:08 09/03/20 10:20 Temperature 99 F 98.8 F Pulse Rate 61 Respiratory Rate 16 Blood Pressure 145/47 H Pulse Oximetry 98 95 09/03/20 11:08 09/03/20 11:25 09/03/20 11:49 Temperature 98.1 F 97.8 F Pulse Rate 69 65 671 H Respiratory Rate 16 16 Blood Pressure 140/40 L 127/41 L Pulse Oximetry 92 Intake/Output Intake/Output: Intake & Output 08/31/20 09/01/20 09/02/20 09/03/20 23:59 23:59 23:59 23:59 Intake Total
[2020-09-03 13:22] LABS: Hematocrit 26.7 % (37.0-47.0)
== END 2020-09-03 13:55 | disposition home or self-care (01) | DRG 378 ==
LOC: ANHED 12:49 → ANH3MEDSUR 16:07
PROVIDERS: Emergency Medicine; Internal Medicine Gastroenterology; Nurse Practitioner; Admitting Provider Internal Medicine; Emergency Provider Emergency Medicine; PCP Internal Medicine; Visit Provider Physician Assistant
PROC: 0DJ08ZZ Inspection of Upper Intestinal Tract, Via Natural or Artificial Opening Endoscopic (ICD-10-PCS; CPT 43235; principal; 2020-09-02 14:15)
DX: K31.811 Angiodysplasia of stomach and duodenum with bleeding (principal); I50.32 Chronic diastolic (congestive) heart failure; I48.19 Other persistent atrial fibrillation; I13.0 Hypertensive heart and chronic kidney disease with heart failure and stage 1 through stage 4 chronic kidney disease, or unspecified chronic kidney disease; D62 Acute posthemorrhagic anemia; I27.20 Pulmonary hypertension, unspecified; E11.22 Type 2 diabetes mellitus with diabetic chronic kidney disease; N18.9 Chronic kidney disease, unspecified; K63.5 Polyp of colon; K57.30 Diverticulosis of large intestine without perforation or abscess without bleeding; K64.8 Other hemorrhoids; K74.60 Unspecified cirrhosis of liver; E78.5 Hyperlipidemia, unspecified; I35.0 Nonrheumatic aortic (valve) stenosis; J44.9 Chronic obstructive pulmonary disease, unspecified; F17.210 Nicotine dependence, cigarettes, uncomplicated; G47.33 Obstructive sleep apnea (adult) (pediatric); Z79.82 Long term (current) use of aspirin; Z79.899 Other long term (current) drug therapy; Z87.11 Personal history of peptic ulcer disease
CPT/HCPCS: 36415; 36430; 80048; 80053; 82728; 82948; 83540; 83550; 83605; 83735; 84484; 85014; 85018; 85025; 85027; 85610; 85730; 86850; 86900; 86901; 86923; 88305; 93005; 94640; 96374; 99285; A9270; C9113; J0131; J1756; J2704; J7030; J7050; J7120; P9016

== ENCOUNTER 2020-09-06 09:57 | Observation (INO) | payer MEDICARE, SELFPAY ==
--- NOTE | ~2020-09-06 | US_ITS ---
EXAMINATION: US venous doppler UE EXAM DATE: 09/07/2020 14:26 INDICATION: Edema, erythema, firm mass in left. TECHNIQUE: Multiple grayscale, color flow, Doppler sonographic images of the left upper extremity vei ns obtained by technologist. Compression was performed where able. Comparison is made to prior exami nation from 06/23/2015. FINDINGS: Left upper extremity: Jugular vein: ------------> Normal. Subclavian vein: --------> Normal. Axillary vein:------------> Normal. Brachial vein:-----------> Normal. Basilic vein: ------------> Thrombosed. Cephalic vein: ----------> Thrombosed. Radial vein: ------------> Normal. Ulnar vein: > Normal. The cephalic venous thrombosis correlates to area of concern, firm mass in left antecubital fossa. IMPRESSION: 1. Positive for basilic and cephalic superficial venous thrombophlebitis. 2. No deep venous thrombosis of the left upper extremity. Reviewed, dictated and finalized at location A.
--- NOTE | ~2020-09-06 | CT_ITS ---
EXAMINATION: CT elbow LT w con DATE: 09/06/2020 12:10 INDICATION: Soft tissue cellulitis. Assess for abscess. TECHNIQUE: High resolution computed tomography (CT) of the left elbow was performed with 100 mL Omnip aque-350 intravenous contrast. Additional sagittal and coronal reconstructions were performed. Automa huong exposure control and iterative reconstruction technique were employed. The dose-length product wa s 508.57 mGy-cm. COMPARISON: None FINDINGS: Bone alignment is normal. No fracture. Normal joint space at the left elbow with no elbow joint effus ion. Stranding in the subcutaneous fat along the dorsal aspect of the proximal to mid left forearm co nsistent with given history of cellulitis. No discrete abscess. Visualized portion of the upper abdom en is unremarkable. Visualized portions of the lungs are clear. Atherosclerotic coronary artery calci fications. Aortic valve and mitral annular calcification. No pericardial effusion. IMPRESSION: 1. Stranding in the subcutaneous fat at the dorsal aspect of the proximal to mid left forearm consist ent with cellulitis without discrete abscess. Reviewed, dictated and finalized at location A. IMPRESSION: 1. Stranding in the subcutaneous fat at the dorsal aspect of the proximal to mi d left forearm consistent with cellulitis without discrete abscess.
[2020-09-06 10:03] VITALS: BP 149/67; PULSE 67; RESP 18; TEMP 36.4; O2SAT 100
[2020-09-06 11:38] LABS: Basophils Absolute Auto 0.1 K/mm3 (0.0-0.1); Basophils Percent Auto 0.5 % (0.2-1.2); Eosinophils Absolute Auto 0.3 K/mm3 (0-0.3); Eosinophils Percent Auto 2.8 % (0-4.4); Hematocrit 33.4 % (37.0-47.0); Immature Granulocyte Absolute 0.12 K/mm3 (0.00-0.031); Immature Granulocyte Percent A 1.1 % (0-0.5); Lymphocytes Absolute Auto 1.94 K/mm3 (0.9-3.2); Lymphocytes Percent Auto 17.1 % (18.3-44.2); Mean Corpuscular HGB Conc 29.9 g/dl (32-36); Mean Corpuscular Hemoglobin 23.8 pg (26-34); Mean Corpuscular Volume 79.3 fl (80-100); Mean Platelet Volume 10.1 fl (7.4-10.4); Monocytes Absolute Auto 1.4 K/mm3 (0.1-0.6); Monocytes Percent Auto 11.9 % (2.6-8.5); Neutrophils Absolute Auto 7.6 K/mm3 (1.3-6.7); Neutrophils Percent Auto 66.6 % (45.5-73.1); Nucleated Red Blood Cells Perc 0.2 % (0.0-0.2); Platelet Count Result 232 k/mm3 (150-375); Red Blood Count 4.21 M/mm3 (4.2-5.4); Red Cell Distribution Width 20.8 % (11.5-14.5); White Blood Count 11.4 K/mm3 (4.5-10.0)
[2020-09-06 11:50] LABS: Anion Gap 7 mmol/L (8-16); Blood Urea Nitrogen 21 mg/dL (7-17); Calcium 9.7 mg/dL (8.4-10.2); Carbon Dioxide 31 mmol/L (22-30); Chloride 99 mmol/L (98-107); Estimated CRCL calculation 44 ml/min; Estimated Glomerular Filt Rate 45; Glucose 118 mg/dL (65-105); Potassium 3.9 mmol/L (3.4-5.0); Sodium 137 mmol/L (137-145)
[2020-09-06 12:01] LABS: Platelet Estimate Adequate (Adequate)
[2020-09-06 12:02] LABS: Anisocytosis 2+ (NORMAL); Hypochromasia 1+ (NORMAL)
[2020-09-06 12:03] LABS: Ovalocytes 2+ (NORMAL); Stomatocytes 2+ (NORMAL)
--- NOTE | 2020-09-06 12:40 | ED.UPPEXIN ---
HPI - Extremity Injury (Upper) General Chief Complaint: Extremity Injury, Upper Stated Complaint: left arm swelling Time Seen by Provider: 09/06/20 10:30 Source: patient Mode of arrival: ambulatory Limitations: no limitations History of Present Illness HPI narrative: 69-year-old female She was hospitalized here a few days ago for GI bleeding issues and had a EGD and a colonoscopy She had an IV in her left arm and a couple days after going home but started to become red and painful and that is increased over the last day or 2 No fever, no numbness or weakness Related Data Home Medications Medication Instructions Recorded Confirmed albuterol sulfate 90 mcg/actuation 2 puff INHALATION Q4-6H PRN gm 04/25/19 09/02/20 aerosol inhaler amlodipine 5 mg tablet 5 mg PO DAILY 04/25/19 09/02/20 aspirin 325 mg tablet 325 mg PO DAILY 04/25/19 09/02/20 bumetanide 2 mg tablet 2 mg PO DAILY 04/25/19 09/02/20 magnesium oxide 400 mg (241.3 mg 400 mg PO DAILY 04/25/19 09/02/20 magnesium) tablet pravastatin 40 mg tablet 40 mg PO DAILY 04/25/19 09/02/20 Allergies Allergy/AdvReac Type Severity Reaction Status Date / Time codeine Allergy Intermediate Hives Verified 09/06/20 10:06 meperidine Allergy Intermediate Hives Verified 09/06/20 10:06 propoxyphene Allergy Intermediate Hives Verified 09/06/20 10:06 hydromorphone AdvReac Intermediate Hives Verified 09/06/20 10:06 KETCHUP Allergy Severe Hives, Uncoded 09/06/20 10:06 swelling Review of Systems Review of Systems: All systems reviewed & are unremarkable except as noted in HPI and below Constitutional: Constitutional: Denies chills, Denies fatigue, Denies fever(s), Denies headache(s) and Denies weakness Eyes: Eyes: Reports no additional eye complaints and Denies change in vision ENT: Denies headache(s), Denies epistaxis, Denies nasal congestion and Denies sore throat Cardiovascular: Cardiovascular: Denies chest pain, Denies leg edema, Denies palpitations and Denies dyspnea Respiratory: Respiratory: Denies cough and Denies dyspnea Gastrointestinal: Gastrointestinal: Denies diarrhea, Reports nausea and Denies vomiting Genitourinary: Genitourinary: Denies hematuria, Denies urinary frequency and Denies dysuria Musculoskeletal: Musculoskeletal: Denies deformity, Reports arthralgias, Reports joint swelling, Denies muscle weakness and Denies numbness Integumentary/Breasts: Skin/Breast: Reports erythema, Reports rash and Denies wounds Neurologic: Denies headache(s), Denies focal weakness, Denies numbness and Denies weakness Psychiatric: Psychiatric: Reports no additional psychiatric complaints Endocrine: Endocrine: Denies fatigue and Denies palpitations Hematologic/Lymphatic: Hematologic/Lymphatic: Denies easy bleeding and Denies easy bruising Allergic/Immunologic: Allergic/Immunologic: Denies wheezing PMFSH Past Medical History Medical History (Updated 09/06/20 @ 12:52 by Mohan Red MD) Acute blood loss anemia Acute renal insufficiency Chronic renal failure Anemia Aortic valve stenosis Atrial fibrillation Paroxysmal AVM (arteriovenous malformation) of stomach, acquired Basal cell carcinoma Cirrhosis noted by CT scan in 2018 with portal venous hypertension Colon, diverticulosis COPD (chronic obstructive pulmonary disease) Diastolic congestive heart failure Encounter for removal of skin lesion H/O: GI bleed 2018 History of obstructive sleep apnea Intolerant of the CPAP Hypercholesterolemia Hyperlipidemia Hypertensive heart disease Moderate aortic valve stenosis Paroxysmal atrial fibrillation Pulmonary hypertension Seizure Type 2 diabetes mellitus Surgical History Surgical History H/O arthroscopy of left knee H/O dilation and curettage H/O rectal polypectomy H/O shoulder surgery Bilateral pens that were later removed. H/O: hysterectomy History of [place] fundoplication History of tonsillecto
[2020-09-06 13:02] VITALS: BP 161/62; PULSE 70; RESP 18; O2SAT 97
--- NOTE | 2020-09-06 14:05 | PC.NURSE ---
Report given to LAUREN Alvarado.
[2020-09-06 14:19] VITALS: BP 161/62; PULSE 70; RESP 18
--- NOTE | 2020-09-06 14:50 | ADMGEN ---
This patient, Nisha Lu, was admitted to 3 [facility] Surg Room 319-01. Patient/family oriented to hospital policies and general routines including ID bracelet, bed and alarms, visiting hours, pain management, procedures, bathroom and other care routines, personal items, smoking policy, room service/diet, and visiting hours. Information on how to activate the Rapid Response Team has been discussed. Patient/Family are encouraged to report perceived risks to care and to ask questions if they do not understand what they are told or what they should do.
[2020-09-06] MEDS: LACTATED RINGERS 1,000 ML 125 ML IV CONT (15:07)
[2020-09-06] MEDS: HYDROcodone/acetaminophen (*CRX) 5-325 MG TABLET 1 TAB PO ×2 (15:28→20:55)
[2020-09-06 15:31] VITALS: BP 148/47; PULSE 71; RESP 18; TEMP 36.4; O2SAT 97; BMI 27.1
--- NOTE | 2020-09-06 19:42 | PM.IMHP ---
H&P: HPI History of Present Illness Date/Time: 09/06/20 19:42 this is a 69-year-old female patient who was recently discharged from this hospital on 09/03/2020. The patient was here with a GI bleed. She did receive a unit of packed red blood cells. Her aspirin is to be held for 1 week. The patient had to AVM treated with APC of the stomach and she had some colon polyps removed at that time. The patient stated that she felt that an IV had infiltrated her left forearm. The left antecubital area became painful and red in. This increased over the last [address] of that elbow shows that she has cellulitis. I did have Dr. choudhury look at that left arm to make sure that it was not fasciitis. Is felt that is possibly thrombophlebitis and needed a warm soak. The patient was started on vancomycin. 11.4. H&H 10.0 in 33.4 which has increased since her last admission. Her creatinine is 1.2 which is her baseline. The patient is being placed as inpatient admission on the date of service of 09/06/2020 Chief Complaint: Redness to left arm Review of Systems Review of Systems: All systems reviewed & are unremarkable except as noted in HPI and below Constitutional: Constitutional: Reports as per HPI and Reports no additional constitutional complaints Eyes: Eyes: Reports as per HPI and Reports no additional eye complaints ENT: Reports system reviewed and no additional complaints, except as documented and Reports Normal hearing present Cardiovascular: Cardiovascular: Reports no additional cardiovascular complaints Respiratory: Respiratory: Reports no additional respiratory complaints and Reports no additional respiratory complaints Gastrointestinal: Gastrointestinal: Reports as per HPI and Reports no additional gastrointestinal complaints Musculoskeletal: Musculoskeletal: Reports no additional musculoskeletal complaints Integumentary/Breasts: Skin/Breast: Reports system reviewed and no additional complaints, except as docu and Reports as per HPI Neurologic: Reports system reviewed and no additional complaints, except as documented, Reports as per HPI and Reports Normal hearing present Psychiatric: Psychiatric: Reports no additional psychiatric complaints and Reports as per HPI Endocrine: Endocrine: Reports no additional endocrine complaints Hematologic/Lymphatic: Hematologic/Lymphatic: Reports no additional hematologic/lymphatic complaints Allergic/Immunologic: Allergic/Immunologic: Reports no additional allergic/immunologic complaints PMFSH Past Medical History Medical History Acute blood loss anemia Acute renal insufficiency Chronic renal failure Anemia Aortic valve stenosis Atrial fibrillation Paroxysmal AVM (arteriovenous malformation) of stomach, acquired Basal cell carcinoma Cirrhosis noted by CT scan in 2018 with portal venous hypertension Colon, diverticulosis COPD (chronic obstructive pulmonary disease) Diastolic congestive heart failure Encounter for removal of skin lesion H/O: GI bleed 2018 History of obstructive sleep apnea Intolerant of the CPAP Hypercholesterolemia Hyperlipidemia Hypertensive heart disease Moderate aortic valve stenosis Paroxysmal atrial fibrillation Pulmonary hypertension Seizure Type 2 diabetes mellitus Surgical History Surgical History H/O arthroscopy of left knee H/O dilation and curettage H/O rectal polypectomy H/O shoulder surgery Bilateral pens that were later removed. H/O: hysterectomy History of Chelly fundoplication History of tonsillectomy Family History Family History Sibling Cerebrovascular accident, Onset Age: 60 Brother and sister Family history of renal failure Patient's sister is Patient's brother is Hypertension Brother Diabetes mellitus Brother and sis
[2020-09-06] MEDS: SUCRALFATE 1 GM TABLET PO (20:56)
[2020-09-06] MEDS: BUMETANIDE 1 MG TABLET 2 MG PO (20:56)
[2020-09-06] MEDS: METOPROLOL TARTRATE 25 MG TABLET PO (20:56)
[2020-09-06] MEDS: FERROUS SULFATE 324 MG TABLET PO (20:57)
[2020-09-06 22:00] VITALS: BP 128/64; PULSE 67; RESP 18; TEMP 36.3; O2SAT 97
[2020-09-06 22:48] LABS: Glucose Point of Care 140 (65-105)
[2020-09-07] VITALS (10 sets, daily range): BP systolic 123–145; BP diastolic 40–75; PULSE 65–82; RESP 17–20; TEMP 36.1–37.4; O2SAT 91–93
[2020-09-07] MEDS: HYDROcodone/acetaminophen (*CRX) 5-325 MG TABLET 1 TAB PO ×3 (01:06→06:36)
[2020-09-07 06:45] LABS: Basophils Absolute Auto 0.1 K/mm3 (0.0-0.1); Basophils Percent Auto 0.7 % (0.2-1.2); Eosinophils Absolute Auto 0.4 K/mm3 (0-0.3); Eosinophils Percent Auto 5.8 % (0-4.4); Hematocrit 30.3 % (37.0-47.0); Hemoglobin 9.2 g/dL (12.0-15.0); Immature Granulocyte Absolute 0.04 K/mm3 (0.00-0.031); Immature Granulocyte Percent A 0.5 % (0-0.5); Lymphocytes Absolute Auto 1.54 K/mm3 (0.9-3.2); Lymphocytes Percent Auto 20.8 % (18.3-44.2); Mean Corpuscular HGB Conc 30.4 g/dl (32-36); Mean Corpuscular Hemoglobin 24.4 pg (26-34); Mean Corpuscular Volume 80.4 fl (80-100); Mean Platelet Volume 10.1 fl (7.4-10.4); Monocytes Percent Auto 12.8 % (2.6-8.5); Neutrophils Absolute Auto 4.4 K/mm3 (1.3-6.7); Neutrophils Percent Auto 59.4 % (45.5-73.1); Platelet Count Result 194 k/mm3 (150-375); Red Blood Count 3.77 M/mm3 (4.2-5.4); White Blood Count 7.4 K/mm3 (4.5-10.0)
[2020-09-07 06:50] LABS: Lactic Acid Reflex 0.6 mmol/L (0.7-2.1)
[2020-09-07 06:52] LABS: Alanine Aminotransferase 18 U/L (4-35); Alkaline Phosphatase 74 U/L (38-126); Anion Gap 5 mmol/L (8-16); Aspartate Amino Transferase 23 U/L (14-36); Bilirubin,Total 0.9 mg/dL (0.2-1.3); Blood Urea Nitrogen 21 mg/dL (7-17); Calcium 8.8 mg/dL (8.4-10.2); Carbon Dioxide 32 mmol/L (22-30); Chloride 98 mmol/L (98-107); Estimated CRCL calculation 33 ml/min; Estimated Glomerular Filt Rate 37; Glucose 140 mg/dL (65-105); Lactate Dehydrogenase 315 U/L (313-618); Lipase 40 U/L (23-300); Magnesium 1.7 mg/dL (1.6-2.3); Sodium 135 mmol/L (137-145)
[2020-09-07] MEDS: SUCRALFATE 1 GM TABLET PO ×4 (06:57→20:35)
[2020-09-07] MEDS: PRAVASTATIN SODIUM 20 MG TABLET 40 MG PO (09:48)
[2020-09-07] MEDS: METOPROLOL TARTRATE 25 MG TABLET PO ×2 (09:48→20:35)
[2020-09-07] MEDS: SPIRONOLACTONE 25 MG TABLET PO (09:49)
[2020-09-07] MEDS: MAGNESIUM OXIDE 400 MG TABLET PO (09:49)
[2020-09-07] MEDS: BUMETANIDE 1 MG TABLET 2 MG PO ×2 (09:49→17:19)
[2020-09-07] MEDS: amLODIPine BESYLATE 5 MG TABLET PO (09:50)
[2020-09-07] MEDS: FERROUS SULFATE 324 MG TABLET PO ×2 (09:51→17:19)
[2020-09-07] MEDS: PANTOPRAZOLE 40 MG TABLET PO (09:55)
[2020-09-07] MEDS: POTASSIUM CHLORIDE 20 MEQ TABLET.ER PO ×2 (10:44→17:18)
[2020-09-07] MEDS: HYDROcodone/acetaminophen (*CRX) 10-325 MG TABLET 1 TAB PO ×2 (10:44→18:32)
[2020-09-07 11:31] LABS: Glucose Point of Care 180 (65-105)
--- NOTE | 2020-09-07 12:27 | PM.IMPN ---
Progress Note: A&P Assessment and Plan (1) Cellulitis of arm, left: Code(s): L03.114 - Cellulitis of left upper limb Status: Acute Assessment and Plan: She has an area edema warmth surrounding the left antecubital fossa. She was recently hospitalized from 09/01-09/03/20 and it is noted that she had an IV in the left AC during that stay that possibly infiltrated. She has a palpable, firm cord in the left AC. Thrombophlebitis is suspected. CT of the elbow showed subcutaneous fat stranding consistent with cellulitis without any evidence of discrete abscess formation. No leukocytosis. She is afebrile. Continue IV vancomycin at this time Obtain venous Doppler of left upper extremity Provide warm compresses Blood cultures pending. Analgesics available as needed for pain Monitor area closely for any evidence of progression (2) COPD (chronic obstructive pulmonary disease): Code(s): J44.9 - Chronic obstructive pulmonary disease, unspecified Status: Chronic Assessment and Plan: Diffuse wheezing noted on exam. She is maintaining adequate oxygen saturations on room air. No significant cough or dyspnea. Begin albuterol and ipratropium nebulizers q6h At this time, will hold on systemic corticosteroids and monitor clinically (3) Hypokalemia: Code(s): E87.6 - Hypokalemia Status: Acute Assessment and Plan: This appears to be chronic issue as she is on daily potassium supplements at home. Potassium decreased at 3.0 today. Initiate 20 mEq KCL PO BID. Cautious use in light of spironolactone therapy and renal insufficiency Monitor potassium daily (4) Anemia: Code(s): D64.9 - Anemia, unspecified Status: Acute Assessment and Plan: Blood loss anemia and underwent transfusion. Hemoglobin and hematocrit are improved from prior hospitalization. Iron studies at that time consistent with iron deficiency anemia. H&H remaining stable. Vital signs are stable. No evidence of ongoing blood loss. Trend H& H. Transfuse as needed with hemoglobin threshold <7.0 (5) AVM (arteriovenous malformation) of stomach, acquired: Code(s): K31.819 - Angiodysplasia of stomach and duodenum without bleeding Status: Acute Assessment and Plan: Noted on EGD on 09/02/2020. The area was cauterized and there did not seem to any ongoing bleeding. No evidence of blood loss at this time. Continue Protonix Continue Carafate Aspirin to be held for 1 week from 09/03/2020. This can be resumed on 09/10/2020 Follow-up with energy sales consultant Dr. Linares as an outpatient as previously scheduled (6) Atrial fibrillation: Qualifiers: Atrial fibrillation type: persistent (not longstanding) Qualified Code(s): I48.19 - Other persistent atrial fibrillation Code(s): I48.91 - Unspecified atrial fibrillation Status: Chronic Assessment and Plan: Rate is well controlled at this time. She is not on chronic anticoagulation due to history of GI bleeds. Continue metoprolol (7) Chronic kidney disease: Code(s): N18.9 - Chronic kidney disease, unspecified Status: Acute Assessment and Plan: Appears to be variable from 1.2-1.4. Creatinine is 1.4 today. Monitor renal function closely. Renally dose medications and avoid nephrotoxins. Cautious use with vancomycin. Monitor kidney function closely while continuing this medication. Subjective Date/time seen: 09/07/20 12:27 Interval history: Date of service: 09/07/2020 Nisha Lu is a 69 year old female with a history of anemia, renal insufficiency, aortic stenosis, atrial fibrillation not on anticoagulation, AVM of stomach, COPD, diastolic CHF, LENORA, and [id number] type 2 diabetes mellitus who is seen in follow-up for cellulitis of left antecubital fossa. She is having worsening pain in the left arm today. It feels heavy and she is having
--- NOTE | 2020-09-07 15:20 | PC.NURSE ---
On 09/07/20, the student, [Lauren Faustin ], provided care and completed [facility] documentation on this patient. I have reviewed the student's documentation and agree with the findings.
--- NOTE | 2020-09-07 15:21 | PC.NURSE ---
On 09/07/20, the student, [ Karuna Parekh], provided care and completed [facility] documentation on this patient. I have reviewed the student's documentation and agree with the findings.
[2020-09-07] MEDS: ALBUTEROL SULFATE NEB 2.5 MG/0.5 ML INH INHALATION ×2 (15:30→21:07)
[2020-09-07] MEDS: IPRATROPIUM BR 0.02% INH SOLN 0.5 MG/2.5 ML VIAL INHALATION ×2 (15:31→21:07)
[2020-09-07 17:48] LABS: Glucose Point of Care 172 (65-105)
[2020-09-08] MEDS: ONDANSETRON INJ 4 MG/2 ML VIAL IV PUSH (00:33)
[2020-09-08] MEDS: HYDROcodone/acetaminophen (*CRX) 10-325 MG TABLET 1 TAB PO ×2 (00:33→06:56)
[2020-09-08 00:38] LABS: Glucose Point of Care 159 (65-105)
[2020-09-08] MEDS: IPRATROPIUM BR 0.02% INH SOLN 0.5 MG/2.5 ML VIAL INHALATION ×2 (02:14→08:30)
[2020-09-08] MEDS: ALBUTEROL SULFATE NEB 2.5 MG/0.5 ML INH INHALATION ×2 (02:14→08:30)
[2020-09-08 02:16] VITALS: PULSE 71; RESP 18
[2020-09-08 02:26] VITALS: PULSE 74; RESP 18
[2020-09-08 06:00] VITALS: BP 147/54; PULSE 64; RESP 20; TEMP 36.8; O2SAT 94
[2020-09-08] MEDS: SUCRALFATE 1 GM TABLET PO (06:56)
--- NOTE | 2020-09-08 06:57 | PC.NURSE ---
All assessment and meds passed from 189909/07/2020 by LAUREN Alvarado were passed by Sadie Delong.
[2020-09-08 07:47] LABS: Hematocrit 31.6 % (37.0-47.0); Hemoglobin 9.4 g/dL (12.0-15.0)
[2020-09-08 08:00] LABS: Anion Gap 5 mmol/L (8-16); Blood Urea Nitrogen 24 mg/dL (7-17); Calcium 8.9 mg/dL (8.4-10.2); Carbon Dioxide 34 mmol/L (22-30); Chloride 96 mmol/L (98-107); Estimated CRCL calculation 33 ml/min; Estimated Glomerular Filt Rate 37; Glucose 139 mg/dL (65-105); Hemoglobin A1C 5.9 % (<5.7); Magnesium 1.8 mg/dL (1.6-2.3); Potassium 3.7 mmol/L (3.4-5.0); Sodium 135 mmol/L (137-145)
[2020-09-08] MEDS: FERROUS SULFATE 324 MG TABLET PO (08:09)
[2020-09-08 08:10] LABS: Glucose Point of Care 184 (65-105)
[2020-09-08] MEDS: POTASSIUM CHLORIDE 20 MEQ TABLET.ER PO (08:10)
[2020-09-08] MEDS: amLODIPine BESYLATE 5 MG TABLET PO (08:10)
[2020-09-08] MEDS: BUMETANIDE 1 MG TABLET 2 MG PO (08:11)
[2020-09-08 08:12] VITALS: PULSE 64
[2020-09-08] MEDS: PRAVASTATIN SODIUM 20 MG TABLET 40 MG PO (08:12)
[2020-09-08] MEDS: METOPROLOL TARTRATE 25 MG TABLET PO (08:12)
[2020-09-08] MEDS: PANTOPRAZOLE 40 MG TABLET PO (08:12)
[2020-09-08] MEDS: MAGNESIUM OXIDE 400 MG TABLET PO (08:12)
[2020-09-08] MEDS: SPIRONOLACTONE 25 MG TABLET PO (08:12)
[2020-09-08 08:32] VITALS: PULSE 71; RESP 16; O2SAT 90
--- NOTE | 2020-09-08 12:47 | PM.DS ---
DS: Admitting Diagnosis Admitting Diagnosis Admitting Diagnosis: Superficial venous thrombophlebitis DS: Discharge Diagnosis Discharge Diagnosis (1) Thrombophlebitis of superficial veins of upper extremities: Code(s): I80.8 - Phlebitis and thrombophlebitis of other sites Status: Acute Assessment and Plan: She was recently hospitalized from 09/01-09/03/20 and it is noted that she had an IV in the left AC during that stay that likely infiltrated. She had a palpable cord in the left antecubital fossa with surrounding erythema and warmth. Venous Doppler of upper extremity showed thrombosed basilic and cephalic veins without DVT. Supportive care including warm compresses provided. No anticoagulation required given low risk for thromboembolism and propensity for/history of bleeds. She should continue to apply warm compresses 4-5 times daily and will need to follow-up with her PCP for further monitoring. (2) Cellulitis of arm, left: Code(s): L03.114 - Cellulitis of left upper limb Status: Acute Assessment and Plan: As above. CT of the elbow showed subcutaneous fat stranding consistent with cellulitis without any evidence of discrete abscess formation. She did not have leukocytosis. She remained afebrile. She was treated with IV vancomycin and transition to p.o. Bactrim which she will continue for 7 days. Preliminary blood cultures negative to date and final cultures will be monitored. Cellulitis improved significantly during her stay. (3) COPD (chronic obstructive pulmonary disease): Code(s): J44.9 - Chronic obstructive pulmonary disease, unspecified Status: Chronic Assessment and Plan: She initially had wheezing noted on exam. She was maintaining adequate oxygen saturations on room air. No significant cough or dyspnea. Albuterol and ipratropium nebulizers initiated and she had prompt resolution of wheezing following. Systemic steroids not felt to be required. Continue with albuterol p.r.n.. She would benefit from outpatient referral for PFTs. (4) Hypokalemia: Code(s): E87.6 - Hypokalemia Status: Acute Assessment and Plan: This appears to be chronic issue as she is on daily potassium supplements at home. Potassium levels improved with supplementation. Continue daily potassium supplements. I did place orders to repeat BMP in 4 days to ensure potassium levels do not become elevated with initiation of Bactrim in combination with potassium supplements and spironolactone. Given her chronic low potassium, it is unlikely that she will have issues with hyperkalemia. (5) Anemia: Code(s): D64.9 - Anemia, unspecified Status: Acute Assessment and Plan: She was recently 09/01/2020-09/03/2020 and treated for blood loss anemia. She had a transfusion on 09/03/2020. Hemoglobin and hematocrit are improved from prior hospitalization. Iron studies at that time consistent with iron deficiency anemia. H&H remained stable. Vital signs stable and she had no evidence of ongoing blood loss. (6) AVM (arteriovenous malformation) of stomach, acquired: Code(s): K31.819 - Angiodysplasia of stomach and duodenum without bleeding Status: Acute Assessment and Plan: Noted on EGD on 09/02/2020. The area was cauterized and there did not seem to any ongoing bleeding. No evidence of blood loss during this hospital stay. Continue Protonix and Carafate. Aspirin to be held for 1 week from 09/03/2020. This can be resumed on 09/10/2020. Follow-up with peoplesoft analyst Dr. Linares as an outpatient as previously scheduled (7) Atrial fibrillation: Qualifiers: Atrial fibrillation type: persistent (not longstanding) Qualified Code(s): I48.19 - Other persistent atrial fibrillation Code(s): I48.91 - Unspecified atrial fibrillation Status: Chronic Assessment and Plan: Rate was well controlled. She is not on calibration laboratory technician
--- NOTE | 2020-09-08 13:05 | PC.NURSE ---
pt had 400 dollars in our safe was returned to pt counted and witnessed by myself and bob key
== END 2020-09-08 12:50 | disposition home or self-care (01) ==
LOC: ANHED 12:52 → ANH3MEDSUR 14:47
PROVIDERS: Nurse Practitioner; Physician Assistant; Admitting Provider Family Medicine; Emergency Provider Emergency Medicine; PCP Internal Medicine; Visit Provider Internal Medicine
DX: I80.8 Phlebitis and thrombophlebitis of other sites (principal); L03.114 Cellulitis of left upper limb; D64.9 Anemia, unspecified; E78.5 Hyperlipidemia, unspecified; E11.22 Type 2 diabetes mellitus with diabetic chronic kidney disease; E87.6 Hypokalemia; I50.32 Chronic diastolic (congestive) heart failure; F17.210 Nicotine dependence, cigarettes, uncomplicated; I48.91 Unspecified atrial fibrillation; J44.9 Chronic obstructive pulmonary disease, unspecified; N18.9 Chronic kidney disease, unspecified; R60.9 Edema, unspecified
CPT/HCPCS: 36415; 73201; 80048; 80053; 82948; 83036; 83605; 83615; 83690; 83735; 84443; 85014; 85018; 85025; 87040; 93971; 94640; 96365; 96366; 96367; 96375; 99285; A9270; G0378; J2405; J2543; J3370; J7120; Q9967

== ENCOUNTER 2022-09-11 12:40 | Inpatient (IN) | payer OTHER, SELFPAY ==
[2022-09-11] VITALS (13 sets, daily range): BP systolic 149–171; BP diastolic 49–82; PULSE 83–133; RESP 18–30; TEMP 36.4–37.4; O2SAT 94–100; BMI 25.7
--- NOTE | ~2022-09-11 | US_ITS ---
EXAMINATION: US abdomen complete DATE: 09/14/2022 12:20 INDICATION: Elevated liver enzymes TECHNIQUE: Multiple grayscale and Doppler ultrasound images of the abdomen were obtained. COMPARISON: None available FINDINGS: Bowel gas obscures visualization of the pancreas. The liver is normal with normal echogenic ity and echotexture. There is nodularity of the liver surface. Normal hepatopetal flow in the main po rtal vein. Stones are present in the nondistended gallbladder. There is mild gallbladder wall thicken ing. The common bile duct measures 8 mm which can be normal in size for patient age. There was no son ographic Carlton sign. The visualized portions of the aorta and inferior vena cava are normal. The spleen is normal in appearance and measures 8.2 cm. The right kidney measures 9.2 x 5.1 x 4 cm. T he left kidney measures 9.4 x 4.2 x 4 cm. The kidneys demonstrate normal parenchymal echogenicity. Th ere is no hydronephrosis. IMPRESSION: 1. Cirrhosis. 2. Cholelithiasis and mild wall thickening of the gallbladder which could be due to chronic liver dis ease. No additional findings of acute cholecystitis are identified. Recommend correlation for right u pper quadrant tenderness. Reviewed, dictated and finalized at location B. IMPRESSION: 1. Cirrhosis. 2. Cholelithiasis and mild wall thickening of the gallbladder which could be du e to chronic liver disease. No additional findings of acute cholecystitis are i dentified. Recommend correlation for right upper quadrant tenderness.
--- NOTE | ~2022-09-11 | CT_ITS ---
EXAMINATION: CT brain wo con DATE: 09/11/2022 13:11 INDICATION: Left hemiparesis. TECHNIQUE: Computed tomography (CT) of the head was performed without intravenous contrast. The mA wa s adjusted according to patient size. Iterative reconstruction technique was employed. The dose-lengt h product was 756.67 mGy-cm. COMPARISON: Head CT 01/30/2015 FINDINGS: There is an infarct in right temporal occipital region. There is an old infarct in posterio r right frontal lobe. There is an old lacunar infarct in left caudate nucleus. There are scattered ar eas of low attenuation in the cerebral white matter. There is no intracranial hemorrhage or abnormal mass lesion. The ventricles are normal in size. There is extensive dental disease. The mastoid air ce lls are normal. There is cerumen in the external auditory canal bilaterally. The orbits are normal. IMPRESSION: 1. Infarct in the right temporal occipital region, likely acute or subacute. 2. Old infarct in the posterior right frontal lobe. Old lacunar infarct in left caudate nucleus. 3. Worsened moderate nonspecific cerebral white matter disease, which likely represents chronic small vessel ischemic disease. Reviewed, dictated and finalized at location A. IMPRESSION: 1. Infarct in the right temporal occipital region, likely acute or subacute. 2. Old infarct in the posterior right frontal lobe. Old lacunar infarct in left caudate nucleus. 3. Worsened moderate nonspecific cerebral white matter disease, which likely re presents chronic small vessel ischemic disease.
--- NOTE | ~2022-09-11 | CT_ITS ---
EXAMINATION: CTA brain carotid DATE: 09/11/2022 15:51 INDICATION: Cerebrovascular accident. TECHNIQUE: Computed tomographic angiography (CTA) of the head was performed with 100 mL Omnipaque-350 intravenous contrast. CTA of the neck was performed with intravenous contrast. Automated exposure co ntrol and iterative reconstruction technique were employed. The dose-length product was 1157.65 mGy-c m. Maximum intensity projection and volume rendered 3D-reconstructions were created by the technologi st on a separate workstation. COMPARISON: Head CT 09/11/2022 FINDINGS: HEAD CTA: There is an infarct in right temporal occipital region. There is an old infarct in posterio r right frontal lobe. There is an old lacunar infarct in left caudate nucleus. There are scattered ar eas of low attenuation in the cerebral white matter. There is an old infarct in left occipital lobe. There is no intracranial hemorrhage or abnormal mass lesion. The ventricles are normal in size. There is extensive dental disease. The paranasal sinuses are clear. The orbits are normal. The mastoid air cells are normal. There is cerumen in the external auditory canals. The vertebral arteries are codom inant. There is no significant stenosis of basilar artery or the posterior cerebral arteries. There i s total occlusion of right P2 posterior cerebral artery. The posterior communicating arteries are nor mal. There is moderate stenosis of the intracranial internal carotid arteries. There is no significan t stenosis of the anterior or middle cerebral arteries. Anterior communicating artery is normal. Ther e is no aneurysm. NECK CTA: There is moderate stenosis of origin of right vertebral artery. There is severe stenosis of origin of left vertebral artery from the aortic arch. There is plaque in the proximal internal carot id arteries. There is 64% stenosis of the proximal right internal carotid artery relative to normal d istal artery lumen diameter (NASCET criteria). There is 12% stenosis of the proximal left internal ca rotid artery relative to normal distal artery lumen diameter. There is severe cervical spondylosis. IMPRESSION: 1. Infarct in right temporal occipital region, likely acute or subacute. 2. 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 3. 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 4. Moderate nonspecific cerebral white matter disease, which likely represents chronic small vessel i schemic disease. 5. Moderate stenosis of intracranial internal carotid arteries. 6. 64% stenosis of the proximal right internal carotid artery relative to normal distal artery lumen diameter (NASCET criteria). 7. 12% stenosis of the proximal left internal carotid artery relative to normal distal artery lumen d iameter. 8. Moderate stenosis of origin of right vertebral artery. Severe stenosis of origin of left vertebral artery. Reviewed, dictated and finalized at location A. IMPRESSION: 1. Infarct in right temporal occipital region, likely acute or subacute. 2. 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 3. 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 4. Moderate nonspecific cerebral white matter disease, which likely represents chronic small vessel ischemic disease. 5. Moderate stenosis of intracranial internal carotid arteries. 6. 64% stenosis of the proximal right internal carotid artery relative to agustin l distal artery lumen diameter (NASCET criteria). 7. 12% stenosis of the proximal left internal carotid artery relative to normal distal artery lumen diameter. 8. Moderate stenosis of origin of right vertebral artery. Severe stenosis of or igin of left vertebral artery.
--- NOTE | ~2022-09-11 | MR_ITS ---
EXAMINATION: MR brain/brain stem wo/w con DATE: 09/12/2022 12:47 INDICATION: Stroke with left-sided weakness and right-sided gaze deviation TECHNIQUE: Magnetic resonance imaging (MRI) of the brain and brainstem was performed without and with 15 mL Multihance intravenous contrast. Sequences included sagittal and axial T1-weighted SE, axial d iffusion-weighted FS SE, axial T2*-weighted GRE, axial 3D SWAN, axial T2-weighted FLAIR, and axial T2 -weighted FSE. Postcontrast axial and coronal T1-weighted SE was obtained. Apparent diffusion coeffic ient (ADC) maps were created. COMPARISON: Head CT dated 09/11/2022 FINDINGS: Restricted diffusion consistent with acute infarct involving the medial right temporal occipital francesca on and extending to the posterior right basal ganglia. Encephalomalacia consistent with chronic infar ct in the posterior right frontal lobe. Small old lacunar infarct at the left caudate nucleus. No int racranial hemorrhage or abnormal intracranial mass lesion. There are scattered areas of nonspecific i ncreased T2-weighted signal intensity in the cerebral white matter, predominantly involving the ponti ne, deep and periventricular white matter. There are no intraparenchymal signal abnormalities seen on the other pulse sequences. The ventricles are symmetric and normal in size. There are no abnormal ex tra-axial fluid collections. Flow voids are seen in the cerebral arteries on the T2-weighted sequence s consistent with their expected patency. Mild mucosal thickening in the paranasal sinuses. Visualize d orbits and soft tissues are unremarkable. There are no areas of abnormal enhancement on the post co ntrast images. IMPRESSION: 1. Acute infarct in the medial right temporal occipital region extending to the posterior right basal ganglia. 2. Old infarct in the posterior right frontal lobe and small old lacunar infarct at the left caudate nucleus. 3. Moderate scattered deep, periventricular and pontine predominant vasogenic white matter T2 hyperin tensity most likely related to chronic small vessel ischemic disease. Reviewed, dictated and finalized at location A. IMPRESSION: 1. Acute infarct in the medial right temporal occipital region extending to the posterior right basal ganglia. 2. Old infarct in the posterior right frontal lobe and small old lacunar infarc t at the left caudate nucleus. 3. Moderate scattered deep, periventricular and pontine predominant vasogenic w ezequiel matter T2 hyperintensity most likely related to chronic small vessel ische alpa disease.
--- NOTE | ~2022-09-11 | XR_ITS ---
EXAMINATION: XR ERCP DATE: 09/17/2022 14:40 CDT INDICATION: ABDOMINAL PAIN . TECHNIQUE: 4 fluoroscopic images of the right upper quadrant were obtained during ERCP performed by t ryder surgeon. I was not present in the operating room. Fluoroscopy exposure time was 89.5 seconds. Air Kerma 22.67 mGy. DAP 0.71746 mGym2. COMPARISON: None FINDINGS: Endoscope over the right upper quadrant, with cannulation of the common bile duct. Mild duct dilation . Filling defect in the mid duct may represent the previously detected common bile duct stone versus gas bubble. IMPRESSION: Fluoroscopic documentation of ERCP. Please refer to the operative note for complete procedural detail s . Reviewed, dictated and finalized at location K. IMPRESSION: Fluoroscopic documentation of ERCP. Please refer to the operative note for comp lete procedural details .
--- NOTE | ~2022-09-11 | XR_ITS ---
EXAMINATION: XR hip BI 2V w AP pelvis DATE: 09/11/2022 14:57 INDICATION: Hip pain. Fall. TECHNIQUE: An anteroposterior view of the pelvis and 2 views of each hip were obtained. COMPARISON: Pelvis radiograph 05/26/2014 FINDINGS: Bone alignment is normal. No fracture. There is severe lumbar spondylosis. There is mild os teoarthritis of the hips. IMPRESSION: 1. Mild osteoarthritis of the hips. Reviewed, dictated and finalized at location A.
--- NOTE | ~2022-09-11 | XR_ITS ---
EXAMINATION: XR_KNEE1-2VLT_CR, XR_KNEE1-2VRT_CR DATE: 09/12/2022 11:01 INDICATION: Bilateral knee pain post fall TECHNIQUE: 1. Portable AP and lateral views of the left knee were obtained. 2. Portable AP and lateral views of the right knee were obtained.. COMPARISON: None. FINDINGS: Alignment is normal at both knees. No fractures. Chondrocalcinosis at the medial lateral compartments of both knees. Moderate joint space narrowing at the medial compartment of the left knee. Remaining joint spaces appear relatively preserved although narrowing can be underestimated on nonweightbearing imaging. Minimal left knee joint effusion. No right knee joint effusion. Likely age-related symmetri c bilateral muscular atrophy. Atherosclerotic calcification posterior at the bilateral thighs and pro ximal calves. IMPRESSION: 1. Nonspecific small left knee joint effusion. No acute osseous abnormality. 2. Chondrocalcinosis of both knees with moderate osteoarthritis at the medial compartment of the left knee. Reviewed, dictated and finalized at location A. IMPRESSION: 1. Nonspecific small left knee joint effusion. No acute osseous abnormality. 2. Chondrocalcinosis of both knees with moderate osteoarthritis at the medial c ompartment of the left knee.
--- NOTE | ~2022-09-11 | MR_ITS ---
EXAMINATION: MR MRCP wo/w con/w 3D wo ind DATE: 09/15/2022 08:06 INDICATION: Abnormal liver function tests. TECHNIQUE: Magnetic resonance imaging (MRI) of the abdomen was performed without and with 14 mL Multi Andre intravenous contrast. Sequences included coronal T2-weighted FS FSE, coronal T2-weighted FSE, a xial T1-weighted LAVA, coronal FS FIESTA, axial dual-echo T1-weighted SPGR, coronal lava-FLEX, sagitt al T2-weighted FSE, axial T2-weighted FSE, and axial DWI. Thick-slab T2-weighted FSE images were obta ined for magnetic resonance cholangiopancreatography (MRCP). Maximum intensity projection 3-D reconst ructions of the volumetric data were created by the technologist. Postcontrast sequences included cor onal LAVA-flex and time course of axial T1-weighted LAVA. COMPARISON: Abdomen MRI 09/14/2022 FINDINGS: ABDOMEN MRI: The liver demonstrates surface nodularity, consistent with cirrhosis. The gallbladder is distended and contains gallstones. Gallbladder wall thickening is noted. There is fat stranding arou nd the gallbladder. The spleen is normal in size. The pancreas and adrenal glands normal. There is co rtical thinning in the kidneys. There is an 8 mm cyst in right kidney. There are no dilated loops of bowel. There are changes of fundoplication of the stomach. There are no pathologically enlarged lymph nodes. There is no free intraperitoneal fluid. ABDOMEN MRCP: There is a 7 mm stone in the common bile duct. The common bile duct is dilated to 11 mm . IMPRESSION: 1. 7 mm stone in the common bile duct with common duct dilatation. 2. Acute cholecystitis. 3. Cirrhosis of the liver. Reviewed, dictated and finalized at location E.
--- NOTE | 2022-09-11 12:59 | ECG_ITS ---
Measurements Intervals [place] Rate: 92 P: WV: 0 QRS: -16 QRSD: 101 T: 51 QT: 380 QTc: 472 Interpretive Statements ATRIAL FIBRILLATION MODERATE ST DEPRESSION [0.05+ mV ST DEPRESSION] ABNORMAL ECG COMPARED TO ECG 09/01/2020 20:50:44 ST (T WAVE) DEVIATION NOW PRESENT Electronically Signed On 09-12-2022 13:39:03 CDT by Theo Elam M.D.
[2022-09-11 13:04] LABS: Glucose Point of Care 157 mg/dl (65-105)
--- NOTE | 2022-09-11 13:31 | ED.NEUROSD ---
HPI - Neuro Symptoms/Deficit General Chief Complaint: Fall Stated Complaint: fall, hip injury & confused Time Seen by Provider: 09/11/22 12:42 History of Present Illness HPI Narrative: Pt presents with left sided weakness and right gaze preference. Pt states she thinks she had this this morning when she slid out of bed early this morning (before 800). Pt called for lift assist from EMS. Pt called EMS again for weakness and was transported to ED for evaluation. Pt denies [place]O. Pt has left sided weakness and eyes are gazing to the right. Related Data Home Medications Medication Instructions Recorded Confirmed amlodipine 5 mg tablet 5 mg PO DAILY 04/25/19 09/11/22 aspirin 325 mg tablet 325 mg PO DAILY 04/25/19 09/11/22 bumetanide 2 mg tablet 2 mg PO BID 04/25/19 09/11/22 magnesium oxide 400 mg (241.3 mg 400 mg PO DAILY 04/25/19 09/11/22 magnesium) tablet (MagOx) ezetimibe 10 mg tablet 10 mg PO DAILY 09/11/22 09/11/22 Allergies Allergy/AdvReac Type Severity Reaction Status Date / Time codeine Allergy Intermediate Hives Verified 07/24/22 08:30 meperidine Allergy Intermediate Hives Verified 07/24/22 08:30 propoxyphene Allergy Intermediate Hives Verified 07/24/22 08:30 hydromorphone AdvReac Intermediate Hives Verified 07/24/22 08:30 KETCHUP Allergy Severe Hives, Uncoded 07/24/22 08:30 swelling Review of Systems Review of Systems: All systems reviewed & are unremarkable except as noted in HPI and below PMFSH Past Medical History Medical History Acute blood loss anemia Acute renal insufficiency Chronic renal failure Anemia Aortic valve stenosis Atrial fibrillation Paroxysmal AVM (arteriovenous malformation) of stomach, acquired Basal cell carcinoma Cirrhosis noted by CT scan in 2018 with portal venous hypertension Colon, diverticulosis COPD (chronic obstructive pulmonary disease) Diastolic congestive heart failure Encounter for removal of skin lesion H/O: GI bleed 2018 History of obstructive sleep apnea Intolerant of the CPAP Hypercholesterolemia Hyperlipidemia Hypertensive heart disease Moderate aortic valve stenosis Paroxysmal atrial fibrillation Pulmonary hypertension Seizure Type 2 diabetes mellitus Surgical History Surgical History H/O arthroscopy of left knee H/O dilation and curettage H/O rectal polypectomy H/O shoulder surgery Bilateral pens that were later removed. H/O: hysterectomy History of Chelly fundoplication History of tonsillectomy Family History Family History Sibling Cerebrovascular accident, Onset Age: 60 Brother and sister Family history of renal failure Patient's sister is Patient's brother is Hypertension Brother Diabetes mellitus Brother and sister Mother Patient's mother is Family history of diabetes mellitus in first degree relative Heart disease Father Family history of malignant neoplasm, Onset Age: 88 Leukemia Hypertension Social History Social History Social History: The patient lives with her Pawan who is a durable power black jack dealer for healthcare. The patient desires to be a full code. Her son Trev is her only child. She worked at [employer] adult and children. She smokes 3-5 cigarettes a day. She occasionally has a Ingris with a Samoan food. Smoking packs per day: 0.5 Smoking cigarettes per day: 10.0 Years smoked: 50 Smoking pack-years: 25.00 Smoking status: Current every day smoker Tobacco type: cigarettes Second hand tobacco smoke exposure: No Smoking end date: 06/10/16 Alcohol intake: current Drinks per week: 4 Substance use: never Substance use type: does not use Lack of Transportatio
[2022-09-11] MEDS: ASPIRIN 325 MG TABLET PO (14:59)
[2022-09-11] MEDS: CLOPIDOGREL BISULFATE 75 MG TABLET PO (15:00)
[2022-09-11] MEDS: fentaNYL CITRATE INJ (*CRX) 100 MCG/2 ML VIAL 50 MCG IV PUSH (15:02)
[2022-09-11 15:21] LABS: Basophils Percent Auto 0.3 % (0.2-1.2); Hematocrit 40.5 % (37.0-47.0); Hemoglobin 13.3 g/dL (12.0-15.0); Immature Granulocyte Absolute 0.03 K/mm3 (0.00-0.031); Immature Granulocyte Percent A 0.3 % (0-0.5); Lymphocytes Percent Auto 9.9 % (18.3-44.2); Mean Corpuscular HGB Conc 32.8 g/dl (32-36); Mean Corpuscular Hemoglobin 28.1 pg (26-34); Mean Corpuscular Volume 85.6 fl (80-100); Mean Platelet Volume 10.2 fl (7.4-10.4); Monocytes Absolute Auto 0.8 K/mm3 (0.1-0.6); Monocytes Percent Auto 7.6 % (2.6-8.5); Neutrophils Absolute Auto 9.1 K/mm3 (1.3-6.7); Neutrophils Percent Auto 81.9 % (45.5-73.1); Platelet Count Result 179 k/mm3 (150-375); Red Blood Count 4.73 M/mm3 (4.2-5.4); Red Cell Distribution Width 14.2 % (11.5-14.5); White Blood Count 11.1 K/mm3 (4.5-10.0)
[2022-09-11 15:30] LABS: INR 1.1; Prothrombin Time 13.5 Seconds (11.1-14.7)
[2022-09-11 15:31] LABS: Alanine Aminotransferase 27 U/L (6-35); Albumin Level 4.4 g/dL (3.5-5.1); Alkaline Phosphatase 102 U/L (38-126); Anion Gap 7 mmol/L (8-16); Aspartate Amino Transferase 40 U/L (14-36); Bilirubin,Total 1.4 mg/dL (0.2-1.3); Blood Urea Nitrogen 21 mg/dL (7-17); Calcium 9.2 mg/dL (8.4-10.2); Carbon Dioxide 30 mmol/L (22-30); Chloride 98 mmol/L (98-107); Estimated Glomerular Filt Rate > 60; Glucose 147 mg/dL (65-110); Partial Thromboplastin Time 26.2 SECONDS (22.3-36.8); Potassium 3.8 mmol/L (3.4-5.0); Sodium 135 mmol/L (137-145)
[2022-09-11 16:01] LABS: Troponin I 0.039 ng/mL (0.000-0.034)
--- NOTE | 2022-09-11 17:18 | PC.NURSE ---
Pt reports starting to feeling nauseous and is requesting medication.
--- NOTE | 2022-09-11 17:39 | PM.IMHP ---
H&P: HPI History of Present Illness Date/Time: 09/11/22 17:39 Chief Complaint: Fall Narrative: This is a 71-year-old female patient who has a history of atrial fibrillation and diabetes type 2. The patient came to the emergency room with complaint of left-sided weakness and right gaze. The patient stated that she slid out of bed this morning before 8:00 a.m. and called for lift assistance via EMS. The patient was then transported to the emergency room for further evaluation. The patient's speech is clear. She has no facial droop but she has left-sided neglect. Her left upper arm and left lower extremity are flaccid. White counts 11.1 her glucose was 147. Troponin 0.039. AFib was noted on EKG. Head and neck CTA read as a following1. Infarct in right temporal occipital region, likely acute or subacute. 2. 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 3. 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 4. Moderate nonspecific cerebral white matter disease, which likely represents chronic small vessel ischemic disease. 5. Moderate stenosis of intracranial internal carotid arteries. 6. 64% stenosis of the proximal right internal carotid artery relative to normal distal artery lumen diameter (NASCET criteria). 7. 12% stenosis of the proximal left internal carotid artery relative to normal distal artery lumen diameter. 8. Moderate stenosis of origin of right vertebral artery. Severe stenosis of origin of left vertebral artery. Hip and pelvis x-ray mild osteoarthritis of the hips. Head CT read as the following1. Infarct in the right temporal occipital region, likely acute or subacute. 2. Old infarct in the posterior right frontal lobe. Old lacunar infarct in left caudate nucleus. 3. Worsened moderate nonspecific cerebral white matter disease, which likely represents chronic small vessel ischemic disease. Neurology was consulted. The patient was placed on aspirin and Plavix. The patient is being admitted to inpatient status on the date of service of 09/11/2022. Review of Systems Review of Systems: All systems reviewed & are unremarkable except as noted in HPI and below Constitutional: Constitutional: Reports as per HPI and Reports no additional constitutional complaints Eyes: Eyes: Reports as per HPI and Reports no additional eye complaints ENT: Reports system reviewed and no additional complaints, except as documented and Reports Normal hearing present Cardiovascular: Cardiovascular: Reports no additional cardiovascular complaints Respiratory: Respiratory: Reports no additional respiratory complaints and Reports no additional respiratory complaints Gastrointestinal: Gastrointestinal: Reports as per HPI and Reports no additional gastrointestinal complaints Musculoskeletal: Musculoskeletal: Reports no additional musculoskeletal complaints Integumentary/Breasts: Skin/Breast: Reports system reviewed and no additional complaints, except as docu and Reports as per HPI Neurologic: Reports system reviewed and no additional complaints, except as documented, Reports as per HPI and Reports Normal hearing present Psychiatric: Psychiatric: Reports no additional psychiatric complaints and Reports as per HPI Endocrine: Endocrine: Reports no additional endocrine complaints Hematologic/Lymphatic: Hematologic/Lymphatic: Reports no additional hematologic/lymphatic complaints Allergic/Immunologic: Allergic/Immunologic: Reports no additional allergic/immunologic complaints PMFSH Past Medical History Medical History Acute blood loss anemia Acute renal insufficiency Chronic renal failure Anemia Aortic valve stenosis Atrial fibrillation Paroxysmal AVM (arteriovenous malformation) of stomach, acquired Basal cell carcinoma Cirrhosis noted by CT scan in 2018 with portal venous hypertension Colon, diverticulosis COPD (chronic obstructive pulmonary di
[2022-09-11] MEDS: ONDANSETRON INJ 4 MG/2 ML VIAL IV PUSH (18:06)
--- NOTE | 2022-09-11 19:32 | ADMGEN ---
This patient, Nisha Lu, was admitted to Virtual Bed 3rd Floor-1. Patient/family oriented to hospital policies and general routines including ID bracelet, bed and alarms, visiting hours, pain management, procedures, bathroom and other care routines, personal items, smoking policy, room service/diet, and visiting hours. Information on how to activate the Rapid Response Team has been discussed. Patient/Family are encouraged to report perceived risks to care and to ask questions if they do not understand what they are told or what they should do.
[2022-09-12] VITALS (13 sets, daily range): BP systolic 115–156; BP diastolic 47–64; PULSE 71–100; RESP 18–20; TEMP 36.4–36.6; O2SAT 91–98
--- NOTE | 2022-09-12 | ECHO_ITS ---
Patient Info Name: Nisha Lu Age: 71 years : 1950 Gender: Female Ht: 67 in Wt: 164 lbs BSA: 1.89 m2 HR: 98 bpm BP: 156 / 61 mmHg Heart Rhythm: Sinus Rhythm Technical Quality: Fair Exam Date: 09/12/2022 11:04 AM Exam Location: [facility] Pulmonary Exam Room: 214 Patient Status: Inpatient Admit Date: 09/11/2022 Staff Ordering Physician: Cara Carrillo DO Spooler Operator Automatic: Enriqueta Childs RDCS Attending Provider: Tory Chan MD Referring Physician: Gerardo WORLEY; Exam Type: CA echo dop color flow w con Study Info Indications - CVA Complete two-dimensional, color flow and Doppler transthoracic echocardiogram is performed with contrast to opacify the left ventricle and to improve the deliniation of the left ventricle endocardial borders. Contrast/Agitated Saline Contrast/Ag. Saline: Definity Amount: 2.00 ml Administered By: Enriqueta Childs [facility] Existing IV Access: Yes IV Access Condition: patent with no signs of infiltration Summary 1. Left ventricular chamber dimension is normal. 2. Left ventricular systolic function is hyperdynamic, estimated at >70%. 3. There is mildly increased left ventricular wall thickness. 4. The left ventricular diastolic function is abnormal. 5. Right atrial chamber dimension is mildly enlarged. 6. Left atrial chamber dimension is severely enlarged. 7. There is moderate aortic valve stenosis with a peak velocity of 308.76 cm/s, mean gradient of 19 mmHg, and aortic valve area of 1.11 cm2. 8. There is mild aortic valve regurgitation. 9. There is moderate aortic valve calcification. 10. There is mild mitral valve stenosis. 11. The mitral valve has thickened leaflets. 12. There is mild mitral valve regurgitation. 13. The mitral valve annulus is severely calcified. 14. There is mild tricuspid valve regurgitation. 15. Mild pulmonary hypertension, estimated pulmonary arterial systolic pressure is 38 mmHg. 16. There is mild pulmonic regurgitation. Left Ventricle Left ventricular chamber dimension is normal. Left ventricular systolic function is hyperdynamic, estimated at >70%. There is mildly increased left ventricular wall thickness. The left ventricular diastolic function is abnormal. Right Ventricle Right ventricular chamber dimension is normal. Right ventricular systolic function is normal. Left Atria Left atrial chamber dimension is severely enlarged. Right Atria Right atrial chamber dimension is mildly enlarged. Atrial Septum Intact interatrial septum visualized by color flow imaging. Aortic Valve The aortic valve is trileaflet. There is moderate aortic valve stenosis with a peak velocity of 308.76 cm/s, mean gradient of 19 mmHg, and aortic valve area of 1.11 cm2. There is mild aortic valve regurgitation. There is moderate aortic valve calcification. Pulmonic Valve The pulmonic valve is normal. There is no pulmonic valve stenosis. There is mild pulmonic regurgitation. Mitral Valve The mitral valve has thickened leaflets. There is mild mitral valve stenosis. There is mild mitral valve regurgitation. The mitral valve annulus is severely calcified. Tricuspid Valve The tricuspid valve leaflets are normal. There is no significant tricuspid valve stenosis. There is mild tricuspid valve regurgitation. Mild pulmonary hypertension, estimated pulmonary arterial systolic pressure is 38 mmHg. Pericardium/Pleural The pericardium a
[2022-09-12 04:36] LABS: Basophils Percent Auto 0.3 % (0.2-1.2); Eosinophils Absolute Auto 0.1 K/mm3 (0-0.3); Eosinophils Percent Auto 0.7 % (0-4.4); Hemoglobin 13.1 g/dL (12.0-15.0); Immature Granulocyte Absolute 0.04 K/mm3 (0.00-0.031); Immature Granulocyte Percent A 0.4 % (0-0.5); Lymphocytes Absolute Auto 1.65 K/mm3 (0.9-3.2); Lymphocytes Percent Auto 18.5 % (18.3-44.2); Mean Corpuscular HGB Conc 31.2 g/dl (32-36); Mean Corpuscular Hemoglobin 27.5 pg (26-34); Mean Corpuscular Volume 88.2 fl (80-100); Mean Platelet Volume 10.1 fl (7.4-10.4); Monocytes Absolute Auto 0.8 K/mm3 (0.1-0.6); Monocytes Percent Auto 9.2 % (2.6-8.5); Neutrophils Absolute Auto 6.3 K/mm3 (1.3-6.7); Neutrophils Percent Auto 70.9 % (45.5-73.1); Platelet Count Result 162 k/mm3 (150-375); Red Blood Count 4.76 M/mm3 (4.2-5.4); Red Cell Distribution Width 14.3 % (11.5-14.5); White Blood Count 8.9 K/mm3 (4.5-10.0)
[2022-09-12 04:53] LABS: Alanine Aminotransferase 27 U/L (6-35); Albumin Level 4.4 g/dL (3.5-5.1); Alkaline Phosphatase 98 U/L (38-126); Anion Gap 8 mmol/L (8-16); Aspartate Amino Transferase 45 U/L (14-36); Bilirubin,Total 1.3 mg/dL (0.2-1.3); Blood Urea Nitrogen 15 mg/dL (7-17); Calcium 9.2 mg/dL (8.4-10.2); Carbon Dioxide 29 mmol/L (22-30); Chloride 101 mmol/L (98-107); Estimated CRCL calculation 49 ml/min; Estimated Glomerular Filt Rate > 60; Glucose 133 mg/dL (65-110); Lipase 42 U/L (23-300); Magnesium 2.2 mg/dL (1.6-2.3); Potassium 3.9 mmol/L (3.4-5.0); Sodium 138 mmol/L (137-145)
[2022-09-12] MEDS: BUMETANIDE 1 MG TABLET 2 MG PO ×2 (08:31→17:21)
[2022-09-12] MEDS: METOPROLOL TARTRATE 25 MG TABLET PO ×2 (08:31→19:54)
[2022-09-12] MEDS: ASPIRIN 325 MG TABLET PO (08:31)
[2022-09-12] MEDS: amLODIPine BESYLATE 5 MG TABLET PO (08:31)
[2022-09-12] MEDS: POTASSIUM CHLORIDE 10 MEQ TABLET.ER PO (08:32)
[2022-09-12] MEDS: ATORVASTATIN 10 MG TABLET PO (08:32)
[2022-09-12] MEDS: EZETIMIBE 10 MG TABLET PO (08:32)
[2022-09-12] MEDS: MAGNESIUM OXIDE 400 MG TABLET PO (08:32)
[2022-09-12] MEDS: PANTOPRAZOLE 40 MG TABLET PO (08:32)
[2022-09-12] MEDS: SPIRONOLACTONE 25 MG TABLET PO (08:32)
[2022-09-12] MEDS: PERFLUTREN LIPID MICROSPHERES 1.5 ML VIAL DILUTED TO 10 ML TOTAL VOLUME IV PUSH (11:30)
--- NOTE | 2022-09-12 12:08 | WPDNEURCNPN ---
Assessment and Plan Assessment and plan (1) Acute CVA (cerebrovascular accident): Code(s): I63.9 - Cerebral infarction, unspecified Status: Acute (2) Cigarette smoker: Code(s): F17.210 - Nicotine dependence, cigarettes, uncomplicated Status: Acute (3) Type 2 diabetes mellitus: Qualifiers: Diabetes mellitus half-way insulin use: unspecified half-way insulin use status Diabetes mellitus complication status: without complication Qualified Code(s): E11.9 - Type 2 diabetes mellitus without complications Code(s): E11.9 - Type 2 diabetes mellitus without complications Status: Acute (4) Chronic kidney disease: Code(s): N18.9 - Chronic kidney disease, unspecified Status: Acute (5) Aortic valve stenosis: Qualifiers: Cardiac valve disease etiology: nonrheumatic Qualified Code(s): I35.0 - Nonrheumatic aortic (valve) stenosis Code(s): I35.0 - Nonrheumatic aortic (valve) stenosis Status: Chronic (6) Diastolic congestive heart failure: Qualifiers: Heart failure chronicity: chronic Qualified Code(s): I50.32 - Chronic diastolic (congestive) heart failure Code(s): I50.30 - Unspecified diastolic (congestive) heart failure Status: Chronic (7) Atrial fibrillation: Qualifiers: Atrial fibrillation type: persistent (not longstanding) Qualified Code(s): I48.19 - Other persistent atrial fibrillation Code(s): I48.91 - Unspecified atrial fibrillation Status: Chronic Plan 1 multiple strokes as outlined above 2 multiple underlying risk factors as outlined 3 can not use the anticoagulation, he can use aspirin Plavix for short duration, but does not mean that we will prevent the recurrence of the stroke, family is completely aware and we can increase thcholestrol lowering medication for the time being head as tolerated discussion with her son in the room. Consult date: 09/12/22 HPI: Her ultrasound venous Doppler on stephany Lu is a 71 year old female admitted to the hospital to the emergency room for the complaints of 4 because of the underlying confusion and with resultant trauma to the hip and 80 still complains of left-sided weakness with right-sided gaze peripheral patient noted that she probably had this incident early in the morning and she had cold for lift assist from EMS EMS brought her to the emergency room he did not complain of headache but noted early had the left-sided weakness and preferred the right-sided gaze. Medication as an outpatient included amlodipine 5 mg daily aspirin 325 mg daily and bumetanide 2 mg twice a day in in addition ease at MIP 10 mg daily. She is allergic to multiple medications as outlined. Her past history is consistent with anemia secondary to blood loss, renal insufficiency and chronic renal failure, aortic valvular stenosis with atrial fibrillation and atrial venous malformation office stomach in addition to cirrhosis of the liver and diverticulosis of the colon COPD and diastolic congestive heart failure PE she has a history of all years to smoke 50 smoking pack years 25 and currently every day smoker with drinks of 4 per week evaluation up until now included CBC with hemoglobin all 13.1 PT of 13.5 and INR of 1.1, hepatic enzymes normal except AST of 40 and 45 and total bilirubin initially of 1.4 troponin 0.039, head neck CTA documented total occlusion of right P2 post years stable artery, moderate stenosis of the intracranial internal carotid arteries, 60 poor % stenosis of the proximal right internal carotid artery, 12% stenosis of the proximal left internal carotid artery and moderate stenosis of origin of right vertebral artery with severe stenosis of origin of the left vertebral artery PE Review of Systems Review of Systems: All systems reviewed & are unremarkable except as noted in HPI and below PMFSH Past Medical History Medical History (Reviewed 09/11/22 @ 17:39 by Pamela Agee
--- NOTE | 2022-09-12 12:55 | PM.IMPN ---
Progress Note: A&P Assessment and Plan (1) Acute CVA (cerebrovascular accident): Code(s): I63.9 - Cerebral infarction, unspecified Status: Acute Assessment and Plan: PT/OT evaluation, increase lipitor to 80 mg, aspirin, Plavix Appreciate neurology consultation, follow-up MRI, echo (2) Hyperlipidemia: Code(s): E78.5 - Hyperlipidemia, unspecified Status: Chronic Assessment and Plan: Continue with Zetia and Lipitor (3) Diastolic congestive heart failure: Qualifiers: Heart failure chronicity: chronic Qualified Code(s): I50.32 - Chronic diastolic (congestive) heart failure Code(s): I50.30 - Unspecified diastolic (congestive) heart failure Status: Chronic Assessment and Plan: Continue metoprolol Continue spironolactone Continue Bumex (4) COPD (chronic obstructive pulmonary disease): Code(s): J44.9 - Chronic obstructive pulmonary disease, unspecified Status: Chronic Assessment and Plan: P.r.n. Xopenex (5) Atrial fibrillation: Qualifiers: Atrial fibrillation type: persistent (not longstanding) Qualified Code(s): I48.19 - Other persistent atrial fibrillation Code(s): I48.91 - Unspecified atrial fibrillation Status: Chronic Assessment and Plan: Continue with aspirin and metoprolol Plan DVT prophylaxis with SCDs GI prophylaxis with PPI Code status full code Subjective Date/time seen: 09/12/22 12:55 Interval history: 71-year-old female with past medical history significant for atrial fibrillation, diabetes is presenting with left-sided weakness and found to multiple CVAs, both acute and chronic. No overnight events noted. No chest pain or shortness of breath. No nausea, vomiting or diarrhea. No fevers or chills. Review of Systems Review of Systems: 12 point review of systems was assessed and was negative except as noted in the HPI Exam Narrative: General: No acute distress, alert and oriented per baseline HEENT: Atraumatic, normocephalic, mucous membranes moist CV: Regular rate and rhythm, S1, S2 Lungs: Clear to auscultation bilaterally, no rales or crackles noted, no wheezes, good air entry Abdomen: Soft, nontender, nondistended Extremities: Normal to inspection Skin: No rashes noted, no lesions or wounds seen Psych: Euthymic, normal affect Objective Data Vital Signs Vital Signs: Vital Signs - 24 hr 09/11/22 13:01 09/11/22 13:02 09/11/22 14:06 Temperature Pulse Rate 91 91 133 H Respiratory Rate 22 H 22 H 24 H Blood Pressure 163/64 H 150/75 H Pulse Oximetry Oxygen Delivery 09/11/22 14:31 09/11/22 14:46 09/11/22 15:31 Temperature Pulse Rate 86 83 93 Respiratory Rate 24 H 20 22 H Blood Pressure 167/73 H 163/82 H 158/72 H Pulse Oximetry Oxygen Delivery 09/11/22 17:32 09/11/22 18:01 09/11/22 18:16 Temperature Pulse Rate 86 106 H 88 Respiratory Rate 20 30 H 21 H Blood Pressure 149/55 H 156/72 H 151/69 H Pulse Oximetry 94 Oxygen Delivery 09/11/22 19:00 09/11/22 20:00 09/11/22 20:00 Temperature 98.1 F Pulse Rate 86 86 Respiratory Rate 18 Blood Pressure 171/49 H Pulse Oximetry 95 Oxygen Delivery Room Air 09/11/22 23:58 09/12/22 00:00 09/12/22 00:00 Temperature 97.6 F Pulse Rate 110 H 100 Respiratory Rate 20 Blood Pressure 157/68 H Pulse Oximetry 98 Oxygen Delivery Room Air 09/12/22 02:00 09/12/22 04:00 09/12/22 04:00 Temperature 97.8 F Pulse Rate 79 83 Respiratory Rate 20 Blood Pressure 156/61 H Pulse Oximetry 98 Oxygen Delivery Room Air 09/12/22 04:00 09/12/22 08:00 09/12/22 08:31 Temperature 97.7 F Pulse Rate 98 87 84 Respiratory Rate 20 Blood Pressure 151/47 H Pulse Oximetry 91 Oxygen Delivery 09/12/22 08:00 09/12/22 08:00 09/12/22 09:31 Temperature Pulse Rate 91 Respiratory Rate Blood Pressure Pul
[2022-09-12] MEDS: ACETAMINOPHEN 325 MG TABLET 650 MG PO (13:21)
[2022-09-12] MEDS: NICOTINE (*PBKC) 21 MG PATCH 1 PATCH TRANSDERM (18:25)
[2022-09-13] VITALS (17 sets, daily range): BP systolic 121–145; BP diastolic 49–67; PULSE 68–90; RESP 16–20; TEMP 36.2–36.8; O2SAT 92–100
--- NOTE | 2022-09-13 | ECHO_ITS ---
Patient Info Name: Nisha Lu Age: 71 years : 1950 Gender: Female Ht: 67 in Wt: 164 lbs BSA: 1.89 m2 HR: 72 bpm BP: 141 / 67 mmHg Exam Date: 09/13/2022 2:51 PM Exam Location: [facility] Pulmonary Patient Status: Inpatient Admit Date: 09/11/2022 Staff Ordering Physician: Kellen Puentes DO Trimming Machine Set Up Operator: Manuel Carlton RDCS, RT Attending Provider: Tory Chan MD Referring Physician: Dhaval TERRY; Exam Type: CA echo limited w bubble study Study Info Indications - CVA Limited two-dimensional transthoracic echocardiogram is performed with agitated saline. Summary 1. Limited study done for bubble study. 2. No evidence of an intracardiac shunt on bubble study. With Valsalva, there are a few bubbles seen in the left atrium after >5 cardiac beats, indicating a possible intrapulmonary shunt. 3. Left atrial chamber dimension is severely enlarged. 4. The mitral valve annulus is severely calcified. Left Atria Left atrial chamber dimension is severely enlarged. Atrial Septum No evidence of an intracardiac shunt on bubble study. With Valsalva, there are a few bubbles seen in the left atrium after >5 cardiac beats, indicating a possible intrapulmonary shunt. Mitral Valve The mitral valve annulus is severely calcified. Report Signatures
[2022-09-13 04:51] LABS: Basophils Percent Auto 0.5 % (0.2-1.2); Eosinophils Absolute Auto 0.1 K/mm3 (0-0.3); Eosinophils Percent Auto 0.6 % (0-4.4); Hematocrit 43.2 % (37.0-47.0); Hemoglobin 13.5 g/dL (12.0-15.0); Immature Granulocyte Absolute 0.05 K/mm3 (0.00-0.031); Immature Granulocyte Percent A 0.6 % (0-0.5); Lymphocytes Absolute Auto 1.35 K/mm3 (0.9-3.2); Lymphocytes Percent Auto 16.2 % (18.3-44.2); Mean Corpuscular HGB Conc 31.3 g/dl (32-36); Mean Corpuscular Hemoglobin 27.1 pg (26-34); Mean Corpuscular Volume 86.6 fl (80-100); Monocytes Percent Auto 11.7 % (2.6-8.5); Neutrophils Absolute Auto 5.9 K/mm3 (1.3-6.7); Neutrophils Percent Auto 70.4 % (45.5-73.1); Platelet Count Result 166 k/mm3 (150-375); Red Blood Count 4.99 M/mm3 (4.2-5.4); Red Cell Distribution Width 13.9 % (11.5-14.5); White Blood Count 8.3 K/mm3 (4.5-10.0)
[2022-09-13 05:54] LABS: Alanine Aminotransferase 28 U/L (6-35); Albumin Level 4.1 g/dL (3.5-5.1); Alkaline Phosphatase 95 U/L (38-126); Anion Gap 7 mmol/L (8-16); Aspartate Amino Transferase 43 U/L (14-36); Bilirubin,Total 2.1 mg/dL (0.2-1.3); Blood Urea Nitrogen 16 mg/dL (7-17); Calcium 8.9 mg/dL (8.4-10.2); Carbon Dioxide 33 mmol/L (22-30); Chloride 93 mmol/L (98-107); Estimated CRCL calculation 44 ml/min; Estimated Glomerular Filt Rate 55; Glucose 138 mg/dL (65-110); Potassium 3.4 mmol/L (3.4-5.0); Sodium 133 mmol/L (137-145)
[2022-09-13] MEDS: ONDANSETRON INJ 4 MG/2 ML VIAL IV PUSH (06:11)
--- NOTE | 2022-09-13 07:41 | ECG_ITS ---
Measurements Intervals [place] Rate: 78 P: [place]: 0 QRS: -26 QRSD: 100 T: 29 QT: 403 QTc: 459 Interpretive Statements ATRIAL FIBRILLATION BORDERLINE LEFT AXIS DEVIATION [QRS AXIS < -20] NONSPECIFIC ST AND T WAVE ABNORMALITY COMPARED TO ECG 09/11/2022 14:01:59 NO SIGNIFICANT CHANGES Electronically Signed On 09-13-2022 10:47:44 CDT by Tamiko Beltran M.D.
--- NOTE | 2022-09-13 07:57 | PC.NURSE ---
Pt had a 10 beat run of V-tach today, Pt also now is c/o c/p to the rt lower side mid and stating it is a dull pain denies nausea at this time, or SOB vitals are stable at this time SPO2 is 98% on RA, BP 141/67, temp 97.1, HR 77 a-fib this nurse made Dr Spears aware of findings gave order to get EKG, trop level, K, phos level stat. Pt is axox2-3 which is baseline for her at this time, pt had runs of v-tach through out the night last night.
[2022-09-13] MEDS: ATORVASTATIN 40 MG TABLET 80 MG PO (08:00)
--- NOTE | 2022-09-13 08:03 | PM.IMPN ---
Progress Note: A&P Assessment and Plan (1) Acute CVA (cerebrovascular accident): Code(s): I63.9 - Cerebral infarction, unspecified Status: Acute Assessment and Plan: PT/OT evaluation, increase lipitor to 80 mg, aspirin, Plavix Appreciate neurology consultation, echo w/bubble pending MRI brain 09/12 showed acute CVA medial right temporal occipital region extending into the posterior right basal ganglia (2) Hyperlipidemia: Code(s): E78.5 - Hyperlipidemia, unspecified Status: Chronic Assessment and Plan: Continue with Zetia and Lipitor (3) Diastolic congestive heart failure: Qualifiers: Heart failure chronicity: chronic Qualified Code(s): I50.32 - Chronic diastolic (congestive) heart failure Code(s): I50.30 - Unspecified diastolic (congestive) heart failure Status: Chronic Assessment and Plan: Continue metoprolol Continue spironolactone Continue Bumex (4) COPD (chronic obstructive pulmonary disease): Code(s): J44.9 - Chronic obstructive pulmonary disease, unspecified Status: Chronic Assessment and Plan: P.r.n. Xopenex (5) Atrial fibrillation: Qualifiers: Atrial fibrillation type: persistent (not longstanding) Qualified Code(s): I48.19 - Other persistent atrial fibrillation Code(s): I48.91 - Unspecified atrial fibrillation Status: Chronic Assessment and Plan: Continue with aspirin and metoprolol (6) Arrhythmia: Code(s): I49.9 - Cardiac arrhythmia, unspecified Status: Acute Assessment and Plan: Vtach with abnormal T waves noted on tele, EKG pending, check mag, phos, trop, cardio consult pending Plan DVT prophylaxis with SCDs GI prophylaxis with PPI Code status full code Subjective Date/time seen: 09/13/22 08:03 Interval history: 71-year-old female with past medical history significant for atrial fibrillation, diabetes is presenting with left-sided weakness and found to multiple CVAs, both acute and chronic. Confused overnight per nursing. Run of vtach this morning with some complaints of chest pain. Review of Systems Review of Systems: 12 point review of systems was assessed and was negative except as noted in the HPI Exam Narrative: General: No acute distress, alert and oriented per baseline HEENT: Atraumatic, normocephalic, mucous membranes moist CV: tachy, S1, S2 Lungs: Clear to auscultation bilaterally, no rales or crackles noted, no wheezes, good air entry Abdomen: Soft, nontender, nondistended Extremities: Normal to inspection Skin: No rashes noted, no lesions or wounds seen Psych: Euthymic, normal affect Neuro: 5/5 RUE + RLE, 4/5 LUE, 3/5 LLE Objective Data Vital Signs Vital Signs: Vital Signs - 24 hr 09/12/22 08:31 09/12/22 09:31 09/12/22 10:00 Temperature Pulse Rate 84 71 Respiratory Rate Blood Pressure Pulse Oximetry Oxygen Delivery Room Air Oxygen Flow Rate 09/12/22 12:00 09/12/22 12:00 09/12/22 12:00 Temperature Pulse Rate 83 83 83 Respiratory Rate 20 Blood Pressure Pulse Oximetry 92 Oxygen Delivery Room Air Oxygen Flow Rate 09/12/22 12:00 09/12/22 14:00 09/12/22 16:00 Temperature 97.5 F L 97.5 F L Pulse Rate 80 81 77 Respiratory Rate 20 18 Blood Pressure 115/64 134/55 L Pulse Oximetry 96 96 Oxygen Delivery Oxygen Flow Rate 09/12/22 16:00 09/12/22 16:00 09/12/22 18:00 Temperature Pulse Rate 78 84 Respiratory Rate Blood Pressure Pulse Oximetry 95 Oxygen Delivery Nasal Cannula Oxygen Flow Rate 2 09/12/22 19:54 09/12/22 20:00 09/12/22 20:00 Temperature 97.6 F Pulse Rate 80 93 Respiratory Rate 18 Blood Pressure 137/60 Pulse Oximetry 96 95 Oxygen Delivery Nasal Cannula Oxygen Flow Rate 2 09/12/22 20:00 09/12/22 23:21 09/13/22 00:00 Temperature 97.8 F Pulse Rate 87 72 Respiratory
[2022-09-13 08:12] LABS: Magnesium 1.9 mg/dL (1.6-2.3); Phosphorus 3.8 mg/dL (2.5-4.5)
[2022-09-13 08:23] LABS: Troponin I 0.028 ng/mL (0.000-0.034)
[2022-09-13] MEDS: ASPIRIN 325 MG TABLET PO (08:28)
[2022-09-13] MEDS: BUMETANIDE 1 MG TABLET 2 MG PO ×2 (08:28→17:01)
[2022-09-13] MEDS: PANTOPRAZOLE 40 MG TABLET PO (08:29)
[2022-09-13] MEDS: SPIRONOLACTONE 25 MG TABLET PO (08:29)
[2022-09-13] MEDS: METOPROLOL TARTRATE 25 MG TABLET PO ×2 (08:29→11:28)
[2022-09-13] MEDS: MAGNESIUM OXIDE 400 MG TABLET PO (08:29)
[2022-09-13] MEDS: EZETIMIBE 10 MG TABLET PO (08:29)
[2022-09-13] MEDS: amLODIPine BESYLATE 5 MG TABLET PO (08:29)
[2022-09-13] MEDS: POTASSIUM CHLORIDE 10 MEQ TABLET.ER PO (08:30)
[2022-09-13] MEDS: NICOTINE (*PBKC) 21 MG PATCH 1 PATCH TRANSDERM (09:41)
--- NOTE | 2022-09-13 10:05 | PM.CNCAR ---
Assessment and Plan Assessment and plan (1) Acute CVA (cerebrovascular accident): Code(s): I63.9 - Cerebral infarction, unspecified Status: Acute Assessment and Plan: Neurology consulted. Neuro recommending ASA and Plavix (2) Atrial fibrillation: Qualifiers: Atrial fibrillation type: persistent (not longstanding) Qualified Code(s): I48.19 - Other persistent atrial fibrillation Code(s): I48.91 - Unspecified atrial fibrillation Status: Chronic Assessment and Plan: Rate controlled atrial fibrillation. Not on anticoagulation due to GI bleeding in the past and history of falls. Continue with high dose ASA. Continue beta janet for rate control. I discussed with her today regarding left atrial appendage occlusion device, and the indication for Watchman/Amulet. Patient would be a good candidate for the device given her stroke and inability to tolerate anticoagulation. Dr. Colby also had this discussion with her at her last clinic visit in 10/2021, but she said she wanted to think about it at that time. During my conversation with her today, she states she will think it over again, but doesn't think she wants it. Will arrange follow-up with Dr. Colby in clinic. (3) NSVT (nonsustained ventricular tachycardia): Code(s): I47.29 - Other ventricular tachycardia Status: Acute Assessment and Plan: Telemetry shows some very brief episodes of nonsustained VT. Most of the episodes labeled as VT on the telemetry are actually artifact, but there are a few very brief episodes of what looks like true NSVT. Echocardiogram this admission shows hyperdynamic LV with LVSF >70%, moderate , mild AR, mild MS, mild MR, mild TR, mild NM. I am going to increase her beta janet from Metoprolol 25mg BID to 50mg BID. Keep electrolytes optimized. (4) Chest pain: Code(s): R07.9 - Chest pain, unspecified Status: Acute Assessment and Plan: States she had an episode of substernal chest pain that occurred this morning while sitting in bed. Lasted for about 30 minutes and then self resolved. Has not had recurrence of pain. Has not had chest pain prior to admission or recently in the past few weeks or months. Due to her episode of chest pain, troponin level was checked which was within normal limits. EKG obtained which showed atrial fibrillation without ischemic changes. Echocardiogram this admission shows hyperdynamic LV with LVSF >70%, moderate , mild AR, mild MS, mild MR, mild TR, mild NM. At this time, patient is now asymptomatic. Would monitor for any recurrences of chest pain. Continue with ASA and statin. Increasing her beta janet dose. Would not be a candidate for ischemic evaluation at this time due to her acute stroke. History of Present Illness History of Present Illness Consult date/time: 09/13/22 10:05 Requesting physician: Kellen Puentes, Consult reason: Other (VT, CVA, AFIB, Chest pain) Reason For Visit: CVA Narrative: Reason for consult: VT, CVA, AFIB, Chest pain. Nisha Lu is a 71-year-old female with a history of COPD, LENORA, history of GI bleed, HFpEF, aortic stenosis, mitral regurgitation, diabetes mellitus, hypertension, dyslipidemia, tobacco abuse, atrial fibrillation not a candidate for anticoagulation who follows with Dr. Colby in our office. Last saw Dr. Colby in 10/2021. Patient presented to [facility] 09/11 for left-sided weakness and right gaze. She was noted to have left-sided neglect. Her left upper arm and left lower extremity were noted to be flaccid. Troponin 0.039. EKG with atrial fibrillation. Head CT showed infarct in the right temporal occipital region, likely acute or subacute. Old infarct noted in the posterior right frontal lobe. Old lacunar infarct noted in the left caudate nucleus. Brain MRI shows acute infarct in the medial right temporal occipital region extending to the posterior right basal ganglia. Telemetry s
[2022-09-13] MEDS: HYDROcodone/acetaminophen (*CRX) 5-325 MG TABLET 1 TAB PO ×3 (10:22→20:31)
[2022-09-13 11:37] LABS: Glucose Point of Care 175 mg/dl (65-105)
--- NOTE | 2022-09-13 13:29 | WPDNEUROPN ---
Subjective Date/time seen: 09/13/22 13:29 Interval history: acute CVA with nicotine dependence, type 2 diabetes mellitus, chronic renal disease, aortic valve stenosis, digestive congestive heart failure, atrial fibrillation, and echocardiogram with left atrial chamber severely enlarged with moderate aortic valve stenosis in addition to moderate aortic valve calcification and mild regurgitation along with mild mitral valve stenosis, cardiology consultation noted for the recommendation of left atrial appendage occlusion device and indication for watch man given her stroke and inability to tolerate anticoagulation but this has been denied in the past will have a follow-up with Dr. margot lima for the ongoing conversation and treatment at this particular time aspirin will be continued as such and her neurological status remains stable with definite improvement in the mood and speech Objective Data Vital Signs Vital Signs: Vital Signs - 24 hr 09/12/22 14:00 09/12/22 16:00 09/12/22 16:00 Temperature 36.4 C L Pulse Rate 81 77 78 Respiratory Rate 18 Blood Pressure 134/55 L Pulse Oximetry 96 Oxygen Delivery Oxygen Flow Rate 09/12/22 16:00 09/12/22 18:00 09/12/22 19:54 Temperature Pulse Rate 84 80 Respiratory Rate Blood Pressure Pulse Oximetry 95 Oxygen Delivery Nasal Cannula Oxygen Flow Rate 2 09/12/22 20:00 09/12/22 20:00 09/12/22 20:00 Temperature 36.4 C Pulse Rate 93 87 Respiratory Rate 18 Blood Pressure 137/60 Pulse Oximetry 96 95 Oxygen Delivery Nasal Cannula Oxygen Flow Rate 2 09/12/22 23:21 09/13/22 00:00 09/13/22 00:00 Temperature 36.6 C Pulse Rate 72 80 Respiratory Rate 20 Blood Pressure 126/53 L Pulse Oximetry 97 95 Oxygen Delivery Nasal Cannula Oxygen Flow Rate 2 09/13/22 04:00 09/13/22 04:00 09/13/22 04:00 Temperature 36.6 C Pulse Rate 78 78 Respiratory Rate 20 Blood Pressure 126/54 L Pulse Oximetry 95 92 Oxygen Delivery Nasal Cannula Oxygen Flow Rate 2 09/13/22 08:23 09/13/22 08:00 09/13/22 08:29 Temperature 36.2 C L Pulse Rate 75 75 Respiratory Rate 16 Blood Pressure 141/67 H Pulse Oximetry 98 98 Oxygen Delivery Room Air Oxygen Flow Rate 09/13/22 08:00 09/13/22 08:30 09/13/22 10:00 Temperature 36.2 C L Pulse Rate 78 90 68 Respiratory Rate 19 Blood Pressure 141/67 H Pulse Oximetry 98 Oxygen Delivery Oxygen Flow Rate 09/13/22 11:28 09/13/22 11:52 09/13/22 12:00 Temperature 36.5 C Pulse Rate 72 76 74 Respiratory Rate 19 Blood Pressure 128/53 L Pulse Oximetry 100 Oxygen Delivery Oxygen Flow Rate 09/13/22 12:00 Temperature Pulse Rate Respiratory Rate Blood Pressure Pulse Oximetry 97 Oxygen Delivery Room Air Oxygen Flow Rate Intake/Output Intake/Output: Intake & Output 09/10/22 09/11/22 09/12/22 09/13/22 23:59 23:59 23:59 23:59 Intake Total 900 200 Output Total 650 Balance 250 200 Meds/Results Medications: Active Medications Generic Name Dose Route Start Last Admin Trade Name Freq PRN Reason Stop Dose Admin Acetaminophen 650 mg 09/12/22 13:09 09/12/22 13:21 Acetaminophen 325 Mg Tablet PO 650 mg Q6H PRN Administration Mild Pain (1-3) or Fever Hydrocodone Bitart/Acetaminophen 1 tab 09/13/22 10:16 09/13/22 10:22 Hydrocodone/Acetaminophen (*Crx) 5-325 Mg Tablet PO 1 tab Q4H PRN Administration Pain Rated 4-6 Amlodipine Besylate 5 mg 09/12/22 09:00 09/13/22 08:29 Amlodipine Besylate 5 Mg Tablet PO 5 mg DAILY ZULEIKA Administration Aspirin 325 mg 09/12/22 09:00 09/13/22 08:28 Aspirin 325 Mg Tablet PO 325 mg DAILY ZULEIKA Administration Atorvastatin Calcium 80 mg 09/13/22 09:00 09/13/22 08:00 Atorvastatin 40 Mg Tablet PO 80 mg DAILY ZULEIKA Administration Bumetanide 2 mg 09/12/22 09:00 09/13/22 08:28 Bumetanide 1 Mg Tablet PO 2 mg BID ZULEIKA Administration Ezeti
[2022-09-13 16:14] LABS: Glucose Point of Care 143 mg/dl (65-105)
[2022-09-13] MEDS: METOPROLOL TARTRATE 50 MG TAB PO (20:31)
[2022-09-14] VITALS (15 sets, daily range): BP systolic 97–143; BP diastolic 52–69; PULSE 66–85; RESP 16–20; TEMP 35.9–37.1; O2SAT 90–96
[2022-09-14 05:22] LABS: Basophils Percent Auto 0.3 % (0.2-1.2); Eosinophils Percent Auto 0.3 % (0-4.4); Hematocrit 43.3 % (37.0-47.0); Hemoglobin 13.7 g/dL (12.0-15.0); Immature Granulocyte Absolute 0.06 K/mm3 (0.00-0.031); Immature Granulocyte Percent A 0.6 % (0-0.5); Lymphocytes Absolute Auto 1.12 K/mm3 (0.9-3.2); Lymphocytes Percent Auto 10.4 % (18.3-44.2); Mean Corpuscular HGB Conc 31.6 g/dl (32-36); Mean Corpuscular Hemoglobin 27.7 pg (26-34); Mean Corpuscular Volume 87.7 fl (80-100); Mean Platelet Volume 9.8 fl (7.4-10.4); Monocytes Absolute Auto 1.1 K/mm3 (0.1-0.6); Monocytes Percent Auto 10.2 % (2.6-8.5); Neutrophils Absolute Auto 8.4 K/mm3 (1.3-6.7); Neutrophils Percent Auto 78.2 % (45.5-73.1); Platelet Count Result 171 k/mm3 (150-375); Red Blood Count 4.94 M/mm3 (4.2-5.4); White Blood Count 10.7 K/mm3 (4.5-10.0)
[2022-09-14 05:32] LABS: Alanine Aminotransferase 121 U/L (6-35); Albumin Level 4.2 g/dL (3.5-5.1); Alkaline Phosphatase 131 U/L (38-126); Anion Gap 7 mmol/L (8-16); Aspartate Amino Transferase 160 U/L (14-36); Bilirubin,Total 8.2 mg/dL (0.2-1.3); Blood Urea Nitrogen 19 mg/dL (7-17); Calcium 8.7 mg/dL (8.4-10.2); Carbon Dioxide 36 mmol/L (22-30); Chloride 89 mmol/L (98-107); Estimated CRCL calculation 41 ml/min; Estimated Glomerular Filt Rate 49; Glucose 138 mg/dL (65-110); Potassium 2.9 mmol/L (3.4-5.0); Sodium 132 mmol/L (137-145)
[2022-09-14] MEDS: ATORVASTATIN 40 MG TABLET 80 MG PO (08:41)
[2022-09-14] MEDS: BUMETANIDE 1 MG TABLET 2 MG PO ×2 (08:41→17:49)
[2022-09-14] MEDS: METOPROLOL TARTRATE 50 MG TAB PO ×2 (08:41→21:02)
[2022-09-14] MEDS: EZETIMIBE 10 MG TABLET PO (08:41)
[2022-09-14] MEDS: MAGNESIUM OXIDE 400 MG TABLET PO (08:41)
[2022-09-14] MEDS: ASPIRIN 325 MG TABLET PO (08:41)
[2022-09-14] MEDS: SPIRONOLACTONE 25 MG TABLET PO (08:41)
[2022-09-14] MEDS: POTASSIUM CHLORIDE 10 MEQ TABLET.ER PO (08:41)
[2022-09-14] MEDS: PANTOPRAZOLE 40 MG TABLET PO (08:42)
[2022-09-14] MEDS: amLODIPine BESYLATE 5 MG TABLET PO (08:42)
[2022-09-14] MEDS: HYDROcodone/acetaminophen (*CRX) 5-325 MG TABLET 1 TAB PO ×2 (08:50→21:05)
[2022-09-14] MEDS: NICOTINE (*PBKC) 21 MG PATCH 1 PATCH TRANSDERM ×2 (08:51→21:30)
[2022-09-14 11:02] LABS: Ammonia < 9 umol/L (9-30)
--- NOTE | 2022-09-14 11:32 | PM.PNCARD ---
Progress Note: A&P Assessment and Plan (1) Acute CVA (cerebrovascular accident): Code(s): I63.9 - Cerebral infarction, unspecified Status: Acute Assessment and Plan: Neurology consulted. Neuro recommending ASA and Plavix (2) Atrial fibrillation: Qualifiers: Atrial fibrillation type: persistent (not longstanding) Qualified Code(s): I48.19 - Other persistent atrial fibrillation Code(s): I48.91 - Unspecified atrial fibrillation Status: Chronic Assessment and Plan: Rate controlled atrial fibrillation. Not on anticoagulation due to GI bleeding in the past and history of falls. Continue with high dose ASA. Continue beta janet for rate control. Outpatient follow up with Dr. Colby Cardiology will sign off please do not hesitate to contact us with any questions (3) NSVT (nonsustained ventricular tachycardia): Code(s): I47.29 - Other ventricular tachycardia Status: Acute Assessment and Plan: Telemetry shows some very brief episodes of nonsustained VT. Most of the episodes labeled as VT on the telemetry are actually artifact, but there are a few very brief episodes of what looks like true NSVT. Echocardiogram this admission shows hyperdynamic LV with LVSF >70%, moderate , mild AR, mild MS, mild MR, mild TR, mild RI. Continue Metoprolol 50mg BID. Keep electrolytes optimized. (4) Chest pain: Code(s): R07.9 - Chest pain, unspecified Status: Acute Assessment and Plan: States she had an episode of substernal chest pain that occurred yesterday morning while sitting in bed. Lasted for about 30 minutes and then self resolved. Has not had recurrence of pain. Has not had chest pain prior to admission or recently in the past few weeks or months. Due to her episode of chest pain, troponin level was checked which was within normal limits. EKG obtained which showed atrial fibrillation without ischemic changes. Echocardiogram this admission shows hyperdynamic LV with LVSF >70%, moderate , mild AR, mild MS, mild MR, mild TR, mild RI. At this time, patient is now asymptomatic. Would monitor for any recurrences of chest pain. Continue with ASA and statin. Increasing her beta janet dose. Would not be a candidate for ischemic evaluation at this time due to her acute stroke. Subjective Date/time seen: 09/14/22 11:32 Cardiology follow up for atrial fibrillation, NSVT, chest pain, She is feeling well this afternoon. Has no complaints. Denying any chest pain, palpitations, shortness of breath. Review of Systems Review of Systems: All systems reviewed & are unremarkable except as noted in HPI and below (HPI) Exam Const: General: comfortable and no acute distress HENMT: Mouth: Yes moist mucous membranes Eyes: General: appearance normal, both eyes and all related structures Sclera: sclerae normal Neck: Neck: supple Resp: Effort & Inspection: normal respiratory effort Auscultation: clear to auscultation bilaterally Cardio: Rhythm: abnormal rhythm irregularly irregular Heart sounds: Murmur heart sound present systolic III/ and at the base Skin: General skin exam: normal color Neuro: Speech: normal speech Extrem: General: normal to inspection Other: no edema Psych: Mental Status: mental status grossly normal Affect: normal affect Objective Data Vital Signs Vital Signs: Vital Signs - 24 hr 09/13/22 11:52 09/13/22 12:00 09/13/22 12:00 Temperature 36.5 C Pulse Rate 76 74 Respiratory Rate 19 Blood Pressure 128/53 L Pulse Oximetry 100 97 Oxygen Delivery Room Air 09/13/22 14:00 09/13/22 16:00 09/13/22 17:50 Temperature 36.4 C Pulse Rate 76 70 70 Respiratory Rate 18 Blood Pressure 122/54 L Pulse Oximetry 93 Oxygen Delivery 09/13/22 18:00 09/13/22 20:00 09/13/22 20:31 Temperature 36.8 C Pulse Rate 81 72 80 Respiratory Rate 16 Blood Pressure 121/49 L Pulse Oximetry 92 Ox
--- NOTE | 2022-09-14 11:58 | PCOTNOTE ---
Attempted to see pt for Occupational therapy treatment. Pt is currently off the floor for a ultrasound per staff. Will continue per POC duration/frequency.
--- NOTE | 2022-09-14 12:46 | PCOTNOTE ---
Patient refused treatment this session. Patient stated she had testing earlier, not up to it today.
[2022-09-14 13:38] LABS: Bilirubin Direct 4.1 mg/dL (0-0.3); Bilirubin Indirect 2.1 mg/dL (0-1.1); Bilirubin,Total 7.8 mg/dL (0.2-1.3)
--- NOTE | 2022-09-14 14:51 | WPDGICN ---
Assessment and Plan Assessment and plan (1) Elevated LFTs: Code(s): R79.89 - Other specified abnormal findings of blood chemistry Status: Acute Assessment and Plan: Patient with elevated LFTs after admission hospital for acute CVA. She is found to have paroxysmal tachycardia presumed to be atrial fibrillation. Abrupt elevation of LFTs is of uncertain nature. Ultrasound of the gallbladder today reveals changes consistent with portal hypertension and cirrhosis. Etiology unclear is presumed to be cryptogenic. She also has gallstones. It is uncertain if they are asymptomatic. MRCP will be ordered to exclude obstruction to the bile duct tree. (2) Cirrhosis: Code(s): K74.60 - Unspecified cirrhosis of liver Status: Acute Assessment and Plan: Patient known to have cirrhosis for several years. Currently felt to be cryptogenic etiology unclear. Surveillance imaging advised at 1 year intervals. Most recently followed by Dr. Linares in the GI office. Anticipate follow-up annual visits post discharge. (3) AVM (arteriovenous malformation) of stomach, acquired: Code(s): K31.819 - Angiodysplasia of stomach and duodenum without bleeding Status: Acute Assessment and Plan: Patient has had GI bleeding in the past from angiodysplasia of the stomach. No known history of esophageal varices by recent exams. (4) Atrial fibrillation: Qualifiers: Atrial fibrillation type: persistent (not longstanding) Qualified Code(s): I48.19 - Other persistent atrial fibrillation Code(s): I48.91 - Unspecified atrial fibrillation Status: Chronic (5) Acute CVA (cerebrovascular accident): Code(s): I63.9 - Cerebral infarction, unspecified Status: Acute (6) NSVT (nonsustained ventricular tachycardia): Code(s): I47.29 - Other ventricular tachycardia Status: Acute GI Consult Note Consult date/time: 09/14/22 14:51 Reason for consult: Elevated LFTs. HPI: Nisha Lu is a 71 year old female I am asked to see at the request of the hospitalist service because of elevated liver function test. Patient in usual state of health till 09/11/2022. Patient developed hemiparesis with arm weakness was brought to the emergency room found to have an acute CVA. Patient did have atrial fibrillation is there is a question of nonsustained V-tach. Patient's arm weakness is improved. Currently tolerating regular diet. After admission hospital liver function test been noted to rise. For this reason we are consulted. Patient denies any prior known diagnosis of liver disease. She denies any exposure to hepatitis. She has never previously known to have gallstones stones. Review of records reveal that in 2018 was found to have cirrhosis on previous imaging studies she has most recently been followed by Dr. Tavares. She has had several endoscopies with no evidence of varices but has had gastric AVMs. Previous colonoscopies have shown diverticular disease and may be a distant history of a benign polyp. Currently patient denies any abdominal pain. Review of Systems Review of Systems: Review of systems noncontributory. FORMERLY [facility] Past Medical History Medical History Acute blood loss anemia Acute renal insufficiency Chronic renal failure Anemia Aortic valve stenosis Atrial fibrillation Paroxysmal AVM (arteriovenous malformation) of stomach, acquired Basal cell carcinoma Cirrhosis noted by CT scan in 2018 with portal venous hypertension Colon, diverticulosis COPD (chronic obstructive pulmonary disease) Diastolic congestive heart failure Encounter for removal of skin lesion H/O: GI bleed 2018 History of obstructive sleep apnea Intolerant of the CPAP Hypercholesterolemia Hyperlipidemia Hypertensive heart disease Moderate aortic valve stenosis Paroxysmal atrial fibrillation Pulmonary hypertension Seizure Type
[2022-09-14 16:35] LABS: Glucose Point of Care 141 mg/dl (65-105)
--- NOTE | 2022-09-14 17:20 | PM.IMPN ---
Progress Note: A&P Assessment and Plan (1) Acute CVA (cerebrovascular accident): Code(s): I63.9 - Cerebral infarction, unspecified Status: Acute Assessment and Plan: PT/OT evaluation, increase lipitor to 80 mg, aspirin, Plavix Appreciate neurology consultation, echo w/bubble pending MRI brain 09/12 showed acute CVA medial right temporal occipital region extending into the posterior right basal ganglia 09/14/2022 interval history: paresent with CVA and placed on aspirin and Statin, patient clinical symptoms are stable, also patient has A. Fib seen by infection prevention practitioner recommended continue high dose aspirin, and BB for rate control and patient remains clinically stable, however patient appears icteric and LFT have increased with total bili of 8.2 and abdominal US is suspicious for gallsones but not acute cholecystitis, will consult GI for further recommendation. her is present in the room, will continue to monitor. (2) Hyperlipidemia: Code(s): E78.5 - Hyperlipidemia, unspecified Status: Chronic Assessment and Plan: Continue with Zetia and Lipitor (3) Diastolic congestive heart failure: Qualifiers: Heart failure chronicity: chronic Qualified Code(s): I50.32 - Chronic diastolic (congestive) heart failure Code(s): I50.30 - Unspecified diastolic (congestive) heart failure Status: Chronic Assessment and Plan: Continue metoprolol Continue spironolactone Continue Bumex (4) COPD (chronic obstructive pulmonary disease): Code(s): J44.9 - Chronic obstructive pulmonary disease, unspecified Status: Chronic Assessment and Plan: P.r.n. Xopenex (5) Atrial fibrillation: Qualifiers: Atrial fibrillation type: persistent (not longstanding) Qualified Code(s): I48.19 - Other persistent atrial fibrillation Code(s): I48.91 - Unspecified atrial fibrillation Status: Chronic Assessment and Plan: Continue with aspirin and metoprolol (6) Arrhythmia: Code(s): I49.9 - Cardiac arrhythmia, unspecified Status: Acute Assessment and Plan: Vtach with abnormal T waves noted on tele, EKG pending, check mag, phos, trop, cardio consult pending Plan DVT prophylaxis with SCDs GI prophylaxis with PPI Code status full code Subjective Date/time seen: 09/14/22 17:20 Fall HPI- Narrative: This is a 71-year-old female patient who has a history of atrial fibrillation and diabetes type 2.? The patient came to the emergency room with complaint of left-sided weakness and right gaze.? The patient stated that she slid out of bed this morning before 8:00 a.m. and called for lift assistance via EMS.? The patient was then transported to the emergency room for further evaluation.? The patient's speech is clear.? She has no facial droop but she has left-sided neglect.? Her left upper arm and left lower extremity are flaccid.? White counts 11.1 her glucose was 147.? Troponin 0.039.? AFib was noted on EKG.? Head and neck CTA read as a following1. Infarct in right temporal occipital region, likely acute or subacute. 2. 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 3. 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 4. Moderate nonspecific cerebral white matter disease, which likely represents chronic small vessel ischemic disease. 5. Moderate stenosis of intracranial internal carotid arteries. 6. 64% stenosis of the proximal right internal carotid artery relative to normal distal artery lumen diameter (NASCET criteria). 7. 12% stenosis of the proximal left internal carotid artery relative to normal distal artery lumen diameter. 8. Moderate stenosis of origin of right vertebral artery. Severe stenosis of origin of left vertebral artery. Hip and pelvis x-ray mild osteoarthritis of the hips. Head CT read as the following1. Infarct in the right temporal occipital region,
[2022-09-14] MEDS: POTASSIUM CHLORIDE 20 MEQ TABLET 40 MEQ PO (17:49)
[2022-09-14 19:41] LABS: Glucose Point of Care 161 mg/dl (65-105)
[2022-09-15] VITALS (19 sets, daily range): BP systolic 120–147; BP diastolic 52–64; PULSE 65–95; RESP 18–20; TEMP 36.1–36.5; O2SAT 95–100
[2022-09-15 04:38] LABS: Basophils Percent Auto 0.2 % (0.2-1.2); Eosinophils Percent Auto 0.4 % (0-4.4); Hematocrit 43.1 % (37.0-47.0); Hemoglobin 13.9 g/dL (12.0-15.0); Immature Granulocyte Absolute 0.04 K/mm3 (0.00-0.031); Immature Granulocyte Percent A 0.4 % (0-0.5); Lymphocytes Absolute Auto 1.25 K/mm3 (0.9-3.2); Lymphocytes Percent Auto 13.6 % (18.3-44.2); Mean Corpuscular HGB Conc 32.3 g/dl (32-36); Mean Corpuscular Hemoglobin 28.1 pg (26-34); Mean Corpuscular Volume 87.2 fl (80-100); Mean Platelet Volume 10.4 fl (7.4-10.4); Monocytes Absolute Auto 0.9 K/mm3 (0.1-0.6); Monocytes Percent Auto 9.7 % (2.6-8.5); Neutrophils Absolute Auto 6.9 K/mm3 (1.3-6.7); Neutrophils Percent Auto 75.7 % (45.5-73.1); Platelet Count Result 181 k/mm3 (150-375); Red Blood Count 4.94 M/mm3 (4.2-5.4); Red Cell Distribution Width 14.5 % (11.5-14.5); White Blood Count 9.2 K/mm3 (4.5-10.0)
[2022-09-15 05:05] LABS: Alanine Aminotransferase 127 U/L (6-35); Alkaline Phosphatase 152 U/L (38-126); Anion Gap 5 mmol/L (8-16); Aspartate Amino Transferase 103 U/L (14-36); Blood Urea Nitrogen 25 mg/dL (7-17); Calcium 8.5 mg/dL (8.4-10.2); Carbon Dioxide 36 mmol/L (22-30); Chloride 93 mmol/L (98-107); Estimated CRCL calculation 32 ml/min; Estimated Glomerular Filt Rate 37; Glucose 140 mg/dL (65-110); Magnesium 1.9 mg/dL (1.6-2.3); Potassium 3.2 mmol/L (3.4-5.0); Sodium 134 mmol/L (137-145)
[2022-09-15] MEDS: ASPIRIN 325 MG TABLET PO (08:40)
[2022-09-15] MEDS: EZETIMIBE 10 MG TABLET PO (08:40)
[2022-09-15] MEDS: SPIRONOLACTONE 25 MG TABLET PO (08:40)
[2022-09-15] MEDS: POTASSIUM CHLORIDE 10 MEQ TABLET.ER PO (08:40)
[2022-09-15] MEDS: BUMETANIDE 1 MG TABLET 2 MG PO ×2 (08:40→17:50)
[2022-09-15] MEDS: PANTOPRAZOLE 40 MG TABLET PO (08:40)
--- NOTE | 2022-09-15 08:40 | WPDGIPROGNO ---
Progress Note: A&P Assessment and Plan (1) Elevated LFTs: Code(s): R79.89 - Other specified abnormal findings of blood chemistry Status: Acute Assessment and Plan: Patient noted to have significant increase in LFTs after admission the hospital. Patient does have mild right upper quadrant tenderness on exam this morning. CT scan imaging reveals she has cirrhosis which apparently was diagnosed several years ago. Etiology unknown may be cryptogenic. She also has gallstones now identified which potentially can contribute to the elevated LFTs. MRCP to be done today. Results pending at this time. Currently monitor LFTs. Further workup pending results of MRCP. (2) Gallstones: Code(s): K80.20 - Calculus of gallbladder without cholecystitis without obstruction Status: Acute Assessment and Plan: Patient has gallstones on imaging studies. With new elevation of LFTs and there is concern she may have passed a common bile duct gallstone. MRCP results pending. (3) Cirrhosis: Code(s): K74.60 - Unspecified cirrhosis of liver Status: Acute Assessment and Plan: Patient with cryptogenic cirrhosis of liver. Currently monitored by Dr. Linares in the GI office. He is out of town will return Saturday. (4) AVM (arteriovenous malformation) of stomach, acquired: Code(s): K31.819 - Angiodysplasia of stomach and duodenum without bleeding Status: Acute Assessment and Plan: Patient has a prior history of AVMs of the stomach. Not felt be active at present. (5) NSVT (nonsustained ventricular tachycardia): Code(s): I47.29 - Other ventricular tachycardia Status: Acute Assessment and Plan: Cardiology following for cardiac dysrhythmia. Workup in progress. (6) Acute CVA (cerebrovascular accident): Code(s): I63.9 - Cerebral infarction, unspecified Status: Acute Assessment and Plan: Patient admitted with CVA and hemiparesis. Her weakness appears to be improving with conservative management. 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 Offers no specific complaints. Not very clear under past medical history. Tolerating diet without complaints today. Review of Systems Review of Systems: Review of systems noncontributory. Exam Narrative: Physical exam reveals patient be alert. Vital signs stable. HEENT exam reveals she may have some mild icterus. Lungs are clear. Heart without murmur. Abdomen obese. Bowel sounds are present soft some tenderness right upper quadrant on deep palpation. Objective Data Vital Signs Vital Signs: Vital Signs - 24 hr 09/14/22 08:41 09/14/22 10:00 09/14/22 11:24 Temperature 98.2 F Pulse Rate 71 67 69 Respiratory Rate 16 Blood Pressure 97/52 L Pulse Oximetry 94 Oxygen Delivery 09/14/22 12:00 09/14/22 15:48 09/14/22 14:00 Temperature 96.6 F L Pulse Rate 71 75 69 Respiratory Rate 18 Blood Pressure 134/59 L Pulse Oximetry 96 Oxygen Delivery 09/14/22 16:00 09/14/22 18:00 09/14/22 20:00 Temperature 97.7 F Pulse Rate 78 68 81 Respiratory Rate 18 Blood Pressure 143/69 H Pulse Oximetry 95 Oxygen Delivery 09/14/22 21:02 09/14/22 20:00 09/14/22 20:00 Temperature Pulse Rate 79 73 Respiratory Rate Blood Pressure Pulse Oximetry Oxygen Delivery Room Air 09/14/22 23:35 09/15/22 02:49 09/14/22 22:00 Temperature 97.5 F L 97.1 F L Pulse Rate 66 69 68 Respiratory Rate 18 18 Blood Pressure 143/69 H 147/62 H Pulse Oxime
[2022-09-15] MEDS: amLODIPine BESYLATE 5 MG TABLET PO (08:41)
[2022-09-15] MEDS: METOPROLOL TARTRATE 50 MG TAB PO ×2 (08:41→20:07)
[2022-09-15] MEDS: MAGNESIUM OXIDE 400 MG TABLET PO (08:42)
[2022-09-15] MEDS: ATORVASTATIN 40 MG TABLET 80 MG PO (08:42)
[2022-09-15 08:48] LABS: Glucose Point of Care 155 mg/dl (65-105)
[2022-09-15] MEDS: POTASSIUM CHLORIDE 20 MEQ TABLET 40 MEQ PO (11:30)
[2022-09-15] MEDS: ACETAMINOPHEN 325 MG TABLET 650 MG PO ×2 (11:30→17:49)
[2022-09-15 12:17] LABS: Glucose Point of Care 162 mg/dl (65-105)
--- NOTE | 2022-09-15 13:15 | PCOTNOTE ---
Attempted to see pt for Occupational Therapy treatment. Pt is sleeping upon arrival of therapist. Pt declined to participate in therapy at this time due to wanting to continue sleeping.
--- NOTE | 2022-09-15 15:22 | PM.IMPN ---
Progress Note: A&P Assessment and Plan (1) Acute CVA (cerebrovascular accident): Code(s): I63.9 - Cerebral infarction, unspecified Status: Acute Assessment and Plan: PT/OT evaluation, increase lipitor to 80 mg, aspirin, Plavix Appreciate neurology consultation, echo w/bubble pending MRI brain 09/12 showed acute CVA medial right temporal occipital region extending into the posterior right basal ganglia 09/15/2022 interval history: paresent with CVA and placed on aspirin and Statin, patient clinical symptoms are stable, also patient has A. Fib seen by steam shovel operating engineer recommended continue high dose aspirin, and BB for rate control and patient remains clinically stable, however patient appears icteric and LFT were increased with total bili of 8.2 and abdominal US is suspicious for gallsones but not acute cholecystitis, today patient LFT are trending down and her total bili is 5, patient was seen by GI to further evaluate ordered MRCP which is pending, patient clinical symptoms are improving will continue to monitor (2) Hyperlipidemia: Code(s): E78.5 - Hyperlipidemia, unspecified Status: Chronic Assessment and Plan: Continue with Zetia and Lipitor (3) Diastolic congestive heart failure: Qualifiers: Heart failure chronicity: chronic Qualified Code(s): I50.32 - Chronic diastolic (congestive) heart failure Code(s): I50.30 - Unspecified diastolic (congestive) heart failure Status: Chronic Assessment and Plan: Continue metoprolol Continue spironolactone Continue Bumex (4) COPD (chronic obstructive pulmonary disease): Code(s): J44.9 - Chronic obstructive pulmonary disease, unspecified Status: Chronic Assessment and Plan: P.r.n. Xopenex (5) Atrial fibrillation: Qualifiers: Atrial fibrillation type: persistent (not longstanding) Qualified Code(s): I48.19 - Other persistent atrial fibrillation Code(s): I48.91 - Unspecified atrial fibrillation Status: Chronic Assessment and Plan: Continue with aspirin and metoprolol (6) Arrhythmia: Code(s): I49.9 - Cardiac arrhythmia, unspecified Status: Acute Assessment and Plan: Vtach with abnormal T waves noted on tele, EKG pending, check mag, phos, trop, cardio consult pending Plan DVT prophylaxis with SCDs GI prophylaxis with PPI Code status full code Subjective Date/time seen: 09/15/22 15:22 PT/OT evaluation, increase lipitor to 80 mg, aspirin, Plavix Appreciate neurology consultation, echo w/bubble pending MRI brain 09/12 showed acute CVA medial right temporal occipital region extending into the posterior right basal ganglia 09/15/2022 interval history: paresent with CVA and placed on aspirin and Statin, patient clinical symptoms are stable, also patient has A. Fib seen by steam shovel operating engineer recommended continue high dose aspirin, and BB for rate control and patient remains clinically stable, however patient appears icteric and LFT were increased with total bili of 8.2 and abdominal US is suspicious for gallsones but not acute cholecystitis, today patient LFT are trending down and her total bili is 5, patient was seen by GI to further evaluate ordered MRCP which is pending, patient clinical symptoms are improving will continue to monitor Review of Systems Review of Systems: All systems reviewed & are unremarkable except as noted in HPI and below Exam Narrative: Patient is comfortable, NAD HEENT: eyes are clear and icteric LUNGS: Normal respiratory effort ABD: Nondistended Lower extremities: no edema SKIN: jaundiced Neuro: grossly intact. Objective Data Vital Signs Vital Signs: Vital Signs - 24 hr 09/14/22 15:48 09/14/22 16:00 09/14/22 18:00 Temperature 96.6 F L Pulse Rate 75 78 68 Respiratory Rate 18 Blood Pressure 134/59 L Pulse Oximetry 96 Oxygen Delivery 09/14/22 20:00 09/14/22 21:02
[2022-09-15 16:00] LABS: Glucose Point of Care 181 mg/dl (65-105)
[2022-09-15] MEDS: HYDROcodone/acetaminophen (*CRX) 5-325 MG TABLET 1 TAB PO (19:47)
[2022-09-15 20:05] LABS: Glucose Point of Care 223 mg/dl (65-105)
[2022-09-16] VITALS (18 sets, daily range): BP systolic 122–150; BP diastolic 53–79; PULSE 62–87; RESP 18–22; TEMP 35.9–36.5; O2SAT 94–100
[2022-09-16 05:00] LABS: Basophils Percent Auto 0.3 % (0.2-1.2); Eosinophils Percent Auto 0.3 % (0-4.4); Hematocrit 43.7 % (37.0-47.0); Immature Granulocyte Absolute 0.02 K/mm3 (0.00-0.031); Immature Granulocyte Percent A 0.2 % (0-0.5); Lymphocytes Absolute Auto 0.73 K/mm3 (0.9-3.2); Lymphocytes Percent Auto 7.5 % (18.3-44.2); Mean Corpuscular Hemoglobin 27.9 pg (26-34); Mean Corpuscular Volume 87.1 fl (80-100); Mean Platelet Volume 10.6 fl (7.4-10.4); Monocytes Absolute Auto 0.9 K/mm3 (0.1-0.6); Neutrophils Percent Auto 82.7 % (45.5-73.1); Platelet Count Result 194 k/mm3 (150-375); Red Blood Count 5.02 M/mm3 (4.2-5.4); Red Cell Distribution Width 14.6 % (11.5-14.5); White Blood Count 9.7 K/mm3 (4.5-10.0)
[2022-09-16 05:19] LABS: Alanine Aminotransferase 121 U/L (6-35); Albumin Level 4.1 g/dL (3.5-5.1); Alkaline Phosphatase 209 U/L (38-126); Anion Gap 4 mmol/L (8-16); Aspartate Amino Transferase 112 U/L (14-36); Bilirubin,Total 4.8 mg/dL (0.2-1.3); Blood Urea Nitrogen 28 mg/dL (7-17); Calcium 8.7 mg/dL (8.4-10.2); Carbon Dioxide 35 mmol/L (22-30); Chloride 95 mmol/L (98-107); Estimated CRCL calculation 37 ml/min; Estimated Glomerular Filt Rate 44; Glucose 167 mg/dL (65-110); Magnesium 2.1 mg/dL (1.6-2.3); Potassium 3.6 mmol/L (3.4-5.0); Sodium 134 mmol/L (137-145)
[2022-09-16 08:47] LABS: Glucose Point of Care 188 mg/dl (65-105)
[2022-09-16] MEDS: PANTOPRAZOLE 40 MG TABLET PO (09:21)
[2022-09-16] MEDS: amLODIPine BESYLATE 5 MG TABLET PO (09:22)
[2022-09-16] MEDS: BUMETANIDE 1 MG TABLET 2 MG PO ×2 (09:22→16:24)
[2022-09-16] MEDS: EZETIMIBE 10 MG TABLET PO (09:22)
[2022-09-16] MEDS: METOPROLOL TARTRATE 50 MG TAB PO ×2 (09:22→22:15)
[2022-09-16] MEDS: MAGNESIUM OXIDE 400 MG TABLET PO (09:22)
[2022-09-16] MEDS: POTASSIUM CHLORIDE 10 MEQ TABLET.ER PO (09:23)
[2022-09-16] MEDS: ATORVASTATIN 40 MG TABLET 80 MG PO (09:23)
[2022-09-16] MEDS: SPIRONOLACTONE 25 MG TABLET PO (09:23)
[2022-09-16] MEDS: ASPIRIN 325 MG TABLET PO (09:23)
[2022-09-16] MEDS: NICOTINE (*PBKC) 21 MG PATCH 1 PATCH TRANSDERM (10:33)
--- NOTE | 2022-09-16 10:43 | WPDNEUROPN ---
Subjective Date/time seen: 09/16/22 10:43 Interval history: follow-up remains awake alert and follows instructions very well with all the medical problem as documented previously but there is no indication for any surgical intervention, awake alert follows instructions very well his speech not dysphasic not dysarthric and neurological is stable but will have the follow-up with the biofuels plant manager as an outpatient Objective Data Vital Signs Vital Signs: Vital Signs - 24 hr 09/15/22 12:00 09/15/22 12:00 09/15/22 12:37 Temperature 36.2 C L Pulse Rate 73 65 Respiratory Rate 20 Blood Pressure 123/52 L Pulse Oximetry 96 Oxygen Delivery Room Air 09/15/22 14:00 09/15/22 16:25 09/15/22 16:00 Temperature 36.4 C Pulse Rate 69 71 78 Respiratory Rate 18 Blood Pressure 120/63 Pulse Oximetry 96 Oxygen Delivery 09/15/22 16:00 09/15/22 18:00 09/15/22 20:07 Temperature Pulse Rate 71 70 Respiratory Rate Blood Pressure Pulse Oximetry Oxygen Delivery Room Air 09/15/22 20:00 09/15/22 20:00 09/15/22 20:00 Temperature 36.3 C L Pulse Rate 76 79 Respiratory Rate 18 Blood Pressure 139/63 Pulse Oximetry 100 Oxygen Delivery Room Air 09/15/22 22:00 09/15/22 23:14 09/16/22 00:00 Temperature 36.5 C Pulse Rate 68 71 62 Respiratory Rate 18 Blood Pressure 134/64 Pulse Oximetry 100 Oxygen Delivery 09/16/22 00:00 09/16/22 04:00 09/16/22 02:00 Temperature 36.3 C L Pulse Rate 71 76 Respiratory Rate 18 Blood Pressure 146/60 H Pulse Oximetry 96 Oxygen Delivery Room Air 09/16/22 04:00 09/16/22 04:00 09/16/22 06:00 Temperature Pulse Rate 71 82 Respiratory Rate Blood Pressure Pulse Oximetry Oxygen Delivery Room Air 09/16/22 07:42 09/16/22 08:00 09/16/22 09:22 Temperature 36.3 C L Pulse Rate 71 73 79 Respiratory Rate 20 Blood Pressure 138/59 L Pulse Oximetry 96 Oxygen Delivery 09/16/22 08:00 Temperature Pulse Rate 79 Respiratory Rate 20 Blood Pressure Pulse Oximetry 96 Oxygen Delivery Room Air Intake/Output Intake/Output: Intake & Output 09/13/22 09/14/22 09/15/22 09/16/22 23:59 23:59 23:59 23:59 Intake Total 680 1236 785 0 Balance 680 1236 785 0 Meds/Results Medications: Active Medications Generic Name Dose Route Start Last Admin Trade Name Freq PRN Reason Stop Dose Admin Acetaminophen 650 mg 09/12/22 13:09 09/15/22 17:49 Acetaminophen 325 Mg Tablet PO 650 mg Q6H PRN Administration Mild Pain (1-3) or Fever Hydrocodone Bitart/Acetaminophen 1 tab 09/13/22 10:16 09/15/22 19:47 Hydrocodone/Acetaminophen (*Crx) 5-325 Mg Tablet PO 1 tab Q4H PRN Administration Pain Rated 4-6 Amlodipine Besylate 5 mg 09/12/22 09:00 09/16/22 09:22 Amlodipine Besylate 5 Mg Tablet PO 5 mg DAILY ZULEIKA Administration Aspirin 325 mg 09/12/22 09:00 09/16/22 09:23 Aspirin 325 Mg Tablet PO 325 mg DAILY ZULEIKA Administration Atorvastatin Calcium 80 mg 09/13/22 09:00 09/16/22 09:23 Atorvastatin 40 Mg Tablet PO 80 mg DAILY ZULEIKA Administration Bumetanide 2 mg 09/12/22 09:00 09/16/22 09:22 Bumetanide 1 Mg Tablet PO 2 mg BID ZULEIKA Administration Ezetimibe 10 mg 09/12/22 09:00 09/16/22 09:22 Ezetimibe 10 Mg Tablet PO 10 mg DAILY ZULEIKA Administration Magnesium Oxide 400 mg 09/12/22 09:00 09/16/22 09:22 Magnesium Oxide 400 Mg Tablet PO 400 mg DAILY ZULEIKA Administration Metoprolol Tartrate 50 mg 09/13/22 21:00 09/16/22 09:22 Metoprolol Tartrate 50 Mg Tab PO 50 mg Q12HR ZULEIKA Administration Nicotine 1 patch 09/12/22 18:05 09/16/22 10:33 Nicotine (*Pbkc) 21 Mg Patch TRANSDERM 1 patch QAM ZULEIKA Administration Ondansetron HCl 4 mg 09/11/22 17:38 09/13/22 06:11 Ondansetron Inj 4 Mg/2 Ml Vial IV PUSH 4 mg Q4H PRN Administration Nausea And Vomiting Pantoprazole Sodium 40 mg 09/12/22 09:00 09/16/22 0
[2022-09-16] MEDS: SUCRALFATE SUSP 100 MG/ML 10 ML UDC 1000 MG PO ×3 (11:29→22:16)
[2022-09-16 11:49] LABS: Glucose Point of Care 177 mg/dl (65-105)
--- NOTE | 2022-09-16 13:15 | PM.IMPN ---
Progress Note: A&P Assessment and Plan (1) Acute CVA (cerebrovascular accident): Code(s): I63.9 - Cerebral infarction, unspecified Status: Acute Assessment and Plan: PT/OT evaluation, increase lipitor to 80 mg, aspirin, Plavix Appreciate neurology consultation, echo w/bubble pending MRI brain 09/12 showed acute CVA medial right temporal occipital region extending into the posterior right basal ganglia 09/16/2022 interval history: paresent with CVA and placed on aspirin and Statin, patient clinical symptoms are stable, also patient has A. Fib seen by interactive multimedia designer recommended continue high dose aspirin, and BB for rate control and patient remains clinically stable, however patient appears icteric and LFT were increased with total bili of 8.2 and abdominal US is suspicious for gallsones but not acute cholecystitis, MRCP showed 7 mm stone in the common bile duct with common duct dilation, patient will need ERCP, and acute cholecystitis, will consult surgery service, today patient LFT are trending down and her total bili is 4.8, patient clinical symptoms are improving will continue to monitor (2) Hyperlipidemia: Code(s): E78.5 - Hyperlipidemia, unspecified Status: Chronic Assessment and Plan: Continue with Zetia and Lipitor (3) Diastolic congestive heart failure: Qualifiers: Heart failure chronicity: chronic Qualified Code(s): I50.32 - Chronic diastolic (congestive) heart failure Code(s): I50.30 - Unspecified diastolic (congestive) heart failure Status: Chronic Assessment and Plan: Continue metoprolol Continue spironolactone Continue Bumex (4) COPD (chronic obstructive pulmonary disease): Code(s): J44.9 - Chronic obstructive pulmonary disease, unspecified Status: Chronic Assessment and Plan: P.r.n. Xopenex (5) Atrial fibrillation: Qualifiers: Atrial fibrillation type: persistent (not longstanding) Qualified Code(s): I48.19 - Other persistent atrial fibrillation Code(s): I48.91 - Unspecified atrial fibrillation Status: Chronic Assessment and Plan: Continue with aspirin and metoprolol (6) Arrhythmia: Code(s): I49.9 - Cardiac arrhythmia, unspecified Status: Acute Assessment and Plan: Vtach with abnormal T waves noted on tele, EKG pending, check mag, phos, trop, cardio consult pending Plan DVT prophylaxis with SCDs GI prophylaxis with PPI Code status full code Subjective Date/time seen: 09/16/22 13:15 PT/OT evaluation, increase lipitor to 80 mg, aspirin, Plavix Appreciate neurology consultation, echo w/bubble pending MRI brain 09/12 showed acute CVA medial right temporal occipital region extending into the posterior right basal ganglia 09/16/2022 interval history: paresent with CVA and placed on aspirin and Statin, patient clinical symptoms are stable, also patient has A. Fib seen by interactive multimedia designer recommended continue high dose aspirin, and BB for rate control and patient remains clinically stable, however patient appears icteric and LFT were increased with total bili of 8.2 and abdominal US is suspicious for gallsones but not acute cholecystitis, MRCP showed 7 mm stone in the common bile duct with common duct dilation, patient will need ERCP, and acute cholecystitis, will consult surgery service, today patient LFT are trending down and her total bili is 4.8, patient clinical symptoms are improving will continue to monitor Review of Systems Review of Systems: All systems reviewed & are unremarkable except as noted in HPI and below Exam Narrative: Patient is comfortable, NAD HEENT: eyes are clear and icteric LUNGS: Normal respiratory effort ABD: Nondistended Lower extremities: no edema SKIN: jaundiced Neuro: grossly intact. Objective Data Vital Signs Vital Signs: Vital Signs - 24 hr 09/15/22 14:00 09/15/22 16:25 09/15/22 16:00 Te
[2022-09-16 16:25] LABS: Glucose Point of Care 166 mg/dl (65-105)
[2022-09-16 20:44] LABS: Glucose Point of Care 174 mg/dl (65-105)
[2022-09-16] MEDS: DOCUSATE SODIUM 100 MG CAPSULE PO (22:15)
[2022-09-16] MEDS: HYDROcodone/acetaminophen (*CRX) 5-325 MG TABLET 1 TAB PO (22:18)
[2022-09-17] VITALS (25 sets, daily range): BP systolic 118–159; BP diastolic 41–93; PULSE 63–86; RESP 14–22; TEMP 35.9–36.8; O2SAT 92–100
[2022-09-17 05:17] LABS: Basophils Percent Auto 0.2 % (0.2-1.2); Eosinophils Percent Auto 0.2 % (0-4.4); Hemoglobin 14.6 g/dL (12.0-15.0); Immature Granulocyte Absolute 0.04 K/mm3 (0.00-0.031); Immature Granulocyte Percent A 0.4 % (0-0.5); Lymphocytes Absolute Auto 0.78 K/mm3 (0.9-3.2); Lymphocytes Percent Auto 8.2 % (18.3-44.2); Mean Corpuscular HGB Conc 32.4 g/dl (32-36); Mean Corpuscular Hemoglobin 27.8 pg (26-34); Mean Corpuscular Volume 85.7 fl (80-100); Mean Platelet Volume 10.6 fl (7.4-10.4); Monocytes Absolute Auto 0.8 K/mm3 (0.1-0.6); Monocytes Percent Auto 8.4 % (2.6-8.5); Neutrophils Absolute Auto 7.8 K/mm3 (1.3-6.7); Neutrophils Percent Auto 82.6 % (45.5-73.1); Platelet Count Result 203 k/mm3 (150-375); Red Blood Count 5.25 M/mm3 (4.2-5.4); Red Cell Distribution Width 14.6 % (11.5-14.5); White Blood Count 9.5 K/mm3 (4.5-10.0)
[2022-09-17 05:49] LABS: Hemoglobin A1C 6.5 % (<5.7)
[2022-09-17 05:50] LABS: Alanine Aminotransferase 184 U/L (6-35); Albumin Level 4.2 g/dL (3.5-5.1); Alkaline Phosphatase 357 U/L (38-126); Anion Gap 7 mmol/L (8-16); Aspartate Amino Transferase 218 U/L (14-36); Bilirubin,Total 6.8 mg/dL (0.2-1.3); Blood Urea Nitrogen 24 mg/dL (7-17); Calcium 8.7 mg/dL (8.4-10.2); Carbon Dioxide 37 mmol/L (22-30); Chloride 89 mmol/L (98-107); Estimated CRCL calculation 35 ml/min; Estimated Glomerular Filt Rate 40; Glucose 167 mg/dL (65-110); Potassium 3.5 mmol/L (3.4-5.0); Sodium 133 mmol/L (137-145)
[2022-09-17 06:03] LABS: Magnesium 2.2 mg/dL (1.6-2.3)
[2022-09-17 06:35] LABS: Appearance Urine Clear (Clear); Bacteria Urine None Seen /hpf; Bilirubin Urine 1+ (Negative); Blood Urine Trace (Negative); Color Urine Dark Yellow (Yellow); Glucose Urine UA Negative (Negative); Ketones Urine Negative (Negative); Leukocyte Esterase Ur Negative LEU/UL (NEGATIVE); Nitrate Urine Negative (Negative); Non Pathogenic Casts 0-2; Protein Urine 1+ mg/dL (Negative); RBC Urine 0-2 /hpf (0-2); Specific Grav Ur 1.011 (1.001-1.035); Squamous Epithelial Cell Urine None seen /hpf (Few); WBC Urine 0-5 /hpf (0-3)
[2022-09-17 06:49] LABS: Add Urine Microscopic? YES
--- NOTE | 2022-09-17 07:15 | WPDGIPROGNO ---
Progress Note: A&P Assessment and Plan (1) Elevated LFTs: Code(s): R79.89 - Other specified abnormal findings of blood chemistry Status: Acute Assessment and Plan: Patient noted to have elevated LFTs after admission hospital for CVA. These have fluctuated but begun to increase again overnight. Patient does have some modest right upper quadrant abdominal pain. Imaging studies including MRCP revealed gallstones and choledocholithiasis. Patient will require ERCP for extraction. Will attempt this later today. Hold anticoagulation in anticipation of this. (2) Choledocholithiasis: Code(s): K80.50 - Calculus of bile duct without cholangitis or cholecystitis without obstruction Status: Acute (3) Gallstones: Code(s): K80.20 - Calculus of gallbladder without cholecystitis without obstruction Status: Acute (4) Acute CVA (cerebrovascular accident): Code(s): I63.9 - Cerebral infarction, unspecified Status: Acute (5) Arrhythmia: Code(s): I49.9 - Cardiac arrhythmia, unspecified Status: Acute Subjective Date/time seen: 09/17/22 07:15 Interval history: Patient alert. Comfortable this morning. She denies any pain but on palpation has right upper quadrant discomfort. She is afebrile. Her initial arm weakness appears to be improved. Review of Systems Review of Systems: Review of systems noncontributory. Exam Narrative: Physical exam reveals patient be alert. Vital signs stable. HEENT exam reveals some icterus. Lungs are clear. Heart without murmur. Abdomen bowel sounds present soft she is tender in the right upper quadrant on deep palpation. Objective Data Vital Signs Vital Signs: Vital Signs - 24 hr 09/16/22 07:42 09/16/22 08:00 09/16/22 09:22 Temperature 97.3 F L Pulse Rate 71 73 79 Respiratory Rate 20 Blood Pressure 138/59 L Pulse Oximetry 96 Oxygen Delivery 09/16/22 08:00 09/16/22 11:55 09/16/22 10:00 Temperature 97.0 F L Pulse Rate 79 65 67 Respiratory Rate 20 18 Blood Pressure 122/53 L Pulse Oximetry 96 100 Oxygen Delivery Room Air 09/16/22 12:00 09/16/22 12:00 09/16/22 15:11 Temperature 96.7 F L Pulse Rate 64 81 Respiratory Rate 22 H Blood Pressure 138/67 Pulse Oximetry 94 Oxygen Delivery Room Air 09/16/22 14:00 09/16/22 16:00 09/16/22 16:00 Temperature Pulse Rate 68 82 Respiratory Rate Blood Pressure Pulse Oximetry Oxygen Delivery Room Air 09/16/22 18:00 09/16/22 20:00 09/16/22 22:15 Temperature 97.5 F L Pulse Rate 70 79 87 Respiratory Rate 20 Blood Pressure 150/65 H Pulse Oximetry 100 Oxygen Delivery 09/16/22 20:00 09/16/22 23:35 09/16/22 20:00 Temperature 97.7 F Pulse Rate 79 86 76 Respiratory Rate 20 18 Blood Pressure 139/79 Pulse Oximetry 100 98 Oxygen Delivery Room Air 09/16/22 22:00 09/17/22 00:00 09/17/22 00:00 Temperature Pulse Rate 86 86 63 Respiratory Rate 18 Blood Pressure Pulse Oximetry 98 Oxygen Delivery Room Air 09/17/22 01:38 09/17/22 03:33 09/17/22 04:00 Temperature 97.5 F L Pulse Rate 76 66 66 Respiratory Rate 20 20 Blood Pressure 135/57 L Pulse Oximetry 99 99 Oxygen Delivery Room Air 09/17/22 04:00 09/17/22 05:43 Temperature Pulse Rate 64 69 Respiratory Rate Blood Pressure Pulse Oximetry Oxygen Delivery Intake/Output Intake/Output: Intake & Output 09/14/22 09/15/22 09/16/22 09/17/22 23:59 23:59 23:59 23:59 Intake Total 1236 785 980 260 Output Total 601 650 Balance 1236 782 379 -390 Meds/Results Medications: Active Medications Generic Name Dose Route Start Last Admin Trade Name Freq PRN Reason Stop Dose Admin Acetaminophen 650 mg 09/12/22 13:09 09/15/22 17:49 Acetaminophen 325 Mg Tablet PO 650 mg Q6H PRN Administration Mild Pain (1-3) or Fever Hydrocodone Bitart/Acetaminophen 1 tab 09/13/22 10:16 09/16/22 22:
[2022-09-17] MEDS: PANTOPRAZOLE 40 MG TABLET PO (09:23)
[2022-09-17] MEDS: BUMETANIDE 1 MG TABLET 2 MG PO ×2 (09:23→16:32)
[2022-09-17] MEDS: METOPROLOL TARTRATE 50 MG TAB PO ×2 (09:24→20:24)
--- NOTE | 2022-09-17 10:15 | PC.NURSE ---
pt NPO for ERCP today - daily medications held until after test
--- NOTE | 2022-09-17 11:18 | PCPTNOTE ---
Pt's visit was missed on 09-16-22 due to therapist by placing card in wrong folder.
[2022-09-17] MEDS: LACTATED RINGERS 1,000 ML 150 ML IV CONT (12:44)
[2022-09-17] MEDS: levoFLOXacin 500 MG/D5W 100 ML 500 MG/100 ML BAG 100 MG IVPB (12:45)
--- NOTE | 2022-09-17 12:53 | WPDANESEPPF ---
Anes - Initial Pre Proc Eval Procedure: Operation Date: 09/17/22 13:30 Proposed Procedures p Endoscopic Retro Cholangiopancreatogram - Mohan Grimaldo MD Date/Time: 09/17/22 12:53 Surgeon: Tory Chan MD Pre Op Diagnosis: CVA Patient Data Age: 71 Gender: F Height: 1.7 m Weight: 75 kg Last Vital Signs Temp 97.0 F L 09/17/22 08:00 Pulse 74 09/17/22 09:24 Resp 20 09/17/22 08:00 BP 135/54 L 09/17/22 08:00 Pulse Ox 96 09/17/22 08:35 O2 Del Method Room Air 09/17/22 08:35 O2 Flow Rate 2 09/13/22 04:00 Allergies Allergy/AdvReac Type Severity Reaction Status Date / Time codeine Allergy Intermediate Hives Verified 09/17/22 12:51 meperidine Allergy Intermediate Hives Verified 09/17/22 12:51 propoxyphene Allergy Intermediate Hives Verified 09/17/22 12:51 hydromorphone AdvReac Intermediate Hives Verified 09/17/22 12:51 KETCHUP Allergy Severe Hives, Uncoded 09/17/22 12:51 swelling Home Medications Medication Instructions Recorded Confirmed Type amlodipine 5 mg tablet 5 mg PO DAILY 04/25/19 09/11/22 History aspirin 325 mg tablet 325 mg PO DAILY 04/25/19 09/11/22 History bumetanide 2 mg tablet 2 mg PO BID 04/25/19 09/11/22 History magnesium oxide 400 mg (241.3 mg 400 mg PO DAILY 04/25/19 09/11/22 History magnesium) tablet (MagOx) metoprolol tartrate 25 mg tablet 25 mg PO BID #60 tabs 09/21/21 09/11/22 Rx spironolactone 25 mg tablet 25 mg PO DAILY #30 tabs 05/26/22 09/11/22 Rx pantoprazole 40 mg tablet,delayed 40 mg PO QAM #90 tabs 09/02/22 09/11/22 Rx release (Protonix) ezetimibe 10 mg tablet 10 mg PO DAILY 09/11/22 09/11/22 History potassium chloride 10 mEq 10 meq PO DAILY #90 tabs 09/13/22 09/13/22 Rx tablet,extended release (Klor-Con) Laboratory Tests 09/16/22 09/16/22 09/17/22 16:18 20:10 05:02 WBC 9.5 K/mm3 K/mm3 (4.5-10.0) RBC 5.25 M/mm3 M/mm3 (4.2-5.4) Hgb 14.6 g/dL g/dL (12.0-15.0) Hct 45.0 % % (37.0-47.0) MCV 85.7 fl fl (80-100) MCH 27.8 pg pg (26-34) MCHC 32.4 g/dl g/dl (32-36) RDW 14.6 % H % (11.5-14.5) Plt Count 203 k/mm3 k/mm3 (150-375) MPV 10.6 fl H fl (7.4-10.4) Immature Gran % (Auto) 0.4 % % (0-0.5) Neut % (Auto) 82.6 % H % (45.5-73.1) Lymph % (Auto) 8.2 % L % (18.3-44.2) [place] % (Auto) 8.4 % % (2.6-8.5) Eos % (Auto) 0.2 % % (0-4.4) Baso % (Auto) 0.2 % % (0.2-1.2) Lymph # (Auto) 0.78 K/mm3 L K/mm3 (0.9-3.2) [place] # (Auto) 0.8 K/mm3 H K/mm3 (0.1-0.6) Eos # (Auto) 0.0 K/mm3 K/mm3 (0-0.3) Baso # (Auto) 0.0 K/mm3 K/mm3 (0.0-0.1) Abs Immat Gran (auto) 0.04 K/mm3 H K/mm3 (0.00-0.031) Absolute Neuts (auto) 7.8 K/mm3 H K/mm3 (1.3-6.7) Absolute Nucleated RBC 0.0 K/mm3 K/mm3 (0.0-0.012) Nucleated RBC % 0.0 % % (0.0-0.2) Sodium Potassium Chloride Carbon Dioxide Anion Gap BUN Creatinine Estim Creat Clear Calc Estimated GFR Glucose POC Capillary Glucose 166 mg/dl H mg/dl 174 mg/dl H mg/dl (65-105) (65-105) Hemoglobin A1c Calcium Magnesium Total Bilirubin AST ALT Alkaline Phosphatase Total Protein Albumin Urine Color Urine Appearance Urine pH Ur Specific [place] Urine Protein Urine Glucose (UA) Urine Ketones Ur Blood (Man) Urine Nitrate Urine Bilirubin Urine Urobilinogen Ur Leukocyte Esterase Urine RBC Urine WBC Ur Squamous Epith Cells Urine Bacteria
--- NOTE | 2022-09-17 13:07 | PCOTNOTE ---
Per RN, pt is off the floor for a test. Will attempt per POC duration/frequency tomorrow.
--- NOTE | 2022-09-17 13:41 | PC.NURSE ---
@[phone]- to GI lab for procedure via stretcher accompanied by RN
--- NOTE | 2022-09-17 13:55 | SUR.OPER ---
It was noted by Maren [place] that patient had loose bottom teeth prior to start of intubation.
--- NOTE | 2022-09-17 16:23 | PC.NURSE ---
@1600- returned to room post procedure- awake alert - denies pain- diet advance as tolerated- VSS
--- NOTE | 2022-09-17 16:25 | PM.IMPN ---
Progress Note: A&P Assessment and Plan (1) Acute CVA (cerebrovascular accident): Code(s): I63.9 - Cerebral infarction, unspecified Status: Acute Assessment and Plan: PT/OT evaluation, increase lipitor to 80 mg, aspirin, Plavix Appreciate neurology consultation, echo w/bubble pending MRI brain 09/12 showed acute CVA medial right temporal occipital region extending into the posterior right basal ganglia 09/17/2022 interval history: paresent with CVA and placed on aspirin and Statin, patient clinical symptoms are stable, also patient has A. Fib seen by strategic sourcing consultant recommended continue high dose aspirin, and BB for rate control and patient remains clinically stable, however patient appears icteric and LFT were increased with total bili of 8.2 and abdominal US is suspicious for gallsones but not acute cholecystitis, MRCP showed 7 mm stone in the common bile duct with common duct dilation,today patient had ERCP and stones were removed from bile duct, patient is doing well eating, and acute cholecystitis, will consult surgery service, today patient LFT are trending up and her total bili is 6.5 prior to ERCP, patient clinical symptoms are improving will continue to monitor (2) Hyperlipidemia: Code(s): E78.5 - Hyperlipidemia, unspecified Status: Chronic Assessment and Plan: Continue with Zetia and Lipitor (3) Diastolic congestive heart failure: Qualifiers: Heart failure chronicity: chronic Qualified Code(s): I50.32 - Chronic diastolic (congestive) heart failure Code(s): I50.30 - Unspecified diastolic (congestive) heart failure Status: Chronic Assessment and Plan: Continue metoprolol Continue spironolactone Continue Bumex (4) COPD (chronic obstructive pulmonary disease): Code(s): J44.9 - Chronic obstructive pulmonary disease, unspecified Status: Chronic Assessment and Plan: P.r.n. Xopenex (5) Atrial fibrillation: Qualifiers: Atrial fibrillation type: persistent (not longstanding) Qualified Code(s): I48.19 - Other persistent atrial fibrillation Code(s): I48.91 - Unspecified atrial fibrillation Status: Chronic Assessment and Plan: Continue with aspirin and metoprolol (6) Arrhythmia: Code(s): I49.9 - Cardiac arrhythmia, unspecified Status: Acute Assessment and Plan: Vtach with abnormal T waves noted on tele, EKG pending, check mag, phos, trop, cardio consult pending Plan DVT prophylaxis with SCDs GI prophylaxis with PPI Code status full code Subjective Date/time seen: 09/17/22 16:25 PT/OT evaluation, increase lipitor to 80 mg, aspirin, Plavix Appreciate neurology consultation, echo w/bubble pending MRI brain 09/12 showed acute CVA medial right temporal occipital region extending into the posterior right basal ganglia 09/17/2022 interval history: paresent with CVA and placed on aspirin and Statin, patient clinical symptoms are stable, also patient has A. Fib seen by strategic sourcing consultant recommended continue high dose aspirin, and BB for rate control and patient remains clinically stable, however patient appears icteric and LFT were increased with total bili of 8.2 and abdominal US is suspicious for gallsones but not acute cholecystitis, MRCP showed 7 mm stone in the common bile duct with common duct dilation,today patient had ERCP and stones were removed from bile duct, patient is doing well eating, and acute cholecystitis, will consult surgery service, today patient LFT are trending up and her total bili is 6.5 prior to ERCP, patient clinical symptoms are improving will continue to monitor Review of Systems Review of Systems: All systems reviewed & are unremarkable except as noted in HPI and below Exam Narrative: Patient is comfortable, NAD HEENT: eyes are clear and icteric LUNGS: Normal respiratory effort ABD: Nondistended Lower extremities: no dasha
[2022-09-17] MEDS: MAGNESIUM OXIDE 400 MG TABLET PO (16:30)
[2022-09-17] MEDS: POTASSIUM CHLORIDE 10 MEQ TABLET.ER PO (16:30)
[2022-09-17] MEDS: ATORVASTATIN 40 MG TABLET 80 MG PO (16:30)
[2022-09-17] MEDS: amLODIPine BESYLATE 5 MG TABLET PO (16:31)
[2022-09-17] MEDS: EZETIMIBE 10 MG TABLET PO (16:31)
[2022-09-17] MEDS: SPIRONOLACTONE 25 MG TABLET PO (16:31)
[2022-09-17] MEDS: SUCRALFATE SUSP 100 MG/ML 10 ML UDC 1000 MG PO ×2 (17:49→20:23)
[2022-09-17] MEDS: DOCUSATE SODIUM 100 MG CAPSULE PO (20:23)
--- NOTE | 2022-09-17 21:24 | PC.NURSE ---
This patient, Nisha Lu, was transferred to [ [facility]] on 09/17/22 at 2124. Personal belongings sent with patient. Report given to [gregg angulo ]. Appropriate documentation sent with patient.
[2022-09-18 05:46] VITALS: BP 136/61; PULSE 68; RESP 16; TEMP 36.5; O2SAT 96
[2022-09-18] MEDS: SUCRALFATE SUSP 100 MG/ML 10 ML UDC 1000 MG PO ×4 (06:08→20:59)
[2022-09-18 07:14] LABS: Basophils Percent Auto 0.1 % (0.2-1.2); Hematocrit 43.5 % (37.0-47.0); Hemoglobin 14.1 g/dL (12.0-15.0); Immature Granulocyte Absolute 0.04 K/mm3 (0.00-0.031); Immature Granulocyte Percent A 0.4 % (0-0.5); Lymphocytes Percent Auto 7.4 % (18.3-44.2); Mean Corpuscular HGB Conc 32.4 g/dl (32-36); Mean Corpuscular Hemoglobin 27.8 pg (26-34); Mean Corpuscular Volume 85.8 fl (80-100); Mean Platelet Volume 10.7 fl (7.4-10.4); Monocytes Absolute Auto 0.8 K/mm3 (0.1-0.6); Monocytes Percent Auto 8.5 % (2.6-8.5); Neutrophils Percent Auto 83.6 % (45.5-73.1); Platelet Count Result 207 k/mm3 (150-375); Red Blood Count 5.07 M/mm3 (4.2-5.4); Red Cell Distribution Width 14.5 % (11.5-14.5); White Blood Count 9.5 K/mm3 (4.5-10.0)
[2022-09-18 07:21] LABS: Alanine Aminotransferase 173 U/L (6-35); Albumin Level 4.3 g/dL (3.5-5.1); Alkaline Phosphatase 398 U/L (38-126); Anion Gap 8 mmol/L (8-16); Aspartate Amino Transferase 189 U/L (14-36); Blood Urea Nitrogen 30 mg/dL (7-17); Calcium 8.6 mg/dL (8.4-10.2); Carbon Dioxide 36 mmol/L (22-30); Chloride 87 mmol/L (98-107); Estimated CRCL calculation 30 ml/min; Estimated Glomerular Filt Rate 34; Glucose 195 mg/dL (65-110); Magnesium 2.4 mg/dL (1.6-2.3); Potassium 3.4 mmol/L (3.4-5.0); Sodium 131 mmol/L (137-145)
--- NOTE | 2022-09-18 09:40 | PCNWS ---
Weekly nutritional screen. Patient is tolerating current low fat diet with adequate intake at 75-100%. No weight loss reported. No nutritional needs at this time.
[2022-09-18] MEDS: BUMETANIDE 1 MG TABLET 2 MG PO ×2 (10:50→16:06)
[2022-09-18] MEDS: SPIRONOLACTONE 25 MG TABLET PO (10:50)
[2022-09-18] MEDS: ATORVASTATIN 40 MG TABLET 80 MG PO (10:50)
[2022-09-18] MEDS: amLODIPine BESYLATE 5 MG TABLET PO (10:50)
[2022-09-18] MEDS: EZETIMIBE 10 MG TABLET PO (10:50)
[2022-09-18] MEDS: ASPIRIN 325 MG TABLET PO (10:50)
[2022-09-18] MEDS: POTASSIUM CHLORIDE 10 MEQ TABLET.ER PO (10:50)
[2022-09-18 10:51] VITALS: PULSE 78
[2022-09-18] MEDS: MAGNESIUM OXIDE 400 MG TABLET PO (10:51)
[2022-09-18] MEDS: DOCUSATE SODIUM 100 MG CAPSULE PO ×2 (10:51→20:58)
[2022-09-18] MEDS: METOPROLOL TARTRATE 50 MG TAB PO ×2 (10:51→20:59)
[2022-09-18] MEDS: PANTOPRAZOLE 40 MG TABLET PO (10:51)
[2022-09-18] MEDS: polyethylene glycoL 3350 17 GM POWD.PACK PO (10:54)
[2022-09-18 11:03] VITALS: O2SAT 94
--- NOTE | 2022-09-18 12:30 | PM.IMPN ---
Progress Note: A&P Assessment and Plan (1) Acute CVA (cerebrovascular accident): Code(s): I63.9 - Cerebral infarction, unspecified Status: Acute Assessment and Plan: PT/OT evaluation, increase lipitor to 80 mg, aspirin, Plavix Appreciate neurology consultation, echo w/bubble pending MRI brain 09/12 showed acute CVA medial right temporal occipital region extending into the posterior right basal ganglia patient appears icteric and LFT were increased with total bili of 8.2 and abdominal US is suspicious for gallsones but not acute cholecystitis, MRCP showed 7 mm stone in the common bile duct with common duct dilation,today patient had ERCP and stones were removed from bile duct, patient is doing well eating, and acute cholecystitis, will consult surgery service, today patient LFT are trending up and her total bili is 6.5 prior to ERCP, patient clinical symptoms are improving will continue to monitor 09/18: LFTs improving, symptoms improving, cont to monitor, appreciate GI and surgery consultations (2) Hyperlipidemia: Code(s): E78.5 - Hyperlipidemia, unspecified Status: Chronic Assessment and Plan: Continue with Zetia and Lipitor (3) Diastolic congestive heart failure: Qualifiers: Heart failure chronicity: chronic Qualified Code(s): I50.32 - Chronic diastolic (congestive) heart failure Code(s): I50.30 - Unspecified diastolic (congestive) heart failure Status: Chronic Assessment and Plan: Continue metoprolol Continue spironolactone Continue Bumex (4) COPD (chronic obstructive pulmonary disease): Code(s): J44.9 - Chronic obstructive pulmonary disease, unspecified Status: Chronic Assessment and Plan: P.r.n. Xopenex (5) Atrial fibrillation: Qualifiers: Atrial fibrillation type: persistent (not longstanding) Qualified Code(s): I48.19 - Other persistent atrial fibrillation Code(s): I48.91 - Unspecified atrial fibrillation Status: Chronic Assessment and Plan: Continue with aspirin and metoprolol (6) Arrhythmia: Code(s): I49.9 - Cardiac arrhythmia, unspecified Status: Acute Assessment and Plan: Appreciate cardiology consultation, stable, rate controlled Cardiology is recommending the Watchman/ambulate device due to inability to tolerate anticoagulation, patient will think about it and follow-up outpatient with Dr. Colby (7) Choledocholithiasis: Code(s): K80.50 - Calculus of bile duct without cholangitis or cholecystitis without obstruction Status: Acute Assessment and Plan: Appreciate GI consultation MRCP 09/16 showed 7 mm stone in the CBD with dilation, acute cholecystitis and cirrhosis ERCP 09/17 found choledocholithiasis, appeared resolved at end of procedure, GI a recommending to advance diet as tolerated to a low-fat diet, follow LFTs to ensure resolution Plan DVT prophylaxis with SCDs GI prophylaxis with PPI Code status full code Subjective Date/time seen: 09/18/22 12:30 Interval history: 71-year-old female with past medical history significant for atrial fibrillation, diabetes is presenting with left-sided weakness and found to multiple CVAs, both acute and chronic. Confused overnight per nursing. Run of [place] this morning with some complaints of chest pain. Review of Systems Review of Systems: 12 point review of systems was assessed and was negative except as noted in the HPI Exam Narrative: General: No acute distress, alert and oriented per baseline HEENT: Atraumatic, normocephalic, mucous membranes moist CV: tachy, S1, S2 Lungs: Clear to auscultation bilaterally, no rales or crackles noted, no wheezes, good air entry Abdomen: Soft, nontender, nondistended Extremities: Normal to inspection Skin: No rashes noted, no lesions or wounds seen Psych: Euthymic, normal affect Objective Data Vital
--- NOTE | 2022-09-18 13:15 | WPDGIPROGNO ---
Progress Note: A&P Assessment and Plan (1) Choledocholithiasis: Code(s): K80.50 - Calculus of bile duct without cholangitis or cholecystitis without obstruction Status: Acute Assessment and Plan: Patient had ERCP with successful removal of several or large common bile duct gallstones yesterday. LFTs improved somewhat today. Patient appears pain free on exam this morning. Plan to continue monitor LFTs. If still elevated at time of discharge follow-up LFT should be continued followed after discharge until they are resolved totally. (2) Gallstones: Code(s): K80.20 - Calculus of gallbladder without cholecystitis without obstruction Status: Acute Assessment and Plan: Patient with gallstones. She may benefit from ultimately cholecystectomy. Surgery consultation suggested if not already accomplished. (3) Elevated LFTs: Code(s): R79.89 - Other specified abnormal findings of blood chemistry Status: Acute Assessment and Plan: LFTs gradually improving after ERCP. (4) Arrhythmia: Code(s): I49.9 - Cardiac arrhythmia, unspecified Status: Acute (5) Acute CVA (cerebrovascular accident): Code(s): I63.9 - Cerebral infarction, unspecified Status: Acute Assessment and Plan: Patient admitted with CVA. This appears to have stabilized. Neurology following. Subjective Date/time seen: 09/18/22 13:15 Interval history: Patient alert comfortable this morning. Tolerating regular low-fat diet. Denies any abdominal pain. Feels much improved. No significant pain or fever overnight. Review of Systems Review of Systems: Review of systems noncontributory. Exam Narrative: Physical exam reveals patient be alert. Vital signs stable. HEENT exam is unremarkable. Patient anicteric. Lungs are clear to auscultation and percussion. Heart is without murmur or extra sounds. Abdomen bowel sounds present soft nontender with no organomegaly. Objective Data Vital Signs Vital Signs: Vital Signs - 24 hr 09/17/22 14:53 09/17/22 15:03 09/17/22 15:13 Temperature 98.3 F Pulse Rate 72 74 78 Respiratory Rate 20 20 22 H Blood Pressure 159/93 H 147/77 H 137/70 Pulse Oximetry 100 99 96 Oxygen Delivery Simple Face Mask Simple Face Mask Room Air Oxygen Flow Rate 6 3 09/17/22 15:23 09/17/22 15:33 09/17/22 15:43 Temperature Pulse Rate 82 84 77 Respiratory Rate 18 18 20 Blood Pressure 124/71 125/67 134/75 Pulse Oximetry 93 94 94 Oxygen Delivery Room Air Room Air Room Air Oxygen Flow Rate 09/17/22 16:45 09/17/22 16:00 09/17/22 18:00 Temperature 97.1 F L Pulse Rate 77 73 70 Respiratory Rate 20 Blood Pressure 138/64 Pulse Oximetry 92 Oxygen Delivery Oxygen Flow Rate 09/17/22 20:24 09/17/22 20:00 09/17/22 20:30 Temperature 97.2 F L Pulse Rate 79 79 79 Respiratory Rate 20 20 Blood Pressure 138/59 L Pulse Oximetry 92 92 Oxygen Delivery Room Air Oxygen Flow Rate 09/17/22 21:25 09/17/22 22:54 09/18/22 05:46 Temperature 97.1 F L 97.7 F Pulse Rate 75 75 68 Respiratory Rate 14 14 16 Blood Pressure 118/41 L 136/61 Pulse Oximetry 100 100 96 Oxygen Delivery Room Air Oxygen Flow Rate 09/18/22 10:51 09/18/22 11:03 Temperature Pulse Rate 78 Respiratory Rate Blood Pressure Pulse Oximetry 94 Oxygen Delivery Room Air Oxygen Flow Rate Intake/Output Intake/Output: Intake & Output 09/15/22 09/16/22 09/17/22 09/18/22 23:59 23:59 23:59 23:59 Intake Total 890 654 3509 100 Output Total 601 1000 Balance 785 379 0 100 Meds/Results Medications: Active Medications Generic Name Dose Route Start Last Admin Trade Name Freq PRN Reason Stop Dose Admin Acetaminophen 650 mg 09/12/22 13:09 09/15/22 17:49 Acetaminophen 325 Mg Tablet PO 650 mg Q6H PRN Administration Mild Pain (1-3) or Fever Hydrocodone Bitart/Acetaminophen 1 tab 09/13/22 10:16 09/16/22 2
[2022-09-18 14:00] VITALS: BP 120/68; PULSE 62; RESP 20; TEMP 36.5; O2SAT 95
--- NOTE | 2022-09-18 14:31 | WPDANESPN ---
Anes - Prog Note Post-Op Date/Time: 09/18/22 14:31 Cardiovascular status: normal Respiratory status: normal Airway patency: baseline Mental status: baseline Post-Op hydration status: normal Vital Signs: Last Vital Signs Temp 97.7 F 09/18/22 05:46 Pulse 78 09/18/22 10:51 Resp 16 09/18/22 05:46 BP 136/61 09/18/22 05:46 Pulse Ox 94 09/18/22 11:03 O2 Del Method Room Air 09/18/22 11:03 O2 Flow Rate 3 09/17/22 15:03 Pain Score (VAS): 0/10. Patient resting in bed at time of assessment, appears comfortable. I/O: Intake & Output 09/17/22 09/18/22 09/18/22 23:59 07:59 15:59 Intake Total 540 100 120 Output Total 350 Balance 190 100 120 Laboratory Tests 09/18/22 06:52 09/18/22 06:52 09/18/22 09/18/22 06:52 06:52 WBC 9.5 RBC 5.07 Hgb 14.1 Hct 43.5 MCV 85.8 MCH 27.8 MCHC 32.4 RDW 14.5 Plt Count 207 MPV 10.7 H Immature Gran % (Auto) 0.4 Neut % (Auto) 83.6 H Lymph % (Auto) 7.4 L [place] % (Auto) 8.5 Eos % (Auto) 0.0 Baso % (Auto) 0.1 L Lymph # (Auto) 0.70 L [place] # (Auto) 0.8 H Eos # (Auto) 0.0 Baso # (Auto) 0.0 Abs Immat Gran (auto) 0.04 H Absolute Neuts (auto) 8.0 H Absolute Nucleated RBC 0.0 Nucleated RBC % 0.0 Sodium 131 L Potassium 3.4 Chloride 87 L Carbon Dioxide 36 H Anion Gap 8 BUN 30 H Creatinine 1.50 H Estim Creat Clear Calc 30 Estimated GFR 34 L Glucose 195 H Calcium 8.6 Magnesium 2.4 H Total Bilirubin 4.0 H AST 189 H ALT 173 H Alkaline Phosphatase 398 H Total Protein 9.0 H Albumin 4.3 Post-procedural complaints: none Patient Feedback: Patient satisfied with anesthetic care.
--- NOTE | 2022-09-18 14:42 | PM.CNGS ---
Assessment and Plan Assessment and plan (1) Choledocholithiasis: Code(s): K80.50 - Calculus of bile duct without cholangitis or cholecystitis without obstruction Status: Acute Assessment and Plan: Patient who presented with acute CVA a week ago with known liver cirrhosis who had increased LFTs with hyperbilirubinemia. Found to have evidence of choledocholithiasis on imaging. S/p ERCP yesterday with clearance of at least two large gallstones from the common bile duct. She is currently on ASA 325 mg daily but has not received Plavix since admission on 09/11/22. Discussed with the patient that she may eventually benefit from an interval cholecystectomy to prevent future complications with her gallstones, but at this time she would be at high risk for a perioperative cardiovascular event and bleeding given her recent stroke. She additionally holds other co-morbidities that increase her risks of a cholecystectomy and general anesthesia, including her COPD, aortic stenosis, liver cirrhosis, and other co-morbidities listed below. We would recommend at this time to recover from the stroke and she could eventually be discharged on a low fat diet. She can follow-up as an outpatient with Dr. Cason to discuss an interval cholecystectomy once she is cleared by Neurology. I discussed also with the patient that until she has a cholecystectomy, she is still at risk for having recurrent choledocholithiasis or complications with her gallstones and we talked about the typical symptoms associated with this. I have also called her with her permission, as no family was at the bedside and she was somewhat confused, and discussed the entire plan with him as well. They both seem to understand our recommendations and all questions were answered. (2) Gallstones: Code(s): K80.20 - Calculus of gallbladder without cholecystitis without obstruction Status: Acute (3) Acute CVA (cerebrovascular accident): Code(s): I63.9 - Cerebral infarction, unspecified Status: Acute (4) Elevated LFTs: Code(s): R79.89 - Other specified abnormal findings of blood chemistry Status: Acute Assessment and Plan: LFTs trending down s/p ERCP. Tolerating a low fat diet. Continue to trend labs. (5) Cirrhosis: Code(s): K74.60 - Unspecified cirrhosis of liver Status: Acute Assessment and Plan: Liver cirrhosis with previous imaging from 2018 showing evidence of portal hypertension. GI following. (6) Aortic valve stenosis: Qualifiers: Cardiac valve disease etiology: nonrheumatic Qualified Code(s): I35.0 - Nonrheumatic aortic (valve) stenosis Code(s): I35.0 - Nonrheumatic aortic (valve) stenosis Status: Chronic (7) COPD (chronic obstructive pulmonary disease): Code(s): J44.9 - Chronic obstructive pulmonary disease, unspecified Status: Chronic (8) Atrial fibrillation: Qualifiers: Atrial fibrillation type: persistent (not longstanding) Qualified Code(s): I48.19 - Other persistent atrial fibrillation Code(s): I48.91 - Unspecified atrial fibrillation Status: Chronic Assessment and Plan: Has been rate-controlled and was evaluated by Cardiology. She was not on any anticoagulation prior to her admission due to hx GI bleed and fall risk. (9) Hypertensive heart disease: Qualifiers: Heart failure presence: without heart failure Qualified Code(s): I11.9 - Hypertensive heart disease without heart failure Code(s): I11.9 - Hypertensive heart disease without heart failure Status: Chronic (10) Chronic kidney disease: Code(s): N18.9 - Chronic kidney disease, unspecified Status: Acute (11) Cigarette smoker: Code(s): F17.210 - Nicotine dependence, cigarettes, uncomplicated Status: Acute Assessment and Plan: Recommended cessation. (12) Type 2 diabetes mellitus: Qualifiers: Diabetes mellitu
[2022-09-18 21:39] VITALS: BP 139/72; PULSE 68; RESP 14; TEMP 36.1; O2SAT 96
[2022-09-19 05:07] VITALS: BP 139/59; PULSE 69; RESP 14; TEMP 36.4; O2SAT 97
[2022-09-19] MEDS: SUCRALFATE SUSP 100 MG/ML 10 ML UDC 1000 MG PO ×4 (05:41→20:51)
[2022-09-19 06:32] LABS: Basophils Percent Auto 0.2 % (0.2-1.2); Eosinophils Percent Auto 0.2 % (0-4.4); Hematocrit 43.1 % (37.0-47.0); Hemoglobin 13.9 g/dL (12.0-15.0); Immature Granulocyte Absolute 0.06 K/mm3 (0.00-0.031); Immature Granulocyte Percent A 0.6 % (0-0.5); Lymphocytes Absolute Auto 0.73 K/mm3 (0.9-3.2); Mean Corpuscular HGB Conc 32.3 g/dl (32-36); Mean Corpuscular Hemoglobin 27.1 pg (26-34); Mean Platelet Volume 10.9 fl (7.4-10.4); Monocytes Absolute Auto 0.9 K/mm3 (0.1-0.6); Monocytes Percent Auto 8.9 % (2.6-8.5); Neutrophils Absolute Auto 8.7 K/mm3 (1.3-6.7); Neutrophils Percent Auto 83.1 % (45.5-73.1); Platelet Count Result 219 k/mm3 (150-375); Red Blood Count 5.13 M/mm3 (4.2-5.4); Red Cell Distribution Width 14.3 % (11.5-14.5); White Blood Count 10.5 K/mm3 (4.5-10.0)
[2022-09-19 06:49] LABS: Alanine Aminotransferase 204 U/L (6-35); Albumin Level 4.4 g/dL (3.5-5.1); Alkaline Phosphatase 692 U/L (38-126); Anion Gap 9 mmol/L (8-16); Aspartate Amino Transferase 276 U/L (14-36); Bilirubin,Total 4.4 mg/dL (0.2-1.3); Blood Urea Nitrogen 36 mg/dL (7-17); Calcium 8.8 mg/dL (8.4-10.2); Carbon Dioxide 36 mmol/L (22-30); Chloride 85 mmol/L (98-107); Estimated CRCL calculation 27 ml/min; Estimated Glomerular Filt Rate 30; Glucose 189 mg/dL (65-110); Lipase 667 U/L (23-300); Magnesium 2.7 mg/dL (1.6-2.3); Potassium 3.2 mmol/L (3.4-5.0); Sodium 130 mmol/L (137-145)
--- NOTE | 2022-09-19 08:17 | WPDGIPROGNO ---
Progress Note: A&P Assessment and Plan (1) Choledocholithiasis: Code(s): K80.50 - Calculus of bile duct without cholangitis or cholecystitis without obstruction Status: Acute Assessment and Plan: Patient found to have several large common bile duct gallstones removed at ERCP. Surgery now following patient for anticipated cholecystectomy. (2) Gallstones: Code(s): K80.20 - Calculus of gallbladder without cholecystitis without obstruction Status: Acute Assessment and Plan: Patient with gallstones. Surgery following for elective cholecystectomy at some point. (3) Elevated LFTs: Code(s): R79.89 - Other specified abnormal findings of blood chemistry Status: Acute Assessment and Plan: LFTs remain elevated. Slightly more elevated today. This could be related to recent procedure. At the time of cholecystectomy , cholangiogram should be performed. Will continue to monitor LFTs. (4) Arrhythmia: Code(s): I49.9 - Cardiac arrhythmia, unspecified Status: Acute (5) Acute CVA (cerebrovascular accident): Code(s): I63.9 - Cerebral infarction, unspecified Status: Acute (6) Cirrhosis: Code(s): K74.60 - Unspecified cirrhosis of liver Status: Acute Assessment and Plan: Patient now admits to some alcohol intake on a routine regular basis. This likely attributes to cirrhosis evident on imaging studies. Supportive care for now. Subjective Date/time seen: 09/19/22 08:17 Interval history: Patient alert. States she is comfortable this morning. Offers no specific complaints. Review of Systems Review of Systems: Review of systems noncontributory. Exam Narrative: Physical exam reveals patient be alert and oriented this morning. HEENT exam reveals mild icterus. Lungs are clear. Heart without murmur. Abdomen bowel sounds present soft with mild right upper quadrant tenderness appreciated this morning. No organomegaly evident. Objective Data Vital Signs Vital Signs: Vital Signs - 24 hr 09/18/22 10:51 09/18/22 11:03 09/18/22 14:00 Temperature 97.7 F Pulse Rate 78 62 Respiratory Rate 20 Blood Pressure 120/68 Pulse Oximetry 94 95 Oxygen Delivery Room Air 09/18/22 21:39 09/18/22 20:00 09/19/22 05:07 Temperature 97 F L 97.6 F Pulse Rate 68 69 Respiratory Rate 14 14 Blood Pressure 139/72 139/59 L Pulse Oximetry 96 97 Oxygen Delivery Room Air Intake/Output Intake/Output: Intake & Output 09/16/22 09/17/22 09/18/22 09/19/22 23:59 23:59 23:59 23:59 Intake Total 980 1000 340 200 Output Total 601 1000 600 Balance 379 0 -260 200 Meds/Results Medications: Active Medications Generic Name Dose Route Start Last Admin Trade Name Freq PRN Reason Stop Dose Admin Acetaminophen 650 mg 09/12/22 13:09 09/15/22 17:49 Acetaminophen 325 Mg Tablet PO 650 mg Q6H PRN Administration Mild Pain (1-3) or Fever Hydrocodone Bitart/Acetaminophen 1 tab 09/13/22 10:16 09/16/22 22:18 Hydrocodone/Acetaminophen (*Crx) 5-325 Mg Tablet PO 1 tab Q4H PRN Administration Pain Rated 4-6 Amlodipine Besylate 5 mg 09/12/22 09:00 09/18/22 10:50 Amlodipine Besylate 5 Mg Tablet PO 5 mg DAILY ZULEIKA Administration Aspirin 325 mg 09/12/22 09:00 09/18/22 10:50 Aspirin 325 Mg Tablet PO 325 mg DAILY ZULEIKA Administration Atorvastatin Calcium 80 mg 09/13/22 09:00 09/18/22 10:50 Atorvastatin 40 Mg Tablet PO 80 mg DAILY ZULEIKA Administration Bumetanide 2 mg 09/12/22 09:00 09/18/22 16:06 Bumetanide 1 Mg Tablet PO 2 mg BID ZULEIKA Administration Docusate Sodium 100 mg 09/16/22 21:00 09/18/22 20:58 Docusate Sodium 100 Mg Capsule PO 100 mg Q12HR ZULEIKA Administration Ezetimibe 10 mg 09/12/22 09:00 09/18/22 10:50 Ezetimibe 10 Mg Tablet PO 10 mg DAILY ZULEIKA Administration Magnesium Oxide 400 mg 09/12/22 09:00 09/18/22 10:51 Magnesium Oxide
[2022-09-19] MEDS: POTASSIUM CHLORIDE 10 MEQ TABLET.ER PO (08:54)
[2022-09-19] MEDS: DOCUSATE SODIUM 100 MG CAPSULE PO ×2 (08:54→20:50)
[2022-09-19] MEDS: polyethylene glycoL 3350 17 GM POWD.PACK PO (08:54)
[2022-09-19 08:55] VITALS: PULSE 72
[2022-09-19] MEDS: PANTOPRAZOLE 40 MG TABLET PO (08:55)
[2022-09-19] MEDS: ASPIRIN 325 MG TABLET PO (08:55)
[2022-09-19] MEDS: amLODIPine BESYLATE 5 MG TABLET PO (08:55)
[2022-09-19] MEDS: MAGNESIUM OXIDE 400 MG TABLET PO (08:55)
[2022-09-19] MEDS: SPIRONOLACTONE 25 MG TABLET PO (08:55)
[2022-09-19] MEDS: EZETIMIBE 10 MG TABLET PO (08:55)
[2022-09-19] MEDS: METOPROLOL TARTRATE 50 MG TAB PO ×2 (08:55→20:50)
[2022-09-19] MEDS: ATORVASTATIN 40 MG TABLET 80 MG PO (08:55)
[2022-09-19] MEDS: BUMETANIDE 1 MG TABLET 2 MG PO ×2 (08:55→16:55)
[2022-09-19] MEDS: NICOTINE (*PBKC) 21 MG PATCH 1 PATCH TRANSDERM (08:56)
[2022-09-19] MEDS: SODIUM CHLORIDE 0.9% IV 1,000 ML 100 ML IV CONT ×2 (12:28→20:51)
[2022-09-19] MEDS: ACETAMINOPHEN 325 MG TABLET 650 MG PO ×2 (12:29→20:50)
--- NOTE | 2022-09-19 12:58 | PM.IMPN ---
Progress Note: A&P Assessment and Plan (1) Acute CVA (cerebrovascular accident): Code(s): I63.9 - Cerebral infarction, unspecified Status: Acute Assessment and Plan: PT/OT evaluation, increase lipitor to 80 mg, aspirin, Plavix Appreciate neurology consultation, echo w/bubble pending MRI brain 09/12 showed acute CVA medial right temporal occipital region extending into the posterior right basal ganglia patient appears icteric and LFT were increased with total bili of 8.2 and abdominal US is suspicious for gallsones but not acute cholecystitis, MRCP showed 7 mm stone in the common bile duct with common duct dilation,today patient had ERCP and stones were removed from bile duct, patient is doing well eating, and acute cholecystitis, will consult surgery service, today patient LFT are trending up and her total bili is 6.5 prior to ERCP, patient clinical symptoms are improving will continue to monitor 09/18: LFTs improving, symptoms improving, cont to monitor, appreciate GI and surgery consultations 09/19/2022 interval history: paresent with CVA and placed on aspirin and Statin, patient clinical symptoms are stable, also patient has A. Fib seen by cellophane bath mixer recommended continue high dose aspirin, and BB for rate control and patient remains clinically stable, however patient appears icteric and LFT were increased with total bili of 8.2 and abdominal US is suspicious for gallsones but not acute cholecystitis, MRCP showed 7 mm stone in the common bile duct with common duct dilation, on 09/17 ? patient had? ERCP and several large stones were removed from bile duct, patient is doing well eating, ? and acute cholecystitis, seen by surgery service does not recommend cholecystectomy patient is on anti-platelet for CVA, clinically stable may reconsider cholecystectomy, patient BUN creatinine arising most likely secondary to poor p.o. intake due to the procedure, will gently hydrate the patient and monitor, today patient LFT are trending up? and her total bili is 4.4 today, patient clinical symptoms are improving? will continue to monitor, patient will benefit going to [facility] rehab. (2) Hyperlipidemia: Code(s): E78.5 - Hyperlipidemia, unspecified Status: Chronic Assessment and Plan: Continue with Zetia and Lipitor (3) Diastolic congestive heart failure: Qualifiers: Heart failure chronicity: chronic Qualified Code(s): I50.32 - Chronic diastolic (congestive) heart failure Code(s): I50.30 - Unspecified diastolic (congestive) heart failure Status: Chronic Assessment and Plan: Continue metoprolol Continue spironolactone Continue Bumex (4) COPD (chronic obstructive pulmonary disease): Code(s): J44.9 - Chronic obstructive pulmonary disease, unspecified Status: Chronic Assessment and Plan: P.r.n. Xopenex (5) Atrial fibrillation: Qualifiers: Atrial fibrillation type: persistent (not longstanding) Qualified Code(s): I48.19 - Other persistent atrial fibrillation Code(s): I48.91 - Unspecified atrial fibrillation Status: Chronic Assessment and Plan: Continue with aspirin and metoprolol (6) Arrhythmia: Code(s): I49.9 - Cardiac arrhythmia, unspecified Status: Acute Assessment and Plan: Appreciate cardiology consultation, stable, rate controlled Cardiology is recommending the Watchman/ambulate device due to inability to tolerate anticoagulation, patient will think about it and follow-up outpatient with Dr. Colby (7) Choledocholithiasis: Code(s): K80.50 - Calculus of bile duct without cholangitis or cholecystitis without obstruction Status: Acute Assessment and Plan: Appreciate GI consultation MRCP 09/16 showed 7 mm stone in the CBD with dilation, acute cholecystitis and cirrhosis ERCP 09/17 found choledocholithiasis, appeared resolved at end of procedure, GI a recomm
--- NOTE | 2022-09-19 13:09 | ECG_ITS ---
Measurements Intervals Lequire Rate: 65 P: CA: 0 QRS: -35 QRSD: 110 T: 46 QT: 444 QTc: 462 Interpretive Statements ATRIAL FIBRILLATION MARKED LEFT AXIS DEVIATION [QRS AXIS < -30] COMPARED TO ECG 09/13/2022 07:59:21 NO SIGNIFICANT CHANGES Electronically Signed On 09-19-2022 18:22:31 CDT by Tamiko Beltran M.D.
--- NOTE | 2022-09-19 14:30 | PM.PNGS ---
Progress Note: A&P Assessment and Plan (1) Choledocholithiasis: Code(s): K80.50 - Calculus of bile duct without cholangitis or cholecystitis without obstruction Status: Acute Assessment and Plan: S/p ERCP 09/17/22 with removal of large gallstones from the common bile duct. LFTs down yesterday but up slightly again today with total bilirubin at 4.4. Could be related to recent procedure. Patient is clinically improving and tolerating a low fat diet. Continue to trend labs. (2) Gallstones: Code(s): K80.20 - Calculus of gallbladder without cholecystitis without obstruction Status: Acute Assessment and Plan: Consider eventual interval cholecystectomy. Recommend to recover from her stroke and follow a low fat diet. Patient can follow-up as an outpatient with Dr. Cason to discuss cholecystectomy once cleared by Neurology. (3) Acute CVA (cerebrovascular accident): Code(s): I63.9 - Cerebral infarction, unspecified Status: Acute (4) Elevated LFTs: Code(s): R79.89 - Other specified abnormal findings of blood chemistry Status: Acute (5) Cirrhosis: Code(s): K74.60 - Unspecified cirrhosis of liver Status: Acute (6) Aortic valve stenosis: Qualifiers: Cardiac valve disease etiology: nonrheumatic Qualified Code(s): I35.0 - Nonrheumatic aortic (valve) stenosis Code(s): I35.0 - Nonrheumatic aortic (valve) stenosis Status: Chronic (7) COPD (chronic obstructive pulmonary disease): Code(s): J44.9 - Chronic obstructive pulmonary disease, unspecified Status: Chronic (8) Atrial fibrillation: Qualifiers: Atrial fibrillation type: persistent (not longstanding) Qualified Code(s): I48.19 - Other persistent atrial fibrillation Code(s): I48.91 - Unspecified atrial fibrillation Status: Chronic Subjective Subjective Date/Time Seen: 09/19/22 12:30 Patient reports: no new complaints, feels better, tolerating a regular diet (low fat diet) and afebrile Interval history: Patient denies any abdominal pain, nausea, or vomiting. Tolerating a low fat diet. No specific complaints at this time. Review of Systems Review of Systems: ROS unchanged Exam Const: General: comfortable and no acute distress Orientation/consciousness: patient oriented x3 GI: Inspection: non-distended GI Palp: Yes Soft to palpation, No Tenderness to palpation present (GI) and No Guarding due to palpation present (GI) Auscultation: normal bowel sounds Objective Data Vital Signs Vital Signs: Vital Signs - 24 hr 09/18/22 21:39 09/18/22 20:00 09/19/22 05:07 Temperature 97 F L 97.6 F Pulse Rate 68 69 Respiratory Rate 14 14 Blood Pressure 139/72 139/59 L Pulse Oximetry 96 97 Oxygen Delivery Room Air 09/19/22 08:55 Temperature Pulse Rate 72 Respiratory Rate Blood Pressure Pulse Oximetry Oxygen Delivery Intake/Output Intake/Output: Intake & Output 09/16/22 09/17/22 09/18/22 09/19/22 23:59 23:59 23:59 23:59 Intake Total 980 1000 340 680 Output Total 601 1000 600 Balance 379 0 -260 680 Meds/Results Medications: Active Medications Generic Name Dose Route Start Last Admin Trade Name Freq PRN Reason Stop Dose Admin Acetaminophen 650 mg 09/12/22 13:09 09/19/22 12:29 Acetaminophen 325 Mg Tablet PO 650 mg Q6H PRN Administration Mild Pain (1-3) or Fever Hydrocodone Bitart/Acetaminophen 1 tab 09/13/22 10:16 09/16/22 22:18 Hydrocodone/Acetaminophen (*Crx) 5-325 Mg Tablet PO 1 tab Q4H PRN Administration Pain Rated 4-6 Amlodipine Besylate 5 mg 09/12/22 09:00 09/19/22 08:55 Amlodipine Besylate 5 Mg Tablet PO 5 mg DAILY ZULEIKA Administration Aspirin 325 mg 09/12/22 09:00 09/19/22 08:55 Aspirin 325 Mg Tablet PO 325 mg DAILY ZULEIKA Administration Atorvastatin Calcium 80 mg 09/13/22 09:00 09/19/22 08:55 Atorvastatin 40 Mg Tablet PO 80 mg DAILY S
[2022-09-19 15:33] VITALS: BP 118/56; PULSE 61; RESP 16; TEMP 36.6; O2SAT 98
--- NOTE | 2022-09-19 18:52 | PC.NURSE ---
Spoke with Dr. Chan about duplicate cardiology consult. MD would like to confirm welding process engineer anticoagulation recommendation. RN updated. RN calling cardiology in AM.
[2022-09-19 21:58] VITALS: BP 133/61; PULSE 61; RESP 14; TEMP 36.5; O2SAT 99
[2022-09-20] MEDS: SODIUM CHLORIDE 0.9% IV 1,000 ML 100 ML IV CONT ×2 (05:26→17:35)
[2022-09-20] MEDS: SUCRALFATE SUSP 100 MG/ML 10 ML UDC 1000 MG PO ×4 (05:27→20:29)
[2022-09-20 06:00] VITALS: BP 139/57; PULSE 75; RESP 14; TEMP 36.2; O2SAT 95
[2022-09-20 07:51] LABS: Basophils Percent Auto 0.1 % (0.2-1.2); Eosinophils Percent Auto 0.4 % (0-4.4); Hematocrit 41.6 % (37.0-47.0); Hemoglobin 13.4 g/dL (12.0-15.0); Immature Granulocyte Absolute 0.04 K/mm3 (0.00-0.031); Immature Granulocyte Percent A 0.4 % (0-0.5); Lymphocytes Absolute Auto 0.69 K/mm3 (0.9-3.2); Lymphocytes Percent Auto 6.7 % (18.3-44.2); Mean Corpuscular HGB Conc 32.2 g/dl (32-36); Mean Corpuscular Hemoglobin 27.6 pg (26-34); Mean Corpuscular Volume 85.8 fl (80-100); Monocytes Percent Auto 9.2 % (2.6-8.5); Neutrophils Absolute Auto 8.6 K/mm3 (1.3-6.7); Neutrophils Percent Auto 83.2 % (45.5-73.1); Platelet Count Result 192 k/mm3 (150-375); Red Blood Count 4.85 M/mm3 (4.2-5.4); Red Cell Distribution Width 14.6 % (11.5-14.5); White Blood Count 10.4 K/mm3 (4.5-10.0)
[2022-09-20] MEDS: NICOTINE (*PBKC) 21 MG PATCH 1 PATCH TRANSDERM (08:01)
[2022-09-20 08:02] VITALS: PULSE 80
[2022-09-20] MEDS: EZETIMIBE 10 MG TABLET PO (08:02)
[2022-09-20] MEDS: polyethylene glycoL 3350 17 GM POWD.PACK PO (08:02)
[2022-09-20] MEDS: ASPIRIN 325 MG TABLET PO (08:02)
[2022-09-20] MEDS: DOCUSATE SODIUM 100 MG CAPSULE PO ×2 (08:02→20:30)
[2022-09-20] MEDS: METOPROLOL TARTRATE 50 MG TAB PO ×2 (08:02→20:29)
[2022-09-20] MEDS: SPIRONOLACTONE 25 MG TABLET PO (08:02)
[2022-09-20] MEDS: BUMETANIDE 1 MG TABLET 2 MG PO ×2 (08:02→18:03)
[2022-09-20] MEDS: POTASSIUM CHLORIDE 10 MEQ TABLET.ER PO (08:03)
[2022-09-20] MEDS: amLODIPine BESYLATE 5 MG TABLET PO (08:03)
[2022-09-20] MEDS: ATORVASTATIN 40 MG TABLET 80 MG PO (08:03)
[2022-09-20] MEDS: PANTOPRAZOLE 40 MG TABLET PO (08:03)
[2022-09-20 08:14] LABS: Alanine Aminotransferase 180 U/L (6-35); Albumin Level 3.8 g/dL (3.5-5.1); Alkaline Phosphatase 626 U/L (38-126); Anion Gap 6 mmol/L (8-16); Aspartate Amino Transferase 215 U/L (14-36); Bilirubin,Total 2.9 mg/dL (0.2-1.3); Blood Urea Nitrogen 34 mg/dL (7-17); Calcium 8.3 mg/dL (8.4-10.2); Carbon Dioxide 35 mmol/L (22-30); Chloride 93 mmol/L (98-107); Estimated CRCL calculation 28 ml/min; Estimated Glomerular Filt Rate 32; Glucose 184 mg/dL (65-110); Magnesium 2.5 mg/dL (1.6-2.3); Potassium 3.5 mmol/L (3.4-5.0); Sodium 134 mmol/L (137-145)
--- NOTE | 2022-09-20 11:42 | PM.PNGS ---
Progress Note: A&P Assessment and Plan (1) Choledocholithiasis: Code(s): K80.50 - Calculus of bile duct without cholangitis or cholecystitis without obstruction Status: Acute Assessment and Plan: LFT's improving and tolerating low fat diet. Surgery will likely be delayed until further out from acute CVA. If symptoms worsen, might have to consider surgery sooner. Continue Stroke Rehab. Ok to discharge from surgical standpoint and will have patient follow up in 2-3 weeks in office. (2) Gallstones: Code(s): K80.20 - Calculus of gallbladder without cholecystitis without obstruction Status: Acute (3) Elevated LFTs: Code(s): R79.89 - Other specified abnormal findings of blood chemistry Status: Acute (4) Chronic alcohol use: Code(s): F10.90 - Alcohol use, unspecified, uncomplicated Status: Acute Assessment and Plan: Cessation discussed with patient. Cirrhosis will increase bleeding risks. Coags and platelets normal on admission. LFT's were normal prior to obstructed CBD. Cirrhosis likely well compensated at this time, will need to continue close follow up. (5) Acute CVA (cerebrovascular accident): Code(s): I63.9 - Cerebral infarction, unspecified Status: Acute (6) Cigarette smoker: Code(s): F17.210 - Nicotine dependence, cigarettes, uncomplicated Status: Acute (7) Cirrhosis: Code(s): K74.60 - Unspecified cirrhosis of liver Status: Acute Subjective Subjective Date/Time Seen: 09/20/22 11:42 Interval history: Tolerating low fat diet. Had some abdominal pain after PT today, but not after eating. Exam GI: Inspection: non-distended GI Palp: Yes Soft to palpation, No Tenderness to palpation present (GI) and No Guarding due to palpation present (GI) Objective Data Vital Signs Vital Signs: Vital Signs - 24 hr 09/19/22 15:33 09/19/22 20:00 09/19/22 21:58 Temperature 36.6 C 36.5 C Pulse Rate 61 61 Respiratory Rate 16 14 Blood Pressure 118/56 L 133/61 Pulse Oximetry 98 99 Oxygen Delivery Room Air 09/20/22 06:00 09/20/22 08:02 Temperature 36.2 C L Pulse Rate 75 80 Respiratory Rate 14 Blood Pressure 139/57 L Pulse Oximetry 95 Oxygen Delivery Intake/Output Intake/Output: Intake & Output 09/17/22 09/18/22 09/19/22 09/20/22 23:59 23:59 23:59 23:59 Intake Total 9114 410 0087 1390 Output Total 1000 600 Balance 0 -260 2160 1390 Meds/Results Medications: Active Medications Generic Name Dose Route Start Last Admin Trade Name Freq PRN Reason Stop Dose Admin Acetaminophen 650 mg 09/12/22 13:09 09/19/22 20:50 Acetaminophen 325 Mg Tablet PO 650 mg Q6H PRN Administration Mild Pain (1-3) or Fever Hydrocodone Bitart/Acetaminophen 1 tab 09/13/22 10:16 09/16/22 22:18 Hydrocodone/Acetaminophen (*Crx) 5-325 Mg Tablet PO 1 tab Q4H PRN Administration Pain Rated 4-6 Amlodipine Besylate 5 mg 09/12/22 09:00 09/20/22 08:03 Amlodipine Besylate 5 Mg Tablet PO 5 mg DAILY ZULEIKA Administration Aspirin 325 mg 09/12/22 09:00 09/20/22 08:02 Aspirin 325 Mg Tablet PO 325 mg DAILY ZULEIKA Administration Atorvastatin Calcium 80 mg 09/13/22 09:00 09/20/22 08:03 Atorvastatin 40 Mg Tablet PO 80 mg DAILY ZULEIKA Administration Bumetanide 2 mg 09/12/22 09:00 09/20/22 08:02 Bumetanide 1 Mg Tablet PO 2 mg BID ZULEIKA Administration Docusate Sodium 100 mg 09/16/22 21:00 09/20/22 08:02 Docusate Sodium 100 Mg Capsule PO 100 mg Q12HR ZULEIKA Administration Ezetimibe 10 mg 09/12/22 09:00 09/20/22 08:02 Ezetimibe 10 Mg Tablet PO 10 mg DAILY ZULEIKA Administration Sodium Chloride 1,000 mls @ 100 mls/hr 09/19/22 11:45 09/20/22 05:26 Normal Saline Iv IV CONT 100 mls/hr .Q10H ZULEIKA Administration Magnesium Oxide 400 mg 09/12/22 09:00 09/20/22 08:03 Magnesium Oxide 400 Mg Tablet PO Not Given DAILY ZULEIKA Metoprolol Tartrate
[2022-09-20] MEDS: ACETAMINOPHEN 325 MG TABLET 650 MG PO (12:07)
--- NOTE | 2022-09-20 13:30 | PM.IMPN ---
Progress Note: A&P Assessment and Plan (1) Acute CVA (cerebrovascular accident): Code(s): I63.9 - Cerebral infarction, unspecified Status: Acute Assessment and Plan: PT/OT evaluation, increase lipitor to 80 mg, aspirin, Plavix Appreciate neurology consultation, echo w/bubble pending MRI brain 09/12 showed acute CVA medial right temporal occipital region extending into the posterior right basal ganglia patient appears icteric and LFT were increased with total bili of 8.2 and abdominal US is suspicious for gallsones but not acute cholecystitis, MRCP showed 7 mm stone in the common bile duct with common duct dilation,today patient had ERCP and stones were removed from bile duct, patient is doing well eating, and acute cholecystitis, will consult surgery service, today patient LFT are trending up and her total bili is 6.5 prior to ERCP, patient clinical symptoms are improving will continue to monitor 09/18: LFTs improving, symptoms improving, cont to monitor, appreciate GI and surgery consultations 09/20/2022 interval history: presented with CVA and placed on aspirin and Statin, patient clinical symptoms are stable, also patient has A. Fib seen by pump machine operator recommended continue high dose aspirin, and BB for rate control and patient remains clinically stable, however patient appears icteric and LFT were increased with total bili of 8.2 and abdominal US is suspicious for gallsones but not acute cholecystitis, MRCP showed 7 mm stone in the common bile duct with common duct dilation, on 09/17 ? patient had? ERCP and several large stones were removed from bile duct, patient is doing well eating, ? and acute cholecystitis, seen by surgery service does not recommend cholecystectomy patient is on anti-platelet for CVA, once clinically stable may reconsider cholecystectomy, patient BUN creatinine arising most likely secondary to poor p.o. intake due to the procedure, will gently hydrate the patient and monitor, today patient LFT are trending down?and her total bili is 2.9 today compared to 8.2 on 09/14 patient clinical symptoms are improving? will continue to monitor, patient will benefit going to [facility] rehab. patient with A.fib, is not a candidate for anticoagulation, (2) Hyperlipidemia: Code(s): E78.5 - Hyperlipidemia, unspecified Status: Chronic Assessment and Plan: Continue with Zetia and Lipitor (3) Diastolic congestive heart failure: Qualifiers: Heart failure chronicity: chronic Qualified Code(s): I50.32 - Chronic diastolic (congestive) heart failure Code(s): I50.30 - Unspecified diastolic (congestive) heart failure Status: Chronic Assessment and Plan: Continue metoprolol Continue spironolactone Continue Bumex (4) COPD (chronic obstructive pulmonary disease): Code(s): J44.9 - Chronic obstructive pulmonary disease, unspecified Status: Chronic Assessment and Plan: P.r.n. Xopenex (5) Atrial fibrillation: Qualifiers: Atrial fibrillation type: persistent (not longstanding) Qualified Code(s): I48.19 - Other persistent atrial fibrillation Code(s): I48.91 - Unspecified atrial fibrillation Status: Chronic Assessment and Plan: Continue with aspirin and metoprolol (6) Arrhythmia: Code(s): I49.9 - Cardiac arrhythmia, unspecified Status: Acute Assessment and Plan: Appreciate cardiology consultation, stable, rate controlled Cardiology is recommending the Watchman/ambulate device due to inability to tolerate anticoagulation, patient will think about it and follow-up outpatient with Dr. Colby (7) Choledocholithiasis: Code(s): K80.50 - Calculus of bile duct without cholangitis or cholecystitis without obstruction Status: Acute Assessment and Plan: Appreciate GI consultation MRCP 09/16 showed 7 mm stone in the CBD with dilation, acute cholecystitis and cirrh
[2022-09-20] MEDS: HYDROcodone/acetaminophen (*CRX) 5-325 MG TABLET 1 TAB PO ×2 (13:35→17:36)
[2022-09-20 14:35] VITALS: BP 100/54; PULSE 63; RESP 18; TEMP 36.1; O2SAT 97
--- NOTE | 2022-09-20 14:46 | WPDGIPROGNO ---
Progress Note: A&P Assessment and Plan (1) Choledocholithiasis: Code(s): K80.50 - Calculus of bile duct without cholangitis or cholecystitis without obstruction Status: Acute Assessment and Plan: ERCP removed several large common bile duct gallstones from the common bile duct. LFTs now improving. Patient asymptomatic with no abdominal pain. Continue to monitor LFTs after discharge. (2) Gallstones: Code(s): K80.20 - Calculus of gallbladder without cholecystitis without obstruction Status: Acute Assessment and Plan: Gallstones identified. Ultimately cholecystectomy will be beneficial. Patient to follow-up with surgery for this ultimately (3) Elevated LFTs: Code(s): R79.89 - Other specified abnormal findings of blood chemistry Status: Acute Assessment and Plan: patient's LFTs continue to improve after removal of common bile duct gallstones. Continue to monitor 1 week after discharge to ensure complete resolution. (4) Chronic alcohol use: Code(s): F10.90 - Alcohol use, unspecified, uncomplicated Status: Acute Assessment and Plan: Patient felt to have underlying cirrhosis on the basis of alcohol use. Continue supportive care for now. (5) NSVT (nonsustained ventricular tachycardia): Code(s): I47.29 - Other ventricular tachycardia Status: Acute (6) Acute CVA (cerebrovascular accident): Code(s): I63.9 - Cerebral infarction, unspecified Status: Acute Subjective Date/time seen: 09/20/22 14:46 Interval history: patient alert comfortable today. Tolerating diet. No ongoing abdominal pain reported. Review of Systems Review of Systems: Review of systems noncontributory. Exam Narrative: Physical exam reveals patient to be alert. Vital signs stable. HEENT exam is unremarkable. Patient is anicteric. Lungs are clear. Heart without murmur. Abdomen is obese. Bowel sounds are present soft nontender with no organomegaly. Objective Data Vital Signs Vital Signs: Vital Signs - 24 hr 09/19/22 15:33 09/19/22 20:00 09/19/22 21:58 Temperature 97.8 F 97.7 F Pulse Rate 61 61 Respiratory Rate 16 14 Blood Pressure 118/56 L 133/61 Pulse Oximetry 98 99 Oxygen Delivery Room Air 09/20/22 06:00 09/20/22 08:02 09/20/22 14:35 Temperature 97.1 F L 97.0 F L Pulse Rate 75 80 63 Respiratory Rate 14 18 Blood Pressure 139/57 L 100/54 L Pulse Oximetry 95 97 Oxygen Delivery Intake/Output Intake/Output: Intake & Output 09/17/22 09/18/22 09/19/22 09/20/22 23:59 23:59 23:59 23:59 Intake Total 6183 872 7915 1630 Output Total 1000 600 Balance 0 -260 2160 1630 Meds/Results Medications: Active Medications Generic Name Dose Route Start Last Admin Trade Name Freq PRN Reason Stop Dose Admin Acetaminophen 650 mg 09/12/22 13:09 09/20/22 12:07 Acetaminophen 325 Mg Tablet PO 650 mg Q6H PRN Administration Mild Pain (1-3) or Fever Hydrocodone Bitart/Acetaminophen 1 tab 09/13/22 10:16 09/20/22 13:35 Hydrocodone/Acetaminophen (*Crx) 5-325 Mg Tablet PO 1 tab Q4H PRN Administration Pain Rated 4-6 Amlodipine Besylate 5 mg 09/12/22 09:00 09/20/22 08:03 Amlodipine Besylate 5 Mg Tablet PO 5 mg DAILY ZULEIKA Administration Aspirin 325 mg 09/12/22 09:00 09/20/22 08:02 Aspirin 325 Mg Tablet PO 325 mg DAILY ZULEIKA Administration Atorvastatin Calcium 80 mg 09/13/22 09:00 09/20/22 08:03 Atorvastatin 40 Mg Tablet PO 80 mg DAILY ZULEIKA Administration Bumetanide 2 mg 09/12/22 09:00 09/20/22 08:02 Bumetanide 1 Mg Tablet PO 2 mg BID ZULEIKA Administration Docusate Sodium 100 mg 09/16/22 21:00 09/20/22 08:02 Docusate Sodium 100 Mg Capsule PO 100 mg Q12HR ZULEIKA Administration Ezetimibe 10 mg 09/12/22 09:00 09/20/22 08:02 Ezetimibe 10 Mg Tablet PO 10 mg DAILY ZULEIKA Administration Sodium Chloride 1,000 mls @ 100 mls/hr 09/19/22 11:
[2022-09-20 23:26] VITALS: BP 107/54; PULSE 62; RESP 18; TEMP 35.8; O2SAT 96
[2022-09-21] MEDS: SODIUM CHLORIDE 0.9% IV 1,000 ML 100 ML IV CONT (03:24)
[2022-09-21 06:26] VITALS: BP 113/50; PULSE 63; RESP 14; TEMP 35.9; O2SAT 96
[2022-09-21 06:31] LABS: Basophils Percent Auto 0.1 % (0.2-1.2); Eosinophils Absolute Auto 0.1 K/mm3 (0-0.3); Eosinophils Percent Auto 1.3 % (0-4.4); Hematocrit 36.3 % (37.0-47.0); Hemoglobin 11.7 g/dL (12.0-15.0); Immature Granulocyte Absolute 0.06 K/mm3 (0.00-0.031); Immature Granulocyte Percent A 0.6 % (0-0.5); Lymphocytes Percent Auto 10.5 % (18.3-44.2); Mean Corpuscular HGB Conc 32.2 g/dl (32-36); Mean Corpuscular Hemoglobin 27.3 pg (26-34); Mean Corpuscular Volume 84.8 fl (80-100); Mean Platelet Volume 11.3 fl (7.4-10.4); Monocytes Percent Auto 9.6 % (2.6-8.5); Neutrophils Absolute Auto 8.2 K/mm3 (1.3-6.7); Neutrophils Percent Auto 77.9 % (45.5-73.1); Platelet Count Result 183 k/mm3 (150-375); Red Blood Count 4.28 M/mm3 (4.2-5.4); Red Cell Distribution Width 14.7 % (11.5-14.5); White Blood Count 10.5 K/mm3 (4.5-10.0)
[2022-09-21 06:43] LABS: Alanine Aminotransferase 121 U/L (6-35); Albumin Level 3.1 g/dL (3.5-5.1); Alkaline Phosphatase 441 U/L (38-126); Anion Gap 4 mmol/L (8-16); Aspartate Amino Transferase 123 U/L (14-36); Blood Urea Nitrogen 31 mg/dL (7-17); Calcium 7.9 mg/dL (8.4-10.2); Carbon Dioxide 30 mmol/L (22-30); Chloride 96 mmol/L (98-107); Estimated CRCL calculation 32 ml/min; Estimated Glomerular Filt Rate 37; Glucose 158 mg/dL (65-110); Magnesium 2.4 mg/dL (1.6-2.3); Sodium 130 mmol/L (137-145)
[2022-09-21] MEDS: polyethylene glycoL 3350 17 GM POWD.PACK PO (08:05)
[2022-09-21] MEDS: SUCRALFATE SUSP 100 MG/ML 10 ML UDC 1000 MG PO ×2 (08:05→13:19)
[2022-09-21] MEDS: PANTOPRAZOLE 40 MG TABLET PO (08:06)
[2022-09-21] MEDS: BUMETANIDE 1 MG TABLET 2 MG PO (08:06)
[2022-09-21] MEDS: ATORVASTATIN 40 MG TABLET 80 MG PO (08:06)
[2022-09-21] MEDS: EZETIMIBE 10 MG TABLET PO (08:07)
[2022-09-21] MEDS: amLODIPine BESYLATE 5 MG TABLET PO (08:07)
[2022-09-21] MEDS: POTASSIUM CHLORIDE 10 MEQ TABLET.ER PO (08:07)
[2022-09-21] MEDS: ASPIRIN 325 MG TABLET PO (08:07)
[2022-09-21 08:08] VITALS: PULSE 64
[2022-09-21] MEDS: METOPROLOL TARTRATE 50 MG TAB PO (08:08)
[2022-09-21] MEDS: NICOTINE (*PBKC) 21 MG PATCH 1 PATCH TRANSDERM (08:13)
[2022-09-21] MEDS: DOCUSATE SODIUM 100 MG CAPSULE PO (08:14)
[2022-09-21] MEDS: SPIRONOLACTONE 25 MG TABLET PO (08:14)
[2022-09-21] MEDS: POTASSIUM CHLORIDE 20 MEQ TABLET 40 MEQ PO (08:31)
--- NOTE | 2022-09-21 09:08 | WPDGIPROGNO ---
Progress Note: A&P Assessment and Plan (1) Gallstones: Code(s): K80.20 - Calculus of gallbladder without cholecystitis without obstruction Status: Acute Assessment and Plan: Patient with gallstones. Status post ERCP and removal of several common bile duct gallstones. Patient will follow up with surgery for cholecystectomy as an outpatient. Continue to monitor LFTs till resolution. (2) Elevated LFTs: Code(s): R79.89 - Other specified abnormal findings of blood chemistry Status: Acute Assessment and Plan: LFTs 1 week after discharge to ensure that continue to improve. LFTs have gradually improved after ERCP and removal of common bile duct gallstones. (3) Acute CVA (cerebrovascular accident): Code(s): I63.9 - Cerebral infarction, unspecified Status: Acute Assessment and Plan: Patient recovering after recent CVA. Follow-up per primary care service. (4) Cirrhosis: Code(s): K74.60 - Unspecified cirrhosis of liver Status: Acute Assessment and Plan: Patient has a history of ongoing regular alcohol use. She is found to have underlying cirrhosis on this basis. Supportive care for now. This may contribute to underlying LFT abnormalities. Subjective Date/time seen: 09/21/22 09:08 Interval history: Patient alert comfortable this morning. She denies abdominal pain. No fever reported. Review of Systems Review of Systems: Review of systems noncontributory. Exam Narrative: Physical exam reveals patient be alert. HEENT exam unremarkable. Lungs are clear. Heart without murmur. Abdomen bowel sounds are present soft no localized tenderness. No organomegaly. Objective Data Vital Signs Vital Signs: Vital Signs - 24 hr 09/20/22 14:35 09/20/22 20:00 09/20/22 23:26 Temperature 97.0 F L 96.5 F L Pulse Rate 63 62 Respiratory Rate 18 18 Blood Pressure 100/54 L 107/54 L Pulse Oximetry 97 96 Oxygen Delivery Room Air 09/21/22 06:26 09/21/22 08:08 Temperature 96.7 F L Pulse Rate 63 64 Respiratory Rate 14 Blood Pressure 113/50 L Pulse Oximetry 96 Oxygen Delivery Intake/Output Intake/Output: Intake & Output 09/18/22 09/19/22 09/20/22 09/21/22 23:59 23:59 23:59 23:59 Intake Total 340 2160 3110 1150 Output Total 600 Balance -260 2160 3110 1150 Meds/Results Medications: Active Medications Generic Name Dose Route Start Last Admin Trade Name Guevaraq PRN Reason Stop Dose Admin Acetaminophen 650 mg 09/12/22 13:09 09/20/22 12:07 Acetaminophen 325 Mg Tablet PO 650 mg Q6H PRN Administration Mild Pain (1-3) or Fever Hydrocodone Bitart/Acetaminophen 1 tab 09/13/22 10:16 09/20/22 17:36 Hydrocodone/Acetaminophen (*Crx) 5-325 Mg Tablet PO 1 tab Q4H PRN Administration Pain Rated 4-6 Amlodipine Besylate 5 mg 09/12/22 09:00 09/21/22 08:07 Amlodipine Besylate 5 Mg Tablet PO 5 mg DAILY ZULEIKA Administration Aspirin 325 mg 09/12/22 09:00 09/21/22 08:07 Aspirin 325 Mg Tablet PO 325 mg DAILY ZULEIKA Administration Atorvastatin Calcium 80 mg 09/13/22 09:00 09/21/22 08:06 Atorvastatin 40 Mg Tablet PO 80 mg DAILY ZULEIKA Administration Bumetanide 2 mg 09/12/22 09:00 09/21/22 08:06 Bumetanide 1 Mg Tablet PO 2 mg BID ZULEIKA Administration Docusate Sodium 100 mg 09/16/22 21:00 09/21/22 08:14 Docusate Sodium 100 Mg Capsule PO 100 mg Q12HR ZULEIKA Administration Ezetimibe 10 mg 09/12/22 09:00 09/21/22 08:07 Ezetimibe 10 Mg Tablet PO 10 mg DAILY ZULEIKA Administration Sodium Chloride 1,000 mls @ 100 mls/hr 09/19/22 11:45 09/21/22 03:24 Normal Saline Iv IV CONT 100 mls/hr .Q10H ZULEIKA Administration Magnesium Oxide 400 mg 09/12/22 09:00 09/21/22 08:06 Magnesium Oxide 400 Mg Tablet PO Not Given DAILY ZULEIKA Metoprolol Tartrate 50 mg 09/13/22 21:00 09/21/22 08:08 Metoprolol Tartrate 50 Mg Tab PO 50 mg Q12HR ZULEIKA Adminis
--- NOTE | 2022-09-21 10:23 | PM.DS ---
DS: Admitting Diagnosis Discharge Date 09/21/2022 Admitting Diagnosis Fall DS: Discharge Diagnosis Discharge Diagnosis (1) Acute CVA (cerebrovascular accident): Code(s): I63.9 - Cerebral infarction, unspecified Status: Acute Assessment and Plan: PT/OT evaluation, increase lipitor to 80 mg, aspirin, Plavix Appreciate neurology consultation, echo w/bubble pending MRI brain 09/12 showed acute CVA medial right temporal occipital region extending into the posterior right basal ganglia patient appears icteric and LFT were increased with total bili of 8.2 and abdominal US is suspicious for gallsones but not acute cholecystitis, MRCP showed 7 mm stone in the common bile duct with common duct dilation,today patient had ERCP and stones were removed from bile duct, patient is doing well eating, and acute cholecystitis, will consult surgery service, today patient LFT are trending up and her total bili is 6.5 prior to ERCP, patient clinical symptoms are improving will continue to monitor 09/18: LFTs improving, symptoms improving, cont to monitor, appreciate GI and surgery consultations 09/20/2022 interval history: presented with CVA and placed on aspirin and Statin, patient clinical symptoms are stable, also patient has A. Fib seen by junior copywriter recommended continue high dose aspirin, and BB for rate control and patient remains clinically stable, however patient appears icteric and LFT were increased with total bili of 8.2 and abdominal US is suspicious for gallsones but not acute cholecystitis, MRCP showed 7 mm stone in the common bile duct with common duct dilation, on 09/17 ? patient had? ERCP and several large stones were removed from bile duct, patient is doing well eating, ? and acute cholecystitis, seen by surgery service does not recommend cholecystectomy patient is on anti-platelet for CVA, once clinically stable may reconsider cholecystectomy, patient BUN creatinine arising most likely secondary to poor p.o. intake due to the procedure, will gently hydrate the patient and monitor, today patient LFT are trending down?and her total bili is 2.9 today compared to 8.2 on 09/14 patient clinical symptoms are improving? will continue to monitor, patient will benefit going to [facility] rehab. patient with A.fib, is not a candidate for anticoagulation, (2) Hyperlipidemia: Code(s): E78.5 - Hyperlipidemia, unspecified Status: Chronic Assessment and Plan: Continue with Zetia and Lipitor (3) Diastolic congestive heart failure: Qualifiers: Heart failure chronicity: chronic Qualified Code(s): I50.32 - Chronic diastolic (congestive) heart failure Code(s): I50.30 - Unspecified diastolic (congestive) heart failure Status: Chronic Assessment and Plan: Continue metoprolol Continue spironolactone Continue Bumex (4) COPD (chronic obstructive pulmonary disease): Code(s): J44.9 - Chronic obstructive pulmonary disease, unspecified Status: Chronic Assessment and Plan: P.r.n. Xopenex (5) Atrial fibrillation: Qualifiers: Atrial fibrillation type: persistent (not longstanding) Qualified Code(s): I48.19 - Other persistent atrial fibrillation Code(s): I48.91 - Unspecified atrial fibrillation Status: Chronic Assessment and Plan: Continue with aspirin and metoprolol (6) Arrhythmia: Code(s): I49.9 - Cardiac arrhythmia, unspecified Status: Acute Assessment and Plan: Appreciate cardiology consultation, stable, rate controlled Cardiology is recommending the Watchman/ambulate device due to inability to tolerate anticoagulation, patient will think about it and follow-up outpatient with Dr. Colby (7) Choledocholithiasis: Code(s): K80.50 - Calculus of bile duct without cholangitis or cholecystitis without obstruction Status: Acute Assessment and Plan: Appreciate GI consult
--- NOTE | 2022-09-21 13:34 | PCOTNOTE ---
Addendum entered by Jennifer Walsh, OT 09/21/22 13:35: Attempted occupational therapy treatment on this date Original Note: Attempted to see pt. for occupational therapy evaluation. Pt. plans to d/c today.
[2022-09-21] MEDS: HYDROcodone/acetaminophen (*CRX) 5-325 MG TABLET 1 TAB PO (14:21)
== END 2022-09-21 14:25 | DRG 65 ==
LOC: ANHED 14:52 → ANH3MEDSUR 17:30 → ANHIMU 19:43 → ANH3MEDSUR 09-17 21:52
PROVIDERS: Internal Medicine Gastroenterology; Nurse Practitioner; Student in an Organized Health Care Education/Training Program; Admitting Provider Family Medicine; Emergency Provider Emergency Medicine; PCP Internal Medicine; Visit Provider Family Medicine
PROC: 0FC98ZZ Extirpation of Matter from Common Bile Duct, Via Natural or Artificial Opening Endoscopic (ICD-10-PCS; CPT 43260; principal; 2022-09-17 13:30)
DX: I63.9 Cerebral infarction, unspecified (principal); G81.94 Hemiplegia, unspecified affecting left nondominant side; I50.32 Chronic diastolic (congestive) heart failure; I48.19 Other persistent atrial fibrillation; K80.42 Calculus of bile duct with acute cholecystitis without obstruction; I47.29 Other ventricular tachycardia; H53.8 Other visual disturbances; E78.5 Hyperlipidemia, unspecified; I11.0 Hypertensive heart disease with heart failure; J44.9 Chronic obstructive pulmonary disease, unspecified; F17.210 Nicotine dependence, cigarettes, uncomplicated; Z88.5 Allergy status to narcotic agent; Z79.899 Other long term (current) drug therapy
CPT/HCPCS: 36415; 70450; 70496; 70498; 70553; 73521; 73560; 74183; 74329; 76376; 76700; 80053; 81001; 82140; 82247; 82248; 82948; 83036; 83605; 83690; 83735; 84100; 84443; 84484; 85025; 85610; 85730; 93005; 93308; 96375; 97110; 97112; 97116; 97161; 97165; 97530; 97535; 99285; A9270; A9577; C8929; J0330; J1100; J1956; J2405; J2704; J3010; J7030; J7120; Q9957; Q9966; Q9967

== ENCOUNTER 2022-10-10 11:55 | Outpatient (RCR) | payer OTHER, SELFPAY ==
[2022-10-10 12:21] LABS: Hemoglobin A1C 7.3 % (<5.7)
== END 2023-01-08 23:59 | disposition home or self-care (01) ==
LOC: HOME HLTH 11:55
PROVIDERS: PCP Internal Medicine; Visit Provider Physician Assistant
DX: E11.22 Type 2 diabetes mellitus with diabetic chronic kidney disease (principal)
CPT/HCPCS: 83036

== ENCOUNTER 2022-11-09 10:17 | Outpatient (RCR) | payer OTHER, SELFPAY ==
[2022-11-09 10:58] LABS: Alanine Aminotransferase 24 U/L (6-35); Albumin Level 3.8 g/dL (3.5-5.1); Alkaline Phosphatase 103 U/L (38-126); Anion Gap 6 mmol/L (8-16); Aspartate Amino Transferase 30 U/L (14-36); Bilirubin,Total 0.8 mg/dL (0.2-1.3); Blood Urea Nitrogen 27 mg/dL (7-17); Calcium 9.1 mg/dL (8.4-10.2); Carbon Dioxide 26 mmol/L (22-30); Chloride 103 mmol/L (98-107); Estimated Glomerular Filt Rate 40; Glucose 120 mg/dL (65-110); Potassium 4.2 mmol/L (3.4-5.0); Sodium 135 mmol/L (137-145)
== END 2023-02-07 23:59 | disposition home or self-care (01) ==
LOC: HOME HLTH 10:17
PROVIDERS: PCP Internal Medicine; Visit Provider Physician Assistant
DX: N18.30 Chronic kidney disease, stage 3 unspecified (principal)
CPT/HCPCS: 80053

== ENCOUNTER 2023-09-08 04:08 | Emergency (ER) | payer OTHER, SELFPAY ==
[2023-09-08] VITALS (8 sets, daily range): BP systolic 139–144; BP diastolic 61–70; PULSE 54–70; RESP 16–23; TEMP 36.5–36.8; O2SAT 91–98
--- NOTE | ~2023-09-08 | XR_ITS ---
XR hip LT 2V w AP pelvis DATE: 09/08/2023 05:14 INDICATION: Fall. Left hip pain. TECHNIQUE: AP pelvis. AP and lateral views of left hip COMPARISON: September 11, 2022 pelvis and bilateral hips FINDINGS: There is severe degenerative disc disease at included L2-3 through L5-S1. Normal alignment at the pubic symphysis and sacroiliac joints. No pelvic fracture or bone destruction is detected. No fracture, dislocation, avascular necrosis or bone destruction of the left hip. Abdominal aortic, bilateral common iliac and femoral artery calcifications. IMPRESSION: No pelvic or left hip fracture Multilevel severe degenerative disc disease Reviewed, dictated and finalized at location A.
--- NOTE | ~2023-09-08 | XR_ITS ---
XR chest 1V DATE: 09/08/2023 05:14 INDICATION: Altered mental state TECHNIQUE: AP chest COMPARISON: None FINDINGS: Borderline heart size. Mitral annulus calcification. Aortic arch calcification. There is pr ominent bilateral subclavian artery and left brachial artery calcification. No hilar or mediastinal enlargement is detected. Bilateral hyperinflation. No pulmonary infiltrate or consolidation, pleural effusion or pulmonary vas cular congestion or pneumothorax is noted. Osteopenia. IMPRESSION: Borderline heart size Moderate bilateral hyperinflation; no active pulmonary disease Osteopenia Reviewed, dictated and finalized at location A.
--- NOTE | ~2023-09-08 | XR_ITS ---
XR knee LT 3V DATE: 09/08/2023 05:14 INDICATION: Fall. Pain. TECHNIQUE: 3 views COMPARISON: None FINDINGS: There is osteopenia. No fracture or dislocation or joint effusion is detected. No periosteal reaction or bone destruction. There is severe medial compartment joint space narrowing and periarticular spurring. There is chondro calcinosis. There is extensive calcification of the femoral, popliteal and trifurcation arteries. IMPRESSION: Osteoarthritis affecting particularly the medial compartment Clinical stenosis Osteopenia Reviewed, dictated and finalized at location A.
--- NOTE | 2023-09-08 04:11 | ED.FALL ---
HPI - Fall General Chief Complaint: Fall Stated Complaint: glf left hip a+o x 1-2 Source: patient and EMS Mode of arrival: EMS History of Present Illness HPI Narrative: 72-year-old female who presents after falling out of bed. Patient states she remembers falling. Was between the bed and the dresser. She did urinate on herself and has a history of urinary tract infections. She is complaining of pain to her left hip, left knee, left femur. Not on anticoagulation. Point of care glucose 104 mg/dL per EMS. Related Data Home Medications Medication Instructions Recorded Confirmed magnesium oxide 400 mg (241.3 mg 400 mg PO DAILY 04/25/19 10/16/22 magnesium) tablet (MagOx) aspirin 325 mg tablet 325 mg PO DAILY 10/16/22 10/16/22 Allergies Allergy/AdvReac Type Severity Reaction Status Date / Time codeine Allergy Intermediate Hives Verified 09/08/23 04:13 meperidine Allergy Intermediate Hives Verified 09/08/23 04:13 propoxyphene Allergy Intermediate Hives Verified 09/08/23 04:13 hydromorphone AdvReac Intermediate Hives Verified 09/08/23 04:13 KETCHUP Allergy Severe Hives, Uncoded 03/05/23 08:03 swelling Rum Allergy Unknown Hives, Uncoded 03/05/23 08:03 rum Allergy Unknown Unknown Uncoded 03/05/23 08:03 PMF Past Medical History Medical History Acute blood loss anemia Acute renal insufficiency Chronic renal failure Anemia Aortic valve stenosis Atrial fibrillation Paroxysmal AVM (arteriovenous malformation) of stomach, acquired Basal cell carcinoma Cirrhosis noted by CT scan in 2018 with portal venous hypertension Colon, diverticulosis COPD (chronic obstructive pulmonary disease) Diastolic congestive heart failure Encounter for removal of skin lesion H/O: GI bleed 2018 History of obstructive sleep apnea Intolerant of the CPAP History of recurrent UTIs Hypercholesterolemia Hyperlipidemia Hypertensive heart disease Moderate aortic valve stenosis Paroxysmal atrial fibrillation Pulmonary hypertension Seizure Type 2 diabetes mellitus Surgical History Surgical History H/O arthroscopy of left knee H/O dilation and curettage H/O rectal polypectomy H/O shoulder surgery Bilateral pens that were later removed. H/O: hysterectomy History of Chelly fundoplication History of tonsillectomy Family History Family History Sibling Cerebrovascular accident, Onset Age: 60 Brother and sister Family history of renal failure Patient's sister is Patient's brother is Hypertension Brother Diabetes mellitus Brother and sister Mother Patient's mother is Family history of diabetes mellitus in first degree relative Heart disease Father Family history of malignant neoplasm, Onset Age: 88 Leukemia Hypertension Social History Social History Social History: The patient lives with her Pawan who is a durable power claims attorney for healthcare. The patient desires to be a full code. Her son Trev is her only child. She worked at [employer] adult and children. She smokes 3-5 cigarettes a day. She occasionally has a Ingris with a [place]an food. Smoking packs per day: 0.5 Smoking cigarettes per day: 10.0 Years smoked: 50 Smoking pack-years: 25.00 Smoking status: Unknown if ever smoked Tobacco type: cigarettes Second hand tobacco smoke exposure: No Smoking end date: 06/10/16 Alcohol intake: current Drinks per week: 7 Substance use: unknown Substance use type: does not use Other substance usage details: daily drinker Lack of Transportation: No Lack of Food: Never True Current Housing: I Have Housing Concerned About Future Housing: No Difficulty Paying Gas/Electr
--- NOTE | 2023-09-08 04:13 | ECG_ITS ---
Measurements Intervals [place] Rate: 67 P: ND: 0 QRS: -12 QRSD: 102 T: 41 QT: 448 QTc: 476 Interpretive Statements ATRIAL FIBRILLATION BORDERLINE R WAVE PROGRESSION, ANTERIOR LEADS PEAKED T WAVES- CONSIDER HYPERKALEMIA BORDERLINE ST-T WAVE ABNORMALITY- INFERIOR LEADS BASELINE ARTIFACT- I, II, III, AVR, AVL, AVF, V1, V3-V4 ABNORMAL ECG COMPARED TO ECG 09/19/2022 14:05:48 PEAKED T WAVES NOW PRESENT Electronically Signed On 09-08-2023 19:42:22 CDT by Bladimir Stein D.O.
[2023-09-08] MEDS: ACETAMINOPHEN 500 MG TABLET 1000 MG PO (04:26)
[2023-09-08 04:45] LABS: Appearance Urine Clear (Clear); Bilirubin Urine Negative (Negative); Blood Urine Negative (Negative); Color Urine Yellow (Yellow); Glucose Urine UA 3+ mg/dL (Negative); Ketones Urine Negative (Negative); Leukocyte Esterase Ur Negative LEU/UL (Negative); Nitrate Urine Negative (Negative); Protein Urine Negative (Negative); Specific Grav Ur 1.013 (1.001-1.035); Urobilinogen Urine 0.2 mg/dL (<2.0); pH Urine 5.5 (5.0-9.0)
[2023-09-08 04:47] LABS: Basophils Percent Auto 0.5 % (0.2-1.2); Eosinophils Absolute Auto 0.2 K/mm3 (0-0.3); Hematocrit 45.3 % (37.0-47.0); Hemoglobin 14.5 g/dL (12.0-15.0); Immature Granulocyte Absolute 0.03 K/mm3 (0.00-0.031); Immature Granulocyte Percent A 0.5 % (0-0.5); Immature Platelet Fraction Pct 4.5 % (0.9-11.2); Lymphocytes Absolute Auto 1.67 K/mm3 (0.9-3.2); Lymphocytes Percent Auto 29.5 % (18.3-44.2); Mean Corpuscular Hemoglobin 29.1 pg (26-34); Mean Platelet Volume 9.9 fl (7.4-10.4); Monocytes Absolute Auto 0.3 K/mm3 (0.1-0.6); Monocytes Percent Auto 5.5 % (2.6-8.5); Neutrophils Absolute Auto 3.5 K/mm3 (1.3-6.7); Platelet Count Result 140 k/mm3 (150-375); Red Blood Count 4.98 M/mm3 (4.2-5.4); Red Cell Distribution Width 15.5 % (11.5-14.5); White Blood Count 5.7 K/mm3 (4.5-10.0)
[2023-09-08 04:54] LABS: Add Urine Microscopic? NO
[2023-09-08 04:56] LABS: Alanine Aminotransferase 26 U/L (6-35); Albumin Level 4.1 g/dL (3.5-5.1); Alkaline Phosphatase 93 U/L (38-126); Anion Gap 6 mmol/L (4-12); Aspartate Amino Transferase 36 U/L (14-36); Bilirubin,Total 0.8 mg/dL (0.2-1.3); Blood Urea Nitrogen 19 mg/dL (7-17); Calcium 9.6 mg/dL (8.4-10.2); Carbon Dioxide 27 mmol/L (22-30); Chloride 108 mmol/L (98-107); Estimated CRCL calculation 34 ml/min; Estimated Glomerular Filt Rate 40; Glucose 123 mg/dL (65-110); Potassium 4.4 mmol/L (3.4-5.0); Sodium 141 mmol/L (137-145)
== END 2023-09-08 08:00 | disposition home or self-care (01) ==
PROVIDERS: Emergency Provider Student in an Organized Health Care Education/Training Program; PCP Internal Medicine
DX: M17.12 Unilateral primary osteoarthritis, left knee (principal); M51.36 Other intervertebral disc degeneration, lumbar region; N18.30 Chronic kidney disease, stage 3 unspecified; W06.XXXA Fall from bed, initial encounter; M85.80 Other specified disorders of bone density and structure, unspecified site; I48.0 Paroxysmal atrial fibrillation; I50.30 Unspecified diastolic (congestive) heart failure; E78.5 Hyperlipidemia, unspecified; Z87.891 Personal history of nicotine dependence; E11.22 Type 2 diabetes mellitus with diabetic chronic kidney disease; D69.6 Thrombocytopenia, unspecified
CPT/HCPCS: 36415; 71045; 73502; 73562; 80053; 81003; 85025; 85055; 93005; 99284; A9270

== ENCOUNTER 2023-11-14 06:11 | Inpatient (IN) | payer OTHER, SELFPAY ==
[2023-11-14] VITALS (19 sets, daily range): BP systolic 130–187; BP diastolic 60–93; PULSE 73–95; RESP 18–37; TEMP 36.1–36.4; O2SAT 90–99; BMI 20.1
--- NOTE | ~2023-11-14 | XR_ITS ---
Portable chest x-ray Comparison: 09/08/2023 Clinical History: Altered mental status Findings: Lungs are clear, without focal consolidation or pleural effusion. Cardiomediastinal silho uette is stable, with stable extensive mitral annular calcification. Bones and soft tissues are unrem arkable. Impression: Clear lungs. Reviewed, dictated and finalized at location . Impression: Clear lungs.
--- NOTE | ~2023-11-14 | CT_ITS ---
CT head without contrast Indication: Altered mental status COMPARISON: 09/11/2022 Technique: Serial scans were obtained through the brain without the administration of contrast. Dose reduction technique was used on this scan by utilizing automated exposure control and iterative recon struction technique. The dose-length product (DLP) was 681.00 mGy-cm. Findings: There is probable left temporal lobe parenchymal mass, measuring approximately 2.2 x 1.3 x 2.7 cm (coronal image 49), with surrounding vasogenic edema. No definite acute infarct or acute intra cranial hemorrhage.. Prominent chronic left frontal lobe infarct is unchanged from prior exam. The ve ntricles and subarachnoid spaces are dilated, consistent with moderate atrophy. Low attenuation francesca ons are seen within the periventricular white matter bilaterally, likely representing changes from ch ronic microvascular ischemic disease. There is no evidence of edema, mass effect or midline shift. The visualized paranasal sinuses and mastoid air cells are clear. Impression: 2.2 x 1.3 x 2.7 cm parenchymal left temporal lobe mass with surrounding vasogenic edema. Statisticall y, this is most likely a metastatic lesion. Pre and postcontrast MR should be considered to better de lineate the lesion, and to better assess for any other smaller lesions. Stable chronic left frontal lobe infarct. Atrophy and chronic white matter changes, as above. Reviewed, dictated and finalized at [facility]. Impression: 2.2 x 1.3 x 2.7 cm parenchymal left temporal lobe mass with surrounding vasogen ic edema. Statistically, this is most likely a metastatic lesion. Pre and postc ontrast MR should be considered to better delineate the lesion, and to better a ssess for any other smaller lesions. Stable chronic left frontal lobe infarct. Atrophy and chronic white matter changes, as above.
--- NOTE | 2023-11-14 06:42 | PC.NURSE ---
Pt came in covered in old and new feces and urine from 3 days ago. This RN cleaned her up and placed her in new sheets, gown, diaper, and placed mat underneath her. We are unable to get any information from her other than what EMS gave us. Pt is uncooperative and just screams when being talked to or tells us just stop it leave me alone . Unable to grab height and weight on her due to her being A&Ox0. Pt does supposedly live with her at home. EMS states that the made the comment I guess I could have called a few days ago .
--- NOTE | 2023-11-14 07:08 | ECG_ITS ---
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 Measurements Intervals [place] Rate: 111 P: 0 NC: 0 QRS: -45 QRSD: 94 T: 104 QT: 361 QTc: 492 Interpretive Statements ATRIAL FIBRILLATION WITH RAPID VENTRICULAR RESPONSE MARKED LEFT AXIS DEVIATION [QRS AXIS < -30] ST DEVIATION AND MODERATE T-WAVE ABNORMALITY, CONSIDER LATERAL ISCHEMIA [-0.1+ mV T WAVE IN I/aVL/V5/V6] No previous ECG available for comparison Electronically Signed On 11-14-2023 13:42:58 CDT by Tamiko Beltran M.D.
--- NOTE | 2023-11-14 07:28 | ED.GENADULT ---
HPI - General Adult General Chief complaint: Unspecified Stated complaint: failure to thrive Time Seen by Provider: 11/14/23 07:24 History of Present Illness HPI narrative: Pt presents from home for failure to thrive. Pt laying in bed not eating or drinking and covered in her own feces and urine. Pt lives at home with . Pt not able to provide history. just cries and yells when asked questions. Related Data Home Medications Medication Instructions Recorded Confirmed magnesium oxide 400 mg (241.3 mg 400 mg PO DAILY 04/25/19 10/14/23 magnesium) tablet (MagOx) aspirin 325 mg tablet 325 mg PO DAILY 10/16/22 10/14/23 Allergies Allergy/AdvReac Type Severity Reaction Status Date / Time codeine Allergy Intermediate Hives Verified 11/14/23 06:40 meperidine Allergy Intermediate Hives Verified 11/14/23 06:40 propoxyphene Allergy Intermediate Hives Verified 11/14/23 06:40 hydromorphone AdvReac Intermediate Hives Verified 11/14/23 06:40 KETCHUP Allergy Severe Hives, Uncoded 11/14/23 06:40 swelling Rum Allergy Unknown Hives, Uncoded 11/14/23 06:40 rum Allergy Unknown Unknown Uncoded 11/14/23 06:40 Review of Systems Review of Systems: All systems reviewed & are unremarkable except as noted in HPI and below PMFSH Past Medical History Medical History Acute blood loss anemia Acute renal insufficiency Chronic renal failure Anemia Aortic valve stenosis Atrial fibrillation Paroxysmal AVM (arteriovenous malformation) of stomach, acquired Basal cell carcinoma Cirrhosis noted by CT scan in 2018 with portal venous hypertension Colon, diverticulosis COPD (chronic obstructive pulmonary disease) Diastolic congestive heart failure Encounter for removal of skin lesion H/O: GI bleed 2018 History of obstructive sleep apnea Intolerant of the CPAP History of recurrent UTIs Hypercholesterolemia Hyperlipidemia Hypertensive heart disease Moderate aortic valve stenosis Paroxysmal atrial fibrillation Pulmonary hypertension Seizure Type 2 diabetes mellitus Surgical History Surgical History H/O arthroscopy of left knee H/O dilation and curettage H/O rectal polypectomy H/O shoulder surgery Bilateral pens that were later removed. H/O: hysterectomy History of Chelly fundoplication History of tonsillectomy Family History Family History Sibling Cerebrovascular accident, Onset Age: 60 Brother and sister Family history of renal failure Patient's sister is Patient's brother is Hypertension Brother Diabetes mellitus Brother and sister Mother Patient's mother is Family history of diabetes mellitus in first degree relative Heart disease Father Family history of malignant neoplasm, Onset Age: 88 Leukemia Hypertension Social History Social History Social History: The patient lives with her Pawan who is a durable power banking teacher for healthcare. The patient desires to be a full code. Her son Trev is her only child. She worked at [employer] adult and children. She smokes 3-5 cigarettes a day. She occasionally has a Ingris with a [place] food. Smoking packs per day: 0.5 Smoking cigarettes per day: 10.0 Years smoked: 50 Smoking pack-years: 25.00 Smoking status: Current every day smoker Tobacco type: cigarettes Second hand tobacco smoke exposure: No Smoking end date: 06/10/16 Alcohol intake: current Drinks per week: 7 Substance use: unknown Substance use type: does not use Other substance usage details: daily drinker Lack of Transportation: No Lack of Food: Never True Current Housing: I Have Housing Concerned About Future Housing: No Difficulty Paying Gas/El
[2023-11-14 07:34] LABS: Appearance Urine Cloudy (Clear); Bacteria Urine 4+ /hpf; Bilirubin Urine Negative (Negative); Blood Urine Non-Hemolyzed Trace (Negative); Budding Yeast Urine Present /hpf; Color Urine Dark Yellow (Yellow); Glucose Urine UA 3+ mg/dL (Negative); Ketones Urine 1+ mg/dL (Negative); Leukocyte Esterase Ur Negative LEU/UL (Negative); Nitrate Urine Negative (Negative); Protein Urine 2+ mg/dL (Negative); RBC Urine 21-50 /hpf (0-2); Specific Grav Ur 1.028 (1.001-1.035); Squamous Epithelial Cell Urine Occasional /hpf (Few); pH Urine 5.5 (5.0-9.0)
[2023-11-14 07:35] LABS: Basophils Percent Auto 0.2 % (0.2-1.2); Hemoglobin 16.9 g/dL (12.0-15.0); Immature Granulocyte Absolute 0.06 K/mm3 (0.00-0.031); Immature Granulocyte Percent A 0.5 % (0-0.5); Lymphocytes Absolute Auto 1.02 K/mm3 (0.9-3.2); Lymphocytes Percent Auto 8.3 % (18.3-44.2); Mean Corpuscular HGB Conc 33.1 g/dl (32-36); Mean Corpuscular Hemoglobin 30.6 pg (26-34); Mean Corpuscular Volume 92.4 fl (80-100); Mean Platelet Volume 10.1 fl (7.4-10.4); Monocytes Absolute Auto 1.2 K/mm3 (0.1-0.6); Monocytes Percent Auto 9.5 % (2.6-8.5); Neutrophils Absolute Auto 10.1 K/mm3 (1.3-6.7); Neutrophils Percent Auto 81.5 % (45.5-73.1); Platelet Count Result 174 k/mm3 (150-375); Red Blood Count 5.52 M/mm3 (4.2-5.4); Red Cell Distribution Width 13.1 % (11.5-14.5); White Blood Count 12.3 K/mm3 (4.5-10.0)
[2023-11-14 07:59] LABS: Alanine Aminotransferase 18 U/L (6-35); Albumin Level 4.4 g/dL (3.5-5.1); Alkaline Phosphatase 112 U/L (38-126); Anion Gap 11 mmol/L (4-12); Aspartate Amino Transferase 24 U/L (14-36); Bilirubin,Total 2.4 mg/dL (0.2-1.3); Blood Urea Nitrogen 26 mg/dL (7-17); Carbon Dioxide 24 mmol/L (22-30); Chloride 105 mmol/L (98-107); Estimated Glomerular Filt Rate 55; Glucose 188 mg/dL (65-110); Potassium 4.3 mmol/L (3.4-5.0); Sodium 140 mmol/L (137-145)
--- NOTE | 2023-11-14 08:02 | ECG_ITS ---
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 Measurements Intervals [place] Rate: 96 P: 0 MD: 0 QRS: -40 QRSD: 94 T: 80 QT: 368 QTc: 466 Interpretive Statements ATRIAL FIBRILLATION MARKED LEFT AXIS DEVIATION [QRS AXIS < -30] MODERATE VOLTAGE CRITERIA FOR LVH, CONSIDER NORMAL VARIANT [MEETS CRITERIA IN ONE OF: R(aVL), S(V1), R(V5), R(V5/V6)+S(V1)] NONSPECIFIC ST & T-WAVE ABNORMALITY LATERAL ST DEPRESSIONS HAVE IMPROVED Electronically Signed On 11-14-2023 13:44:56 CDT by Tamiko Beltran M.D.
[2023-11-14 08:18] LABS: Add Urine Microscopic? YES
[2023-11-14] MEDS: cefTRIAXone 2 GM/NS 100 ML 2 GM/100 ML BAG IVPB (11:05)
[2023-11-14] MEDS: levETIRAcetam 1000MG/NACL100ML 1,000 MG/100 ML BAG 400 MG IVPB (11:53)
[2023-11-14] MEDS: dexAMETHasone SOD PHOS INJ 10 MG/ML 1 ML VIAL IV PUSH (11:53)
[2023-11-14] MEDS: MORPHINE SULFATE (*CRX) 2 MG/ML INJ IV PUSH ×2 (12:30→19:28)
[2023-11-14 13:07] LABS: Creatine Kinase 29 U/L (30-135)
[2023-11-14] MEDS: SODIUM CHLORIDE 0.9% IV 500 ML 999 ML IV CONT (14:06)
--- NOTE | 2023-11-14 14:44 | PC.NURSE ---
Hospice here at this time to evaluate patient
--- NOTE | 2023-11-14 16:29 | PCCCNOTE ---
1250: CC called to the ED to speak with pts family regarding hospice care. Pt son at bedside, Pawan, who says he is the POA was given the choice of the different Hospice companies and explained what hospice entails. They [facility] as their first choice. 1315: Contacted Jessica at [facility] for intake. Pt referral faxed with pts record from the ED. 1400: Hodan AGUILAR from Hospice on her way to the ED to evaluate pt for GIP status. 1430: Hodan AGUILAR and Rodney, psychosocial rehabilitation counselor with hospice arrived in the room with the son and step daughter. 1620: Pt is not eligible for GIP status, she will be admitted to our service for UTI. Per Hodan AGUILAR at [facility], they will not have any availability to come back and assess pt for admission for discharge until Saturday. If pt is requiring more Morphine or her condition changes and would be a candidate for GIP, we can call them prior to Saturday. The son, Pawan is aware of all of this and is going to be getting the house ready for her to be able to come back home when she is discharged. Pawan is reachable at [phone]. The spouse is Pawan also, can be reached at [phone]. Pt does not have a medical POA, would be the next of kin.
--- NOTE | 2023-11-14 18:25 | PC.NURSE ---
This patient, Nisha Lu, was admitted to [facility] Surg Room 317-02. Patient/family oriented to hospital policies and general routines including ID bracelet, bed and alarms, visiting hours, pain management, procedures, bathroom and other care routines, personal items, smoking policy, room service/diet, and visiting hours. Information on how to activate the Rapid Response Team has been discussed. Patient/Family are encouraged to report perceived risks to care and to ask questions if they do not understand what they are told or what they should do.
--- NOTE | 2023-11-14 19:39 | ADMGEN ---
This patient, Nisha Lu, was admitted to [facility] Surg Room 317-02. Patient/family oriented to hospital policies and general routines including ID bracelet, bed and alarms, visiting hours, pain management, procedures, bathroom and other care routines, personal items, smoking policy, room service/diet, and visiting hours. Information on how to activate the Rapid Response Team has been discussed. Patient/Family are encouraged to report perceived risks to care and to ask questions if they do not understand what they are told or what they should do.
[2023-11-14] MEDS: SODIUM CHLORIDE 0.9% IV 1,000 ML 75 ML IV CONT (20:35)
--- NOTE | 2023-11-14 22:05 | PM.IMHP ---
H&P: HPI History of Present Illness Date/Time: 11/14/23 22:05 Chief Complaint: Patient brought to the ER for by family with failure to thrive Narrative: Very unfortunate 72 years old lady was brought in by family for evaluation as she is not eating or getting out of her bed for several days. She was found covered the her feces and urine. Workup was done in the ER which showed UTI as well as left temporal lobe mass with surrounding edema. Neurosurgery was consulted who advised patient transfer to [facility]. Patient had a stroke 1 year ago and she has had very poor quality of life which is slowly deteriorating. ER physician discussed with the grandson in detail who is her power of transactional attorney. He does not want to transfer patient and requested making her DNR comfort care status as per her expressed wishes when she had the sound in her judgment. Patient started on IV antibiotics, IV hydration and is being admitted in medical unit for comfort care and care coordination consult in am for hospice placement. Review of Systems Review of Systems: 14 systems were reviewed with pertinent positives and negatives per HPI. Except as documented in the HPI/progress notes, all other systems were reviewed and are negative. All systems reviewed & are unremarkable except as noted in HPI and below PMFSH Past Medical History Medical History Acute blood loss anemia Acute renal insufficiency Chronic renal failure Anemia Aortic valve stenosis Atrial fibrillation Paroxysmal AVM (arteriovenous malformation) of stomach, acquired Basal cell carcinoma Cirrhosis noted by CT scan in 2018 with portal venous hypertension Colon, diverticulosis COPD (chronic obstructive pulmonary disease) Diastolic congestive heart failure Encounter for removal of skin lesion H/O: GI bleed 2018 History of obstructive sleep apnea Intolerant of the CPAP History of recurrent UTIs Hypercholesterolemia Hyperlipidemia Hypertensive heart disease Moderate aortic valve stenosis Paroxysmal atrial fibrillation Pulmonary hypertension Seizure Type 2 diabetes mellitus Surgical History Surgical History H/O arthroscopy of left knee H/O dilation and curettage H/O rectal polypectomy H/O shoulder surgery Bilateral pens that were later removed. H/O: hysterectomy History of Chelly fundoplication History of tonsillectomy Family History Family History Sibling Cerebrovascular accident, Onset Age: 60 Brother and sister Family history of renal failure Patient's sister is Patient's brother is Hypertension Brother Diabetes mellitus Brother and sister Mother Patient's mother is Family history of diabetes mellitus in first degree relative Heart disease Father Family history of malignant neoplasm, Onset Age: 88 Leukemia Hypertension Social History Social History Social History: The patient lives with her Pawan who is a durable power transactional attorney for healthcare. The patient desires to be a full code. Her son Trev is her only child. She worked at [employer] adult and children. She smokes 3-5 cigarettes a day. She occasionally has a Ingris with a [place]ian food. Smoking packs per day: 0.5 Smoking cigarettes per day: 10.0 Years smoked: 50 Smoking pack-years: 25.00 Smoking status: Former smoker Tobacco type: cigarettes Second hand tobacco smoke exposure: No Smoking end date: 06/10/16 Additional smoking assessment comments: pt family stated that she has smoked maybe two packs in the past year Alcohol intake: current Drinks per week: 7 Substance use: unknown Substance use type: does not use Other substance usage details: daily drinker Lack of
[2023-11-15] MEDS: dexAMETHasone SOD PHOS INJ 10 MG/ML 1 ML VIAL 4 MG IV PUSH ×3 (01:07→12:22)
[2023-11-15 06:00] VITALS: BP 150/84; PULSE 75; RESP 12; TEMP 36.3; O2SAT 94
--- NOTE | 2023-11-15 08:30 | PM.IMPN ---
Progress Note: A&P Assessment and Plan (1) Terminal care: Code(s): Z51.5 - Encounter for palliative care Status: Acute Assessment and Plan: P.r.n. vital signs, I&Os, neuro status per family request, the patient is a fall risk bleeding risk May section as needed for increased secretions and patient comfort Morphine sulfate 20 mg/mL-give 0.5 mg oral solution under the tongue every 4 hours p.r.n. Atropine sulfate 1% ophthalmic solution-give 2 drops as needed every 3 hours for oral secretions Acetaminophen 650 mg suppository, give MD 1 capsule every 6 hours as needed Lorazepam 2 mg/1 mL-give 0.25 mL every 4 hours as needed for restlessness Apply scopolamine patch for oral secretions Activities: Up with assistance Vital signs Q shift p.r.n. family request Plan oxygen per nasal cannula as needed for patient comfort May insert Ch catheter for patient comfort Care coordination consult for institutionalized hospice versus home hospice placement (2) Brain tumor: Code(s): D49.6 - Neoplasm of unspecified behavior of brain Status: Acute Assessment and Plan: CT head revealed a parenchymal left temporal lobe mass with surrounding vasogenic edema. Likely a metastatic lesion. Neurosurgery was consulted who advised patient transfer to [place]. Transfer was discussed with Grandson (LAURA), who refused, placing patient on comfort care status. (3) Acute UTI: Code(s): N39.0 - Urinary tract infection, site not specified Status: Acute Assessment and Plan: - UA: cloudy appearance, 2+ protein, 3+ glucose, 1+ ketones, 21-50 RBC, 11-20 WBC, 4+ bacteria, yeast present - UC obtained on 11/13: pending - No previous micro to be reviewed - started on IV Rocephin in the ER for UTI which we will continue on the floor - Insert Ch catheter for patient's comfort and I&Os monitoring - Gentle IV hydration ordered with normal saline at 75 cc/hour - Follow temp curve, renal function, cultures, WBC, and VS Subjective Date/time seen: 11/15/23 08:30 Exam Narrative: AF General: well nourished, well-developed female in no acute respiratory distress who is nontoxic appearing, lying semi recumbent in bed. HEENT: Normocephalic. Atraumatic. Pupils equal round reactive to light. Extraocular movement intact. Sclera clear and anicteric. Nares patent. No oral lesions. Moist mucous membranes. Tongue is midline. Palate trae symmetrically. No facial asymmetry. Neck: Neck was supple. No dominant adenopathy, thyromegaly or masses. 2+ carotid upstrokes without bruits. Chest: Lungs are clear to auscultation bilaterlly. No wheezes or crackles. CV: Heart was regular rate and rhythm. S1-S2. No murmurs, gallops, or rubs. Abd: Abdomen was soft. Nontender. Nondistended. Postive bowel sounds. No organomegaly or masses. Ext: No clubbing, cyanosis, or edema. 2+ DP pulses bilaterally. Neuro: Patient is alert and oriented x4. Strenth is 5/5 in both upper and lower extremities. Cranial nerves 2-12 are intact. Speech is clear. Psych: Normal nood and affect. Patient is pleasant and cooperative. Skin: Warm and dry. No rashes noted. Objective Data Vital Signs Vital Signs: Vital Signs - 24 hr 11/14/23 08:32 11/14/23 08:47 11/14/23 09:02 Temperature Pulse Rate 95 87 84 Respiratory Rate 27 H 25 H 25 H Blood Pressure 187/81 H 169/74 H 174/89 H Pulse Oximetry 99 99 99 11/14/23 09:32 11/14/23 10:02 11/14/23 10:17 Temperature Pulse Rate 83 83 84 Respiratory Rate 22 H 24 H 37 H Blood Pressure 165/60 H 173/84 H 142/65 H Pulse Oximetry 99 98 98 11/14/23 10:49 11/14/23 11:00 11/14/23 11:02 Temperature Pulse Rate 92 89 91 Respiratory Rate 24 H 25 H 20 Blood Pressure 171/67 H Pulse Oximetry 11/14/23 11:16 11/14/23 11:30 11/14/23 11:45 Temperature Pulse Rate 92 85 80 Respiratory Rate 23 H 23 H 26 H Blood Pressure Pulse Oximetry 96 95 95 11/14/23 14:01 11/14/23 16:02 11/14/23 17:01 T
[2023-11-15] MEDS: MORPHINE SULFATE (*CRX) 2 MG/ML INJ IV PUSH ×2 (08:54→14:28)
[2023-11-15 09:08] VITALS: O2SAT 94
[2023-11-15] MEDS: SODIUM CHLORIDE 0.9% IV 1,000 ML 75 ML IV CONT (10:19)
--- NOTE | 2023-11-15 14:36 | PM.DS ---
DS: Admitting Diagnosis Discharge Date 11/15/23 Admitting Diagnosis Palliative care encounter Brain tumor Hx of arterial ischemic stroke Diastolic heart failure Chronic renal disease stage III Type 2 diabetes Acute UTI DS: Discharge Diagnosis Discharge Diagnosis (1) Palliative care encounter: Code(s): Z51.5 - Encounter for palliative care Status: Acute (2) Brain tumor: Code(s): D49.6 - Neoplasm of unspecified behavior of brain Status: Acute (3) Diastolic heart failure: Code(s): I50.30 - Unspecified diastolic (congestive) heart failure Status: Acute (4) Back pain: Code(s): M54.9 - Dorsalgia, unspecified Status: Acute (5) CRD (chronic renal disease), stage III: Code(s): N18.30 - Chronic kidney disease, stage 3 unspecified Status: Acute (6) Type 2 diabetes mellitus: Qualifiers: Diabetes 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 speed 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 insulin use: unspecified long-term insulin use status Diabetes mellitus complication status: without complication Qualified Code(s): E11.9 - Type 2 diabetes mellitus without complications Code(s): E11.9 - Type 2 diabetes mellitus without complications Status: Acute (7) Acute UTI: Code(s): N39.0 - Urinary tract infection, site not specified Status: Acute DS: Summary Hospital Course Reason for hospitalization: Palliative care encounter Brain tumor Hx of arterial ischemic stroke Diastolic heart failure Chronic renal disease stage III Type 2 diabetes Hospital Course: 72 year old female with past medical history of CVA, HTN, DM, HLD, COPD, heart failure, CKD, and other chronic conditions presented to the hospital from home for failure to thrive. Patient found to have UTI on UA and started on IV antibiotics. A 2.2 x 1.3 x 2.7 cm parenchymal left temporal lobe mass with surrounding vasogenic edema seen on head CT. Neurosurgery consulted and recommended patient transfer due to lesion location and edema. Discussed with grandson who is POA and instead patient was placed on comfort measures. Patient was placed on hospice 11/14 with [facility]. Patient discharged to inpatient hospice. Status at Discharge Functional status at discharge: bed bound Time Spent with Patient Time attestation: Total time spent providing and/or coordinating discharge services: Time spent: Greater than 30 minutes Exam Narrative: General: female in no acute respiratory distress HEENT: Normocephalic. Atraumatic. Chest: Even chest rise and fall Abd: Abdomen nondistended. Ext: No clubbing, cyanosis, or edema. Neuro: Patient is AOx0 crying out in pain. Skin: Warm and dry. No rashes noted. DS: Data Data Completed and Pending Completed studies during hospitalization: Chest XR Head CT Discharge Plan Discharge Attending physician on discharge: Billy Luz Consulting providers: Telly Castillo Discharging Clinician: Marjan Miranda Anticipated Discharge Date/Time: 11/15/23 14:32 Patient Disposition: Hospice - Medical Facility Activity: as tolerated Diet: as tolerated Discharge Instructions: Follow up with as instructed. Patient Instructions: Hospice Care (GEN) Patient Language: Kazakh Stand Alone Forms: General Discharge Information Follow-up/Referrals: Enoch Gandhi, [Physician] - Discharge Medications: Continued magnesium oxide [MagOx] 400 mg (241.3 mg magnesium) tablet 400 mg PO DAILY aspirin 325 mg tablet 325 mg PO DAILY metoprolol tartrate 25 mg tablet 25 mg PO BID Qty: 180 1RF potassium chloride 10 mEq capsule, extended release 10 meq PO BID Qty: 180 2RF albuterol sulfate [Proventil HFA] 90 mcg/actuation HFA aerosol inhaler 2 puff inhalation Q6-8H PRN (Reason: shortness of breath or wheezing) Qty: 8.5 5RF oxycodone 5 mg Tablet 5 mg PO Q4H PRN (Reason: Moderate Pain (4-6)) Qty: 20 0RF Date of admission: 11/14/23 17:06 Primary Care Provider:
== END 2023-11-15 14:35 | disposition hospice, inpatient (51) | DRG 951 ==
LOC: ANHED 17:05 → ANH3MEDSUR 18:14
PROVIDERS: Emergency Medicine; Admitting Provider Internal Medicine; Emergency Provider Emergency Medicine; PCP Internal Medicine; Visit Provider Hospitalist
DX: Z51.5 Encounter for palliative care (principal); G93.6 Cerebral edema; I13.0 Hypertensive heart and chronic kidney disease with heart failure and stage 1 through stage 4 chronic kidney disease, or unspecified chronic kidney disease; I50.32 Chronic diastolic (congestive) heart failure; N39.0 Urinary tract infection, site not specified; D49.6 Neoplasm of unspecified behavior of brain; E11.22 Type 2 diabetes mellitus with diabetic chronic kidney disease; N18.30 Chronic kidney disease, stage 3 unspecified; M54.9 Dorsalgia, unspecified; R62.7 Adult failure to thrive; D64.9 Anemia, unspecified; I35.0 Nonrheumatic aortic (valve) stenosis; I48.0 Paroxysmal atrial fibrillation; K31.819 Angiodysplasia of stomach and duodenum without bleeding; G47.33 Obstructive sleep apnea (adult) (pediatric); E86.0 Dehydration; J44.9 Chronic obstructive pulmonary disease, unspecified; K74.60 Unspecified cirrhosis of liver; E78.5 Hyperlipidemia, unspecified; F10.90 Alcohol use, unspecified, uncomplicated; Z68.20 Body mass index [BMI] 20.0-20.9, adult; Z85.828 Personal history of other malignant neoplasm of skin; Z90.710 Acquired absence of both cervix and uterus; Z66 Do not resuscitate; Z87.891 Personal history of nicotine dependence; Z86.73 Personal history of transient ischemic attack (TIA), and cerebral infarction without residual deficits
CPT/HCPCS: 36415; 70450; 71045; 80053; 81001; 82550; 85025; 87077; 87086; 87088; 93005; 96365; 96367; 96375; 99285; J0696; J1100; J1953; J2270; J7030; J7040

== ENCOUNTER 2023-11-15 14:36 | HOS | payer OTHER, MEDICARE, SELFPAY ==
[2023-11-15] MEDS: HYDROmorphone HCL/PF (*CRX) 50 MG in SODIUM CHLORIDE 0.9% IV 95 ML IV CONT (15:34)
--- NOTE | 2023-11-15 16:01 | PM.IMHP ---
H&P: HPI History of Present Illness Date/Time: 11/15/23 16:01 Chief Complaint: Uncontrolled pain Narrative: unfortunate 72-year-old female had not gotten out of bed for 2-3 days prior to admission. She was found at home covered in her own feces and urine. She was brought the emergency room room were a urinalysis was consistent with UTI. Rocephin was initiated IV. Of more importance however she was found to have a large left temporal lobe mass with surrounding edema. Dexamethasone was initiated emergency department. After discussion with her grandson and the emergency department physician and hospitalist it was decided she would be admitted to hospice care for comfort. She had a previous stroke and quality of life was poor. She was having difficulty caring for herself. Her grandson, healthcare power of erisa attorney, decided that do not resuscitate status and inpatient hospice care would be appropriate and in accordance with her previously expressed wishes. Review of Systems Review of Systems: ROS unobtainable: Yes unobtainable due to medical condition PMFSH Past Medical History Medical History Acute blood loss anemia Acute renal insufficiency Chronic renal failure Anemia Aortic valve stenosis Atrial fibrillation Paroxysmal AVM (arteriovenous malformation) of stomach, acquired Basal cell carcinoma Cirrhosis noted by CT scan in 2018 with portal venous hypertension Colon, diverticulosis COPD (chronic obstructive pulmonary disease) Diastolic congestive heart failure Encounter for removal of skin lesion H/O: GI bleed 2018 History of obstructive sleep apnea Intolerant of the CPAP History of recurrent UTIs Hypercholesterolemia Hyperlipidemia Hypertensive heart disease Moderate aortic valve stenosis Paroxysmal atrial fibrillation Pulmonary hypertension Seizure Type 2 diabetes mellitus Surgical History Surgical History H/O arthroscopy of left knee H/O dilation and curettage H/O rectal polypectomy H/O shoulder surgery Bilateral pens that were later removed. H/O: hysterectomy History of Chelly fundoplication History of tonsillectomy Family History Family History Sibling Cerebrovascular accident, Onset Age: 60 Brother and sister Family history of renal failure Patient's sister is Patient's brother is Hypertension Brother Diabetes mellitus Brother and sister Mother Patient's mother is Family history of diabetes mellitus in first degree relative Heart disease Father Family history of malignant neoplasm, Onset Age: 88 Leukemia Hypertension Social History Social History Social History: The patient lives with her Pawan who is a durable power erisa attorney for healthcare. The patient desires to be a full code. Her son Trev is her only child. She worked at [employer] adult and children. She smokes 3-5 cigarettes a day. She occasionally has a Ingris with a [place]ic food. Smoking packs per day: 0.5 Smoking cigarettes per day: 10.0 Years smoked: 50 Smoking pack-years: 25.00 Smoking status: Former smoker Tobacco type: cigarettes Second hand tobacco smoke exposure: No Smoking end date: 06/10/16 Additional smoking assessment comments: pt family stated that she has smoked maybe two packs in the past year Alcohol intake: current Drinks per week: 7 Substance use: unknown Substance use type: does not use Other substance usage details: daily drinker Lack of Transportation: No Lack of Food: Never True Current Housing: I Have Housing Concerned About Future Housing: No Difficulty Paying Gas/Electric Bills: No Difficulty Paying for Meds: No Currently Unemployed: No Education
[2023-11-15] MEDS: PHENobarbitaL sodium (*CRX) 130 MG/ML VIAL 60 MG IV PUSH (16:23)
[2023-11-15] MEDS: HYDROmorphone HCL INJ (*CRX) 1 MG/ML SYR IV PUSH (16:24)
[2023-11-16] MEDS: PHENobarbitaL sodium (*CRX) 130 MG/ML VIAL 60 MG IV PUSH (00:12)
--- NOTE | 2023-11-17 13:13 | P.DN_ITS ---
Discharge Summary Date and Time Date of : 11/16/23 Time of : 06:10 Provider Pronounced By: Adalberto Galindo Probable Cause of Probable Cause of : Brain neoplasm, unspecified type Summary Hospital Course: Admitted to inpatient hospice service due to uncontrolled pain. Medications titrated to comfort. Mrs. Lu peacefully. Additional Data Confirmation of as documented by pronouncing clinician: Pupillary Reflex, Palpable Pulses, Response to Stimuli, Heart Tones and Breath Sounds Name of Provider Notified: Elina Guadalupe Provider Notified: 06:30 Provider Requests Autopsy: No Family Requests Autopsy: No Supervisor Sewer Maintenance Notified: Yes Date [facility] Notified of : 11/16/23 Time [facility] Notified of : 06:45
== END 2023-11-16 06:10 | disposition expired | DRG 951 ==
PROVIDERS: Admitting Provider Internal Medicine; PCP Internal Medicine; Visit Provider Internal Medicine
DX: Z51.5 Encounter for palliative care (principal); I13.0 Hypertensive heart and chronic kidney disease with heart failure and stage 1 through stage 4 chronic kidney disease, or unspecified chronic kidney disease; I50.32 Chronic diastolic (congestive) heart failure; D49.6 Neoplasm of unspecified behavior of brain; N18.30 Chronic kidney disease, stage 3 unspecified; E11.22 Type 2 diabetes mellitus with diabetic chronic kidney disease; D64.9 Anemia, unspecified; I35.0 Nonrheumatic aortic (valve) stenosis; I48.0 Paroxysmal atrial fibrillation; K31.819 Angiodysplasia of stomach and duodenum without bleeding; K74.60 Unspecified cirrhosis of liver; J44.9 Chronic obstructive pulmonary disease, unspecified; G47.33 Obstructive sleep apnea (adult) (pediatric); E78.5 Hyperlipidemia, unspecified; Z86.73 Personal history of transient ischemic attack (TIA), and cerebral infarction without residual deficits; Z85.828 Personal history of other malignant neoplasm of skin; Z87.891 Personal history of nicotine dependence
CPT/HCPCS: A9270; J1170; J2560